=== PATIENT | female | born 1955 | race Caucasian/White ===

== ENCOUNTER 2016-11-19 08:00 | Inpatient (IN) | payer MEDICARE, MEDICAID ==
[~2016-11-19] VITALS: Ht 170.2 cm; Wt 99.9 kg
[~2016-11-19 08:00] MED LIST: BENZ2TAB10 PO; CLOZ100 PO; LACT1TAB20 PO; LEVO50 PO; PANT40TA25 PO; PREM625 PO; QUET200T PO
[2016-11-19] MEDS ORDERED: DOCU250C91 PO (08:19)
[2016-11-19 08:54] LABS: BASOPHILS # (AUTO) 0.05 K/uL (0.00-0.20); BASOPHILS % (AUTO) 0.6 % (0.0-2.0); EOSINOPHILS # (AUTO) 0.19 K/uL (0.00-0.70); HEMATOCRIT 40.1 % (36-46); HEMOGLOBIN 13.5 g/dL (12.0-16.0); LYMPHOCYTES # (AUTO) 2.8 K/uL (1.0-4.8); LYMPHOCYTES % (AUTO) 34.1 % (22.0-44.0); MEAN CORPUSCULAR HEMOGLOBIN 29.3 pg (26.0-34.0); MEAN CORPUSCULAR HGB CONC 33.7 G/dL (31.0-37.0); MEAN CORPUSCULAR VOLUME 87 fL (80-100); MONOCYTES # (AUTO) 0.7 K/uL (0.1-1.0); MONOCYTES % (AUTO) 8.2 % (2.0-9.0); NEUTROPHILS # (AUTO) 4.6 K/uL (1.8-7.7); NEUTROPHILS % (AUTO) 54.9 % (40.0-70.0); PLATELET COUNT (AUTO) 323 K/uL (150-450); RED BLOOD CELL COUNT(AUTO) 4.62 MIL/uL (4.00-5.20); RED CELL DISTRIBUTION WIDTH 14.8 % (11.5-14.5); WHITE BLOOD COUNT (AUTO) 8.3 K/uL (4.5-11.0)
[2016-11-19 09:02] LABS: ANION GAP 9 mmol/L (8-16); CALCIUM, TOTAL 9.3 mg/dL (8.8-10.5); CARBON DIOXIDE 25 mmol/L (22-29); CHLORIDE 104 mmol/L (98-107); GLOMERULAR FILTR. RATE CALC > 60 mL/min (>60); POTASSIUM 3.7 mmol/L (3.5-5.1); SODIUM SERUM 138 mmol/L (136-145); UREA NITROGEN, BLOOD 18 mg/dL (7-18)
[2016-11-19 09:08] LABS: ALANINE AMINOTRANSFERASE 28 U/L (12-78); ALBUMIN 3.7 g/dL (3.4-5.0); ASPARTATE AMINOTRANSFERASE 18 U/L (15-37); BILIRUBIN,TOTAL 0.4 mg/dL (0.1-1.0); TOTAL PROTEIN, SERUM 7.2 g/dL (6.4-8.2)
[2016-11-19] MEDS ORDERED: LORazepam 2 MG/ML VIAL IM ONE (13:00)
[2016-11-19] MEDS ORDERED: HALOPERIDOL LACTATE 5 MG/ML VIAL IM ONE (13:00)
[2016-11-19 17:31] VITALS: BP 154/82
[2016-11-19 20:56] LABS: GLUCOSE,POINT OF CARE 126 MG/DL (70-110)
[2016-11-19] MEDS: BENZTROPINE MESYLATE 2 MG TABLET PO SCH (21:00)
[2016-11-19] MEDS: QUEtiapine FUMARATE 200 MG TABLET PO SCH (21:00)
[2016-11-19 22:31] LABS: GLUCOSE COMMENT 1 Doctor Notified; GLUCOSE,POINT OF CARE 102 MG/DL (70-110)
[2016-11-19 22:50] VITALS: BP 140/73
[2016-11-19] MEDS: LORazepam 2 MG TABLET PO PRN (23:02)
[2016-11-20 00:25] VITALS: BP 110/66
[2016-11-20] MEDS: HALOPERIDOL 5 MG TABLET PO PRN ×2 (00:30→12:42)
[2016-11-20] MEDS: ZOLPIDEM TARTRATE 10 MG TABLET PO PRN (00:30)
[2016-11-20] MEDS ORDERED: PNEUMOCOCCAL VACCINE POLYVALENT 0.5 ML VIAL [PPSV23] IM ONE (03:15)
[2016-11-20] MEDS ORDERED: -PHARMACY VACCINE NOTE- MISC ONE ×2 (03:15)
[2016-11-20] MEDS: LEVOTHYROXINE SODIUM 50 MCG TABLET PO SCH (06:06)
[2016-11-20 09:13] VITALS: BP 126/72
[2016-11-20] MEDS: ESTROGENS,CONJUGATED 0.625 MG TABLET PO SCH (09:13)
[2016-11-20] MEDS: PANTOPRAZOLE SODIUM 40 MG DR TABLET PO SCH (09:13)
[2016-11-20] MEDS: NICOTINE 21 MG/24 HOUR PATCH TD SCH (09:13)
[2016-11-20] MEDS ORDERED: ACETAMINOPHEN 325 MG TABLET PO PRN (10:00)
[2016-11-20] MEDS ORDERED: IBUPROFEN 600 MG TABLET PO PRN (10:00)
[2016-11-20] MEDS ORDERED: ONDANSETRON HCL 4 MG TABLET PO PRN (10:00)
[2016-11-20] MEDS ORDERED: MAGNESIUM HYDROXIDE SUSPENSION 30 ML UDCUP PO PRN (10:00)
[2016-11-20] MEDS ORDERED: MAG HYDROX/AL HYDROX/SIMETH ES 30 ML SUSPENSION UDCUP PO PRN (10:00)
[2016-11-20] MEDS ORDERED: ALBUTEROL SULFATE HFA 90 MCG/PUFF 8 GM INHALER IH PRN (10:00)
[2016-11-20] MEDS ORDERED: BACITRACIN 28.4 GM OINTMENT TP PRN (10:00)
[2016-11-20] MEDS ORDERED: PETROLATUM,WHITE 71 GM JELLY TP PRN (10:00)
[2016-11-20] MEDS ORDERED: CloNIDine HCL 0.1 MG TABLET PO PRN (10:00)
[2016-11-20] MEDS ORDERED: LOPERAMIDE HCL 2 MG CAPSULE PO PRN (10:00)
[2016-11-20] MEDS ORDERED: BENZOCAINE/MENTHOL LOZENGE MM PRN (10:00)
[2016-11-20] MEDS: LORazepam 2 MG TABLET PO PRN (12:42)
[2016-11-20 16:17] VITALS: BP 115/64
[2016-11-20] MEDS: NYSTATIN 30 GM CREAM TP SCH (16:25)
[2016-11-20] MEDS: BENZTROPINE MESYLATE 2 MG TABLET PO SCH (20:23)
[2016-11-20] MEDS: QUEtiapine FUMARATE 200 MG TABLET PO SCH (20:23)
[2016-11-21 00:17] VITALS: BP 107/67
[2016-11-21] MEDS: LORazepam 2 MG TABLET PO PRN (01:02)
[2016-11-21] MEDS: HALOPERIDOL 5 MG TABLET PO PRN (01:02)
[2016-11-21] MEDS: LEVOTHYROXINE SODIUM 50 MCG TABLET PO SCH (05:51)
[2016-11-21] MEDS: NICOTINE 21 MG/24 HOUR PATCH TD SCH (09:00)
[2016-11-21] MEDS: ESTROGENS,CONJUGATED 0.625 MG TABLET PO SCH (09:09)
[2016-11-21] MEDS: PANTOPRAZOLE SODIUM 40 MG DR TABLET PO SCH (09:09)
[2016-11-21] MEDS: NYSTATIN 30 GM CREAM TP SCH ×2 (09:09→17:51)
[2016-11-21 09:14] VITALS: BP 109/60
[2016-11-21 16:02] VITALS: BP 132/72
[2016-11-21] MEDS: QUEtiapine FUMARATE 200 MG TABLET PO SCH (21:22)
[2016-11-21] MEDS: BENZTROPINE MESYLATE 2 MG TABLET PO SCH (21:22)
[2016-11-22 01:55] VITALS: BP 122/70
[2016-11-22] MEDS: LEVOTHYROXINE SODIUM 50 MCG TABLET PO SCH (06:30)
[2016-11-22 08:15] VITALS: BP 101/76
[2016-11-22] MEDS: PANTOPRAZOLE SODIUM 40 MG DR TABLET PO SCH (08:25)
[2016-11-22] MEDS: ESTROGENS,CONJUGATED 0.625 MG TABLET PO SCH (08:25)
[2016-11-22] MEDS: NYSTATIN 30 GM CREAM TP SCH ×2 (08:25→16:40)
[2016-11-22] MEDS: NICOTINE 21 MG/24 HOUR PATCH TD SCH (08:25)
[2016-11-22 16:11] VITALS: BP 116/71
[2016-11-22] MEDS: QUEtiapine FUMARATE 200 MG TABLET PO SCH (20:31)
[2016-11-22] MEDS: BENZTROPINE MESYLATE 2 MG TABLET PO SCH (20:31)
[2016-11-23 00:46] VITALS: BP 102/72
[2016-11-23] MEDS: LEVOTHYROXINE SODIUM 50 MCG TABLET PO SCH (06:15)
[2016-11-23] MEDS: ESTROGENS,CONJUGATED 0.625 MG TABLET PO SCH (08:50)
[2016-11-23] MEDS: PANTOPRAZOLE SODIUM 40 MG DR TABLET PO SCH (08:50)
[2016-11-23 08:51] VITALS: BP 147/89
[2016-11-23] MEDS: NYSTATIN 30 GM CREAM TP SCH ×2 (09:44→16:32)
[2016-11-23 16:09] VITALS: BP 125/79
[2016-11-23] MEDS: QUEtiapine FUMARATE 200 MG TABLET PO SCH (20:36)
[2016-11-23] MEDS: BENZTROPINE MESYLATE 2 MG TABLET PO SCH (20:36)
[2016-11-24 05:11] VITALS: BP 130/82
[2016-11-24] MEDS: LEVOTHYROXINE SODIUM 50 MCG TABLET PO SCH (06:14)
[2016-11-24 08:42] VITALS: BP 126/72
[2016-11-24] MEDS: ESTROGENS,CONJUGATED 0.625 MG TABLET PO SCH (09:14)
[2016-11-24] MEDS: NYSTATIN 30 GM CREAM TP SCH ×2 (09:14→16:46)
[2016-11-24] MEDS: PANTOPRAZOLE SODIUM 40 MG DR TABLET PO SCH (09:14)
[2016-11-24] MEDS: LORazepam 2 MG TABLET PO PRN (14:28)
[2016-11-24] MEDS: HALOPERIDOL 5 MG TABLET PO PRN (14:28)
[2016-11-24 16:03] VITALS: BP 119/61
[2016-11-24] MEDS: CloZAPine 100 MG TABLET PO SCH (20:34)
[2016-11-24] MEDS: BENZTROPINE MESYLATE 2 MG TABLET PO SCH (20:34)
[2016-11-24] MEDS: QUEtiapine FUMARATE 200 MG TABLET PO SCH (20:34)
[2016-11-25 04:15] VITALS: BP_SYST 122; BP_SYST 131; BP_DIAS 71; BP_DIAS 87
[2016-11-25] MEDS: LEVOTHYROXINE SODIUM 50 MCG TABLET PO SCH (06:50)
[2016-11-25 07:59] LABS: BASOPHILS % (AUTO) 0.6 % (0.0-2.0); EOSINOPHILS % (AUTO) 3.2 % (1.0-6.0); HEMATOCRIT 38.8 % (36-46); HEMOGLOBIN 12.7 g/dL (12.0-16.0); LYMPHOCYTES # (AUTO) 2.7 K/uL (1.0-4.8); MEAN CORPUSCULAR HEMOGLOBIN 29.1 pg (26.0-34.0); MEAN CORPUSCULAR HGB CONC 32.6 G/dL (31.0-37.0); MEAN CORPUSCULAR VOLUME 89 fL (80-100); MONOCYTES # (AUTO) 0.9 K/uL (0.1-1.0); MONOCYTES % (AUTO) 9.8 % (2.0-9.0); NEUTROPHILS % (AUTO) 56.4 % (40.0-70.0); PLATELET COUNT (AUTO) 309 K/uL (150-450); RED BLOOD CELL COUNT(AUTO) 4.34 MIL/uL (4.00-5.20); RED CELL DISTRIBUTION WIDTH 14.4 % (11.5-14.5); WHITE BLOOD COUNT (AUTO) 8.9 K/uL (4.5-11.0)
[2016-11-25] MEDS: ESTROGENS,CONJUGATED 0.625 MG TABLET PO SCH (08:30)
[2016-11-25] MEDS: PANTOPRAZOLE SODIUM 40 MG DR TABLET PO SCH (08:30)
[2016-11-25] MEDS: NYSTATIN 30 GM CREAM TP SCH ×2 (08:31→16:27)
[2016-11-25] MEDS: CloZAPine 100 MG TABLET PO SCH ×2 (08:31→20:08)
[2016-11-25] MEDS: LORazepam 2 MG TABLET PO PRN (08:47)
[2016-11-25 09:14] VITALS: BP 112/60
[2016-11-25] MEDS ORDERED: LORazepam 2 MG/ML VIAL ONE (09:57)
[2016-11-25] MEDS ORDERED: DiphenhydrAMINE HCL 50 MG/ML VIAL ONE (09:58)
[2016-11-25] MEDS ORDERED: HALOPERIDOL LACTATE 5 MG/ML VIAL ONE (09:58)
[2016-11-25] MEDS ORDERED: LORazepam 2 MG/ML VIAL IM ONE (10:15)
[2016-11-25] MEDS ORDERED: DiphenhydrAMINE HCL 50 MG/ML VIAL IM ONE (10:15)
[2016-11-25] MEDS ORDERED: HALOPERIDOL LACTATE 5 MG/ML VIAL IM ONE (10:15)
[2016-11-25 10:43] VITALS: BP 119/72
[2016-11-25 16:04] VITALS: BP 109/66
[2016-11-25] MEDS: QUEtiapine FUMARATE 200 MG TABLET PO SCH (20:08)
[2016-11-25] MEDS: BENZTROPINE MESYLATE 2 MG TABLET PO SCH (20:08)
[2016-11-25] MEDS: ZOLPIDEM TARTRATE 10 MG TABLET PO PRN (21:01)
[2016-11-25] MEDS: HALOPERIDOL 5 MG TABLET PO PRN (21:01)
[2016-11-26] MEDS: LEVOTHYROXINE SODIUM 50 MCG TABLET PO SCH (06:52)
[2016-11-26 07:27] VITALS: BP 108/66
[2016-11-26] MEDS: CloZAPine 100 MG TABLET PO SCH ×2 (08:54→20:41)
[2016-11-26] MEDS: ESTROGENS,CONJUGATED 0.625 MG TABLET PO SCH (08:54)
[2016-11-26] MEDS: PANTOPRAZOLE SODIUM 40 MG DR TABLET PO SCH (08:54)
[2016-11-26] MEDS: NYSTATIN 30 GM CREAM TP SCH ×2 (08:55→16:10)
[2016-11-26] MEDS: LORazepam 2 MG TABLET PO PRN ×2 (09:02→16:11)
[2016-11-26 09:25] VITALS: BP 119/74
[2016-11-26] MEDS: HALOPERIDOL 5 MG TABLET PO PRN (12:19)
[2016-11-26 16:11] VITALS: BP 117/84
[2016-11-26] MEDS: QUEtiapine FUMARATE 200 MG TABLET PO SCH (20:41)
[2016-11-26] MEDS: BENZTROPINE MESYLATE 2 MG TABLET PO SCH (20:41)
[2016-11-27 05:21] VITALS: BP 100/60
[2016-11-27] MEDS: LORazepam 2 MG TABLET PO PRN ×3 (05:28→17:05)
[2016-11-27] MEDS: LEVOTHYROXINE SODIUM 50 MCG TABLET PO SCH (06:24)
[2016-11-27] MEDS: ESTROGENS,CONJUGATED 0.625 MG TABLET PO SCH (08:29)
[2016-11-27] MEDS: CloZAPine 100 MG TABLET PO SCH ×2 (08:29→20:29)
[2016-11-27] MEDS: PANTOPRAZOLE SODIUM 40 MG DR TABLET PO SCH (08:29)
[2016-11-27] MEDS: HALOPERIDOL 5 MG TABLET PO PRN (08:29)
[2016-11-27] MEDS: NYSTATIN 30 GM CREAM TP SCH ×2 (08:30→16:31)
[2016-11-27 08:49] VITALS: BP 118/75
[2016-11-27 16:00] VITALS: BP 125/72
[2016-11-27] MEDS: BENZTROPINE MESYLATE 2 MG TABLET PO SCH (20:29)
[2016-11-27] MEDS: QUEtiapine FUMARATE 200 MG TABLET PO SCH (20:30)
[2016-11-28 00:17] VITALS: BP 110/65
[2016-11-28] MEDS: LEVOTHYROXINE SODIUM 50 MCG TABLET PO SCH (06:44)
[2016-11-28] MEDS: ESTROGENS,CONJUGATED 0.625 MG TABLET PO SCH (08:34)
[2016-11-28] MEDS: CloZAPine 100 MG TABLET PO SCH ×2 (08:34→20:43)
[2016-11-28] MEDS: PANTOPRAZOLE SODIUM 40 MG DR TABLET PO SCH (08:34)
[2016-11-28 09:03] VITALS: BP 134/81
[2016-11-28] MEDS: NYSTATIN 30 GM CREAM TP SCH ×2 (09:36→16:33)
[2016-11-28 16:00] VITALS: BP 112/60
[2016-11-28] MEDS: HALOPERIDOL 5 MG TABLET PO PRN (18:28)
[2016-11-28] MEDS: QUEtiapine FUMARATE 200 MG TABLET PO SCH (20:43)
[2016-11-28] MEDS: BENZTROPINE MESYLATE 2 MG TABLET PO SCH (20:43)
[2016-11-29 01:29] VITALS: BP 111/95
[2016-11-29] MEDS: LEVOTHYROXINE SODIUM 50 MCG TABLET PO SCH (06:39)
[2016-11-29 08:11] VITALS: BP 120/68
[2016-11-29] MEDS: CloZAPine 100 MG TABLET PO SCH ×2 (10:03→20:35)
[2016-11-29] MEDS: ESTROGENS,CONJUGATED 0.625 MG TABLET PO SCH (10:03)
[2016-11-29] MEDS: PANTOPRAZOLE SODIUM 40 MG DR TABLET PO SCH (10:03)
[2016-11-29] MEDS: NYSTATIN 30 GM CREAM TP SCH ×2 (10:03→16:49)
[2016-11-29 16:02] VITALS: BP 123/70
[2016-11-29] MEDS: BENZTROPINE MESYLATE 2 MG TABLET PO SCH (20:35)
[2016-11-29] MEDS: QUEtiapine FUMARATE 200 MG TABLET PO SCH (20:35)
[2016-11-30 01:52] VITALS: BP 116/67
[2016-11-30] MEDS: LEVOTHYROXINE SODIUM 50 MCG TABLET PO SCH (06:36)
[2016-11-30] MEDS: CloZAPine 100 MG TABLET PO SCH ×2 (08:14→20:47)
[2016-11-30] MEDS: PANTOPRAZOLE SODIUM 40 MG DR TABLET PO SCH (08:14)
[2016-11-30] MEDS: NYSTATIN 30 GM CREAM TP SCH ×2 (08:15→16:07)
[2016-11-30] MEDS: ESTROGENS,CONJUGATED 0.625 MG TABLET PO SCH (08:15)
[2016-11-30 08:44] VITALS: BP 118/68
[2016-11-30 16:01] VITALS: BP 122/82
[2016-11-30] MEDS: HALOPERIDOL 5 MG TABLET PO PRN (17:51)
[2016-11-30] MEDS: QUEtiapine FUMARATE 200 MG TABLET PO SCH (20:47)
[2016-11-30] MEDS: LORazepam 2 MG TABLET PO PRN (20:47)
[2016-11-30] MEDS: BENZTROPINE MESYLATE 2 MG TABLET PO SCH (20:47)
[2016-12-01 01:21] VITALS: BP 115/69
[2016-12-01] MEDS: LEVOTHYROXINE SODIUM 50 MCG TABLET PO SCH (05:51)
[2016-12-01 08:04] VITALS: BP 127/68
[2016-12-01] MEDS: NYSTATIN 30 GM CREAM TP SCH ×2 (09:36→16:32)
[2016-12-01] MEDS: CloZAPine 100 MG TABLET PO SCH ×2 (09:36→20:32)
[2016-12-01] MEDS: ESTROGENS,CONJUGATED 0.625 MG TABLET PO SCH (09:36)
[2016-12-01] MEDS: PANTOPRAZOLE SODIUM 40 MG DR TABLET PO SCH (09:36)
[2016-12-01 16:31] VITALS: BP 124/76
[2016-12-01] MEDS: BENZTROPINE MESYLATE 2 MG TABLET PO SCH (20:32)
[2016-12-01] MEDS: QUEtiapine FUMARATE 200 MG TABLET PO SCH (20:32)
[2016-12-02 00:03] VITALS: BP 120/60
[2016-12-02] MEDS: LEVOTHYROXINE SODIUM 50 MCG TABLET PO SCH (06:13)
[2016-12-02 08:24] LABS: BASOPHILS % (AUTO) 0.5 % (0.0-2.0); HEMATOCRIT 38.2 % (36-46); HEMOGLOBIN 12.3 g/dL (12.0-16.0); LYMPHOCYTES # (AUTO) 3.6 K/uL (1.0-4.8); LYMPHOCYTES % (AUTO) 37.7 % (22.0-44.0); MEAN CORPUSCULAR HEMOGLOBIN 28.9 pg (26.0-34.0); MEAN CORPUSCULAR HGB CONC 32.1 G/dL (31.0-37.0); MEAN CORPUSCULAR VOLUME 90 fL (80-100); MONOCYTES % (AUTO) 10.1 % (2.0-9.0); NEUTROPHILS # (AUTO) 4.4 K/uL (1.8-7.7); NEUTROPHILS % (AUTO) 46.7 % (40.0-70.0); PLATELET COUNT (AUTO) 317 K/uL (150-450); RED BLOOD CELL COUNT(AUTO) 4.25 MIL/uL (4.00-5.20); WHITE BLOOD COUNT (AUTO) 9.5 K/uL (4.5-11.0)
[2016-12-02] MEDS: ESTROGENS,CONJUGATED 0.625 MG TABLET PO SCH (09:09)
[2016-12-02] MEDS: CloZAPine 100 MG TABLET PO SCH ×2 (09:09→20:13)
[2016-12-02] MEDS: PANTOPRAZOLE SODIUM 40 MG DR TABLET PO SCH (09:10)
[2016-12-02] MEDS: NYSTATIN 30 GM CREAM TP SCH ×2 (09:10→16:30)
[2016-12-02 09:20] VITALS: BP 145/83
[2016-12-02] MEDS: LORazepam 2 MG TABLET PO PRN (09:43)
[2016-12-02 16:09] VITALS: BP 119/63
[2016-12-02] MEDS: BENZTROPINE MESYLATE 2 MG TABLET PO SCH (20:13)
[2016-12-02] MEDS: QUEtiapine FUMARATE 200 MG TABLET PO SCH (20:13)
[2016-12-03 01:23] VITALS: BP 122/68
[2016-12-03] MEDS: LEVOTHYROXINE SODIUM 50 MCG TABLET PO SCH (06:00)
[2016-12-03] MEDS: CloZAPine 100 MG TABLET PO SCH ×2 (08:31→20:10)
[2016-12-03] MEDS: ESTROGENS,CONJUGATED 0.625 MG TABLET PO SCH (08:31)
[2016-12-03] MEDS: HALOPERIDOL 5 MG TABLET PO PRN ×2 (08:31→16:06)
[2016-12-03] MEDS: PANTOPRAZOLE SODIUM 40 MG DR TABLET PO SCH (08:31)
[2016-12-03] MEDS: NYSTATIN 30 GM CREAM TP SCH ×2 (08:32→16:06)
[2016-12-03 09:07] VITALS: BP 111/73
[2016-12-03 16:06] VITALS: BP 138/80
[2016-12-03] MEDS: BENZTROPINE MESYLATE 2 MG TABLET PO SCH (20:10)
[2016-12-03] MEDS: QUEtiapine FUMARATE 200 MG TABLET PO SCH (20:10)
[2016-12-04 03:22] VITALS: BP 118/81
[2016-12-04] MEDS: LEVOTHYROXINE SODIUM 50 MCG TABLET PO SCH (06:20)
[2016-12-04] MEDS: ESTROGENS,CONJUGATED 0.625 MG TABLET PO SCH (08:48)
[2016-12-04] MEDS: PANTOPRAZOLE SODIUM 40 MG DR TABLET PO SCH (08:48)
[2016-12-04] MEDS: CloZAPine 100 MG TABLET PO SCH ×2 (08:48→20:38)
[2016-12-04] MEDS: NYSTATIN 30 GM CREAM TP SCH ×2 (08:49→16:32)
[2016-12-04] MEDS: LORazepam 2 MG TABLET PO PRN ×2 (08:49→20:09)
[2016-12-04 08:53] VITALS: BP 124/80
[2016-12-04 16:36] VITALS: BP 125/68
[2016-12-04] MEDS: BENZTROPINE MESYLATE 2 MG TABLET PO SCH (20:38)
[2016-12-04] MEDS: QUEtiapine FUMARATE 200 MG TABLET PO SCH (20:38)
[2016-12-05 05:21] VITALS: BP 125/83
[2016-12-05] MEDS: LEVOTHYROXINE SODIUM 50 MCG TABLET PO SCH (06:38)
[2016-12-05] MEDS: CloZAPine 100 MG TABLET PO SCH ×2 (08:32→20:31)
[2016-12-05] MEDS: NYSTATIN 30 GM CREAM TP SCH ×2 (08:32→16:35)
[2016-12-05] MEDS: PANTOPRAZOLE SODIUM 40 MG DR TABLET PO SCH (08:32)
[2016-12-05] MEDS: ESTROGENS,CONJUGATED 0.625 MG TABLET PO SCH (08:32)
[2016-12-05 08:37] VITALS: BP 109/63
[2016-12-05] MEDS: LORazepam 2 MG TABLET PO PRN ×2 (09:03→13:15)
[2016-12-05 16:34] VITALS: BP 120/68
[2016-12-05] MEDS: BENZTROPINE MESYLATE 2 MG TABLET PO SCH (20:31)
[2016-12-05] MEDS: QUEtiapine FUMARATE 200 MG TABLET PO SCH (20:31)
[2016-12-06 00:48] VITALS: BP 119/64
[2016-12-06] MEDS: ZOLPIDEM TARTRATE 10 MG TABLET PO PRN (01:00)
[2016-12-06] MEDS: LEVOTHYROXINE SODIUM 50 MCG TABLET PO SCH (06:20)
[2016-12-06 08:07] VITALS: BP 100/61
[2016-12-06] MEDS: NYSTATIN 30 GM CREAM TP SCH ×2 (08:46→16:25)
[2016-12-06] MEDS: ESTROGENS,CONJUGATED 0.625 MG TABLET PO SCH (08:46)
[2016-12-06] MEDS: CloZAPine 100 MG TABLET PO SCH ×2 (08:46→20:53)
[2016-12-06] MEDS: PANTOPRAZOLE SODIUM 40 MG DR TABLET PO SCH (08:46)
[2016-12-06 16:05] VITALS: BP 125/79
[2016-12-06] MEDS: BENZTROPINE MESYLATE 2 MG TABLET PO SCH (20:53)
[2016-12-06] MEDS: QUEtiapine FUMARATE 200 MG TABLET PO SCH (20:53)
[2016-12-07 00:03] VITALS: BP 108/61
[2016-12-07] MEDS: LEVOTHYROXINE SODIUM 50 MCG TABLET PO SCH (06:24)
[2016-12-07 08:12] VITALS: BP 110/67
[2016-12-07] MEDS: NYSTATIN 30 GM CREAM TP SCH ×2 (08:42→16:31)
[2016-12-07] MEDS: PANTOPRAZOLE SODIUM 40 MG DR TABLET PO SCH (08:42)
[2016-12-07] MEDS: CloZAPine 100 MG TABLET PO SCH ×2 (08:42→20:32)
[2016-12-07] MEDS: ESTROGENS,CONJUGATED 0.625 MG TABLET PO SCH (08:42)
[2016-12-07 16:06] VITALS: BP 133/75
[2016-12-07] MEDS: BENZTROPINE MESYLATE 2 MG TABLET PO SCH (20:32)
[2016-12-07] MEDS: QUEtiapine FUMARATE 200 MG TABLET PO SCH (20:32)
[2016-12-08 06:20] VITALS: BP 100/60
[2016-12-08] MEDS: LEVOTHYROXINE SODIUM 50 MCG TABLET PO SCH (06:35)
[2016-12-08 08:03] VITALS: BP 120/68
[2016-12-08] MEDS: ESTROGENS,CONJUGATED 0.625 MG TABLET PO SCH (08:43)
[2016-12-08] MEDS: CloZAPine 100 MG TABLET PO SCH (08:43)
[2016-12-08] MEDS: NYSTATIN 30 GM CREAM TP SCH (08:43)
[2016-12-08] MEDS: PANTOPRAZOLE SODIUM 40 MG DR TABLET PO SCH (08:43)
== END 2016-12-08 10:50 | disposition home or self-care (01) | DRG 885 ==
LOC: EMS 08:03 → AHU 13:30 → B2S 21:50 → B2X 22:21
PROVIDERS: ADMIT Psychiatry & Neurology Psychiatry; ATTEND Psychiatry & Neurology Psychiatry
DX: F20.0 Paranoid schizophrenia (principal); B35.6 Tinea cruris; E03.9 Hypothyroidism, unspecified; E11.9 Type 2 diabetes mellitus without complications; E66.9 Obesity, unspecified; E78.00 Pure hypercholesterolemia, unspecified; I10 Essential (primary) hypertension; J44.9 Chronic obstructive pulmonary disease, unspecified; G47.00 Insomnia, unspecified; K21.9 Gastro-esophageal reflux disease without esophagitis; K59.00 Constipation, unspecified; D64.9 Anemia, unspecified; M25.561 Pain in right knee; M25.562 Pain in left knee; M54.9 Dorsalgia, unspecified; M19.90 Unspecified osteoarthritis, unspecified site; F41.9 Anxiety disorder, unspecified; N95.1 Menopausal and female climacteric states; Z90.49 Acquired absence of other specified parts of digestive tract; Z98.890 Other specified postprocedural states; Z79.899 Other long term (current) drug therapy; Z68.33 Body mass index [BMI] 33.0-33.9, adult; Z28.89 Immunization not carried out for other reason
CPT/HCPCS: 82962; 87081; 96372; 99285; A0429; G0480; J1200; J1630; J2060

== ENCOUNTER 2017-02-06 15:59 | Inpatient (IN) | payer MEDICARE, SELFPAY ==
[~2017-02-06] VITALS: Ht 167.6 cm; Wt 98.0 kg
[~2017-02-06 15:59] MED LIST changes: -LACT1TAB20 PO
[2017-02-06] MEDS ORDERED: PREM625 PO (17:38)
[2017-02-06] MEDS ORDERED: RISP4 PO (17:38)
[2017-02-06] MEDS ORDERED: BUPR450T PO (17:38)
[2017-02-06] MEDS ORDERED: TRAZ-147 PO (17:38)
[2017-02-06 20:11] LABS: BASOPHILS % (AUTO) 0.4 % (0.0-2.0); EOSINOPHILS % (AUTO) 2.9 % (1.0-6.0); HEMATOCRIT 41.1 % (36-46); HEMOGLOBIN 13.3 g/dL (12.0-16.0); LYMPHOCYTES # (AUTO) 4.5 K/uL (1.0-4.8); LYMPHOCYTES % (AUTO) 41.2 % (22.0-44.0); MEAN CORPUSCULAR HEMOGLOBIN 28.5 pg (26.0-34.0); MEAN CORPUSCULAR HGB CONC 32.4 G/dL (31.0-37.0); MEAN CORPUSCULAR VOLUME 88 fL (80-100); MONOCYTES # (AUTO) 0.8 K/uL (0.1-1.0); MONOCYTES % (AUTO) 7.2 % (2.0-9.0); NEUTROPHILS # (AUTO) 5.3 K/uL (1.8-7.7); NEUTROPHILS % (AUTO) 48.3 % (40.0-70.0); PLATELET COUNT (AUTO) 345 K/uL (150-450); RED BLOOD CELL COUNT(AUTO) 4.67 MIL/uL (4.00-5.20); RED CELL DISTRIBUTION WIDTH 15.2 % (11.5-14.5); WHITE BLOOD COUNT (AUTO) 10.9 K/uL (4.5-11.0)
[2017-02-06] MEDS ORDERED: QUEtiapine FUMARATE 100 MG TABLET PO ONE (20:15)
[2017-02-06] MEDS ORDERED: BUPR-93 PO (20:24)
[2017-02-06] MEDS ORDERED: RISP2 PO (20:25)
[2017-02-06 20:27] LABS: ANION GAP 8 mmol/L (8-16); CALCIUM, TOTAL 9.3 mg/dL (8.8-10.5); CARBON DIOXIDE 28 mmol/L (22-29); CHLORIDE 105 mmol/L (98-107); CREATININE 0.84 mg/dL (0.60-1.30); GLOMERULAR FILTR. RATE CALC > 60 mL/min (>60); POTASSIUM 3.6 mmol/L (3.5-5.1); SODIUM SERUM 141 mmol/L (136-145); UREA NITROGEN, BLOOD 18 mg/dL (7-18)
[2017-02-06 20:32] LABS: ALANINE AMINOTRANSFERASE 26 U/L (12-78); ALBUMIN 3.7 g/dL (3.4-5.0); ASPARTATE AMINOTRANSFERASE 15 U/L (15-37); BILIRUBIN,TOTAL 0.3 mg/dL (0.1-1.0); TOTAL PROTEIN, SERUM 7.2 g/dL (6.4-8.2)
[2017-02-06 22:15] VITALS: BP 119/68
[2017-02-07] MEDS: ZOLPIDEM TARTRATE 10 MG TABLET PO PRN (00:44)
[2017-02-07 00:48] VITALS: BP 140/85
[2017-02-07 08:05] VITALS: BP 158/98
[2017-02-07 10:26] LABS: GLUCOSE, URINE (UA) NEGATIVE (NEGATIVE); KETONES,URINE 15 mg/dL (NEGATIVE); LEUKOCYTE ESTERASE ,URINE NEGATIVE (NEGATIVE); OCCULT BLOOD,URINE NEGATIVE (NEGATIVE); PROTEIN,URINE NEGATIVE (NEGATIVE)
[2017-02-07 10:29] LABS: ADD UA MICROSCOPIC YES; APPEARANCE,URINE HAZY (CLEAR)
[2017-02-07 10:35] LABS: CALCIUM OXALATE CRYSTALS,UR Moderate /LPF (None Seen); RBC,URINE 0-2 /HPF (0-2); SQUAMOUS EPITHELIAL CELL,UR Few /LPF (None Seen)
[2017-02-07 16:35] VITALS: BP 140/82
[2017-02-08 04:30] VITALS: BP 107/70
[2017-02-08 08:01] VITALS: BP 135/75
[2017-02-08] MEDS: LORazepam 2 MG TABLET PO PRN (09:28)
[2017-02-08] MEDS: NITROFURANTOIN/NITROFURAN MAC 100 MG CAPSULE [MACROBID] PO SCH (16:56)
[2017-02-08 18:00] VITALS: BP 102/63
[2017-02-09] MEDS: QUEtiapine FUMARATE 100 MG TABLET PO PRN (04:57)
[2017-02-09 05:07] VITALS: BP 127/79
[2017-02-09 08:05] VITALS: BP 149/83
[2017-02-09] MEDS: NITROFURANTOIN/NITROFURAN MAC 100 MG CAPSULE [MACROBID] PO SCH ×2 (08:10→17:23)
[2017-02-09] MEDS: LEVOTHYROXINE SODIUM 50 MCG TABLET PO SCH (08:10)
[2017-02-09] MEDS: PANTOPRAZOLE SODIUM 40 MG DR TABLET PO SCH (08:10)
[2017-02-09] MEDS: LORazepam 2 MG TABLET PO PRN (08:11)
[2017-02-09 17:30] VITALS: BP 126/62
[2017-02-09] MEDS: BENZTROPINE MESYLATE 2 MG TABLET PO SCH (20:15)
[2017-02-09] MEDS: QUEtiapine FUMARATE 200 MG TABLET PO SCH (20:22)
[2017-02-10] MEDS: QUEtiapine FUMARATE 100 MG TABLET PO PRN (02:40)
[2017-02-10 06:45] LABS: BASOPHILS % (AUTO) 0.8 % (0.0-2.0); EOSINOPHILS % (AUTO) 3.3 % (1.0-6.0); HEMATOCRIT 38.8 % (36-46); HEMOGLOBIN 12.5 g/dL (12.0-16.0); LYMPHOCYTES # (AUTO) 3.7 K/uL (1.0-4.8); LYMPHOCYTES % (AUTO) 40.5 % (22.0-44.0); MEAN CORPUSCULAR HEMOGLOBIN 28.4 pg (26.0-34.0); MEAN CORPUSCULAR HGB CONC 32.1 G/dL (31.0-37.0); MEAN CORPUSCULAR VOLUME 88 fL (80-100); MONOCYTES # (AUTO) 0.9 K/uL (0.1-1.0); MONOCYTES % (AUTO) 9.5 % (2.0-9.0); NEUTROPHILS # (AUTO) 4.2 K/uL (1.8-7.7); NEUTROPHILS % (AUTO) 45.9 % (40.0-70.0); PLATELET COUNT (AUTO) 294 K/uL (150-450); WHITE BLOOD COUNT (AUTO) 9.2 K/uL (4.5-11.0)
[2017-02-10 08:00] VITALS: BP 121/92
[2017-02-10] MEDS: LEVOTHYROXINE SODIUM 50 MCG TABLET PO SCH (08:22)
[2017-02-10] MEDS: PANTOPRAZOLE SODIUM 40 MG DR TABLET PO SCH (08:22)
[2017-02-10] MEDS: NITROFURANTOIN/NITROFURAN MAC 100 MG CAPSULE [MACROBID] PO SCH ×2 (08:23→16:34)
[2017-02-10] MEDS ORDERED: CloZAPine 25 MG TABLET PO SCH (09:00)
[2017-02-10 20:20] VITALS: BP 138/66
[2017-02-10] MEDS: BENZTROPINE MESYLATE 2 MG TABLET PO SCH (21:15)
[2017-02-10] MEDS: QUEtiapine FUMARATE 200 MG TABLET PO SCH (21:16)
[2017-02-11] MEDS: QUEtiapine FUMARATE 100 MG TABLET PO PRN ×3 (01:58→17:09)
[2017-02-11] MEDS: ZOLPIDEM TARTRATE 10 MG TABLET PO PRN (02:19)
[2017-02-11] MEDS: LORazepam 2 MG TABLET PO PRN (07:47)
[2017-02-11 08:31] VITALS: BP 136/65
[2017-02-11] MEDS: NITROFURANTOIN/NITROFURAN MAC 100 MG CAPSULE [MACROBID] PO SCH ×2 (08:31→17:09)
[2017-02-11] MEDS: PANTOPRAZOLE SODIUM 40 MG DR TABLET PO SCH (08:31)
[2017-02-11] MEDS: LEVOTHYROXINE SODIUM 50 MCG TABLET PO SCH (08:32)
[2017-02-11] MEDS ORDERED: CloZAPine 25 MG TABLET PO SCH ×2 (09:00→21:00)
[2017-02-11 19:20] VITALS: BP 114/75
[2017-02-11] MEDS: BENZTROPINE MESYLATE 2 MG TABLET PO SCH (20:18)
[2017-02-11] MEDS: QUEtiapine FUMARATE 200 MG TABLET PO SCH (20:18)
[2017-02-12] MEDS: QUEtiapine FUMARATE 100 MG TABLET PO PRN (08:10)
[2017-02-12] MEDS: LORazepam 2 MG TABLET PO PRN (08:10)
[2017-02-12] MEDS: LEVOTHYROXINE SODIUM 50 MCG TABLET PO SCH (08:12)
[2017-02-12] MEDS: PANTOPRAZOLE SODIUM 40 MG DR TABLET PO SCH (08:12)
[2017-02-12] MEDS: NITROFURANTOIN/NITROFURAN MAC 100 MG CAPSULE [MACROBID] PO SCH ×2 (08:12→17:13)
[2017-02-12 08:51] VITALS: BP 136/89
[2017-02-12] MEDS ORDERED: CloZAPine 25 MG TABLET PO SCH ×2 (09:00→21:00)
[2017-02-12 19:55] VITALS: BP 110/61
[2017-02-12] MEDS: BENZTROPINE MESYLATE 2 MG TABLET PO SCH (20:05)
[2017-02-12] MEDS: QUEtiapine FUMARATE 200 MG TABLET PO SCH (20:06)
[2017-02-13] MEDS: LEVOTHYROXINE SODIUM 50 MCG TABLET PO SCH (09:41)
[2017-02-13] MEDS: PANTOPRAZOLE SODIUM 40 MG DR TABLET PO SCH (09:41)
[2017-02-13] MEDS: NITROFURANTOIN/NITROFURAN MAC 100 MG CAPSULE [MACROBID] PO SCH ×2 (09:41→17:07)
[2017-02-13] MEDS: CloZAPine 25 MG TABLET PO SCH ×2 (09:42→20:32)
[2017-02-13 09:54] VITALS: BP 127/86
[2017-02-13 17:08] VITALS: BP 156/71
[2017-02-13] MEDS: QUEtiapine FUMARATE 100 MG TABLET PO PRN (19:32)
[2017-02-13] MEDS: QUEtiapine FUMARATE 200 MG TABLET PO SCH (20:33)
[2017-02-13] MEDS: BENZTROPINE MESYLATE 2 MG TABLET PO SCH (20:33)
[2017-02-14 02:00] VITALS: BP 125/83
[2017-02-14] MEDS: LEVOTHYROXINE SODIUM 50 MCG TABLET PO SCH (07:58)
[2017-02-14] MEDS: CloZAPine 25 MG TABLET PO SCH ×2 (07:58→21:13)
[2017-02-14] MEDS: NITROFURANTOIN/NITROFURAN MAC 100 MG CAPSULE [MACROBID] PO SCH ×2 (07:58→16:20)
[2017-02-14] MEDS: PANTOPRAZOLE SODIUM 40 MG DR TABLET PO SCH (07:58)
[2017-02-14 08:05] VITALS: BP 137/84
[2017-02-14] MEDS: LORazepam 2 MG TABLET PO PRN ×2 (11:07→22:04)
[2017-02-14 16:29] VITALS: BP 117/76
[2017-02-14] MEDS: QUEtiapine FUMARATE 200 MG TABLET PO SCH (21:13)
[2017-02-14] MEDS: BENZTROPINE MESYLATE 2 MG TABLET PO SCH (21:13)
[2017-02-15 05:05] VITALS: BP 100/69
[2017-02-15 08:05] VITALS: BP 121/70
[2017-02-15] MEDS: PANTOPRAZOLE SODIUM 40 MG DR TABLET PO SCH (08:53)
[2017-02-15] MEDS: LEVOTHYROXINE SODIUM 50 MCG TABLET PO SCH (08:53)
[2017-02-15] MEDS: NITROFURANTOIN/NITROFURAN MAC 100 MG CAPSULE [MACROBID] PO SCH (08:53)
[2017-02-15] MEDS ORDERED: CloZAPine 25 MG TABLET PO SCH (09:00)
[2017-02-15 16:59] VITALS: BP 128/68
[2017-02-15] MEDS: BENZTROPINE MESYLATE 2 MG TABLET PO SCH (20:34)
[2017-02-15] MEDS: QUEtiapine FUMARATE 200 MG TABLET PO SCH (20:34)
[2017-02-15] MEDS ORDERED: CloZAPine 100 MG TABLET PO SCH (21:00)
[2017-02-16 07:06] VITALS: BP 120/78
[2017-02-16 08:01] VITALS: BP 151/85
[2017-02-16] MEDS: PANTOPRAZOLE SODIUM 40 MG DR TABLET PO SCH (08:14)
[2017-02-16] MEDS: LEVOTHYROXINE SODIUM 50 MCG TABLET PO SCH (08:14)
[2017-02-16] MEDS: LORazepam 2 MG TABLET PO PRN (08:54)
[2017-02-16] MEDS ORDERED: CloZAPine 25 MG TABLET PO SCH (09:00)
[2017-02-16 16:33] VITALS: BP 124/66
[2017-02-16] MEDS: QUEtiapine FUMARATE 200 MG TABLET PO SCH (20:14)
[2017-02-16] MEDS: BENZTROPINE MESYLATE 2 MG TABLET PO SCH (20:14)
[2017-02-16] MEDS ORDERED: CloZAPine 100 MG TABLET PO SCH (21:00)
[2017-02-17 06:38] VITALS: BP 126/75
[2017-02-17 06:44] LABS: BASOPHILS # (AUTO) 0.07 K/uL (0.00-0.20); BASOPHILS % (AUTO) 0.7 % (0.0-2.0); EOSINOPHILS # (AUTO) 0.42 K/uL (0.00-0.70); EOSINOPHILS % (AUTO) 4.02 % (1.0-6.0); HEMATOCRIT 38.5 % (36-46); HEMOGLOBIN 12.7 g/dL (12.0-16.0); LYMPHOCYTES # (AUTO) 4.2 K/uL (1.0-4.8); LYMPHOCYTES % (AUTO) 40.3 % (22.0-44.0); MEAN CORPUSCULAR HEMOGLOBIN 29.3 pg (26.0-34.0); MEAN CORPUSCULAR HGB CONC 32.9 G/dL (31.0-37.0); MEAN CORPUSCULAR VOLUME 89 fL (80-100); MONOCYTES # (AUTO) 0.8 K/uL (0.1-1.0); MONOCYTES % (AUTO) 7.8 % (2.0-9.0); NEUTROPHILS % (AUTO) 47.3 % (40.0-70.0); PLATELET COUNT (AUTO) 320 K/uL (150-450); RED BLOOD CELL COUNT(AUTO) 4.33 MIL/uL (4.00-5.20); RED CELL DISTRIBUTION WIDTH 15.1 % (11.5-14.5); WHITE BLOOD COUNT (AUTO) 10.5 K/uL (4.5-11.0)
[2017-02-17 08:01] VITALS: BP 117/70
[2017-02-17] MEDS: PANTOPRAZOLE SODIUM 40 MG DR TABLET PO SCH (08:16)
[2017-02-17] MEDS: LEVOTHYROXINE SODIUM 50 MCG TABLET PO SCH (08:16)
[2017-02-17] MEDS ORDERED: CloZAPine 25 MG TABLET PO SCH (09:00)
[2017-02-17 16:36] VITALS: BP 135/79
[2017-02-17] MEDS: QUEtiapine FUMARATE 200 MG TABLET PO SCH (20:36)
[2017-02-17] MEDS: BENZTROPINE MESYLATE 2 MG TABLET PO SCH (20:36)
[2017-02-17] MEDS ORDERED: CloZAPine 100 MG TABLET PO SCH (21:00)
[2017-02-18] MEDS: LEVOTHYROXINE SODIUM 50 MCG TABLET PO SCH (08:19)
[2017-02-18] MEDS: PANTOPRAZOLE SODIUM 40 MG DR TABLET PO SCH (08:19)
[2017-02-18] MEDS: CloZAPine 100 MG TABLET PO SCH ×2 (08:19→20:04)
[2017-02-18] MEDS: QUEtiapine FUMARATE 100 MG TABLET PO PRN (08:20)
[2017-02-18 08:42] VITALS: BP 131/77
[2017-02-18 16:11] VITALS: BP 142/74
[2017-02-18] MEDS: QUEtiapine FUMARATE 200 MG TABLET PO SCH (20:04)
[2017-02-18] MEDS: BENZTROPINE MESYLATE 2 MG TABLET PO SCH (20:04)
[2017-02-19 03:05] VITALS: BP 135/68
[2017-02-19 08:01] VITALS: BP 139/89
[2017-02-19] MEDS: PANTOPRAZOLE SODIUM 40 MG DR TABLET PO SCH (08:22)
[2017-02-19] MEDS: CloZAPine 100 MG TABLET PO SCH ×2 (08:22→20:29)
[2017-02-19] MEDS: LEVOTHYROXINE SODIUM 50 MCG TABLET PO SCH (08:22)
[2017-02-19 16:56] VITALS: BP 131/84
[2017-02-19] MEDS: BENZTROPINE MESYLATE 2 MG TABLET PO SCH (20:29)
[2017-02-19] MEDS: QUEtiapine FUMARATE 200 MG TABLET PO SCH (20:30)
[2017-02-20] MEDS: LORazepam 2 MG TABLET PO PRN ×2 (02:05→14:04)
[2017-02-20 02:08] VITALS: BP 118/71
[2017-02-20 08:30] VITALS: BP 112/72
[2017-02-20] MEDS: PANTOPRAZOLE SODIUM 40 MG DR TABLET PO SCH (08:46)
[2017-02-20] MEDS: LEVOTHYROXINE SODIUM 50 MCG TABLET PO SCH (08:46)
[2017-02-20] MEDS ORDERED: CloZAPine 25 MG TABLET PO SCH (09:00)
[2017-02-20] MEDS: QUEtiapine FUMARATE 100 MG TABLET PO PRN (16:40)
[2017-02-20 16:46] VITALS: BP 118/73
[2017-02-20] MEDS: QUEtiapine FUMARATE 200 MG TABLET PO SCH (20:20)
[2017-02-20] MEDS: BENZTROPINE MESYLATE 2 MG TABLET PO SCH (20:20)
[2017-02-20] MEDS ORDERED: CloZAPine 100 MG TABLET PO SCH (21:00)
[2017-02-21 07:54] LABS: CHOL/HDL RATIO 4.9 (3.9-5.7)
[2017-02-21 08:16] VITALS: BP 131/78
[2017-02-21] MEDS: PANTOPRAZOLE SODIUM 40 MG DR TABLET PO SCH (08:33)
[2017-02-21] MEDS: QUEtiapine FUMARATE 100 MG TABLET PO PRN (08:33)
[2017-02-21] MEDS: LEVOTHYROXINE SODIUM 50 MCG TABLET PO SCH (08:33)
[2017-02-21] MEDS ORDERED: CloZAPine 25 MG TABLET PO SCH (09:00)
[2017-02-21 16:20] VITALS: BP 116/68
[2017-02-21] MEDS: QUEtiapine FUMARATE 200 MG TABLET PO SCH (20:18)
[2017-02-21] MEDS: BENZTROPINE MESYLATE 2 MG TABLET PO SCH (20:18)
[2017-02-21] MEDS ORDERED: CloZAPine 100 MG TABLET PO SCH (21:00)
[2017-02-22 00:34] VITALS: BP 121/73
[2017-02-22] MEDS: PANTOPRAZOLE SODIUM 40 MG DR TABLET PO SCH (07:54)
[2017-02-22] MEDS: CloZAPine 100 MG TABLET PO SCH ×2 (07:54→20:33)
[2017-02-22] MEDS: LEVOTHYROXINE SODIUM 50 MCG TABLET PO SCH (07:54)
[2017-02-22 08:16] VITALS: BP 102/67
[2017-02-22 18:39] VITALS: BP 126/71
[2017-02-22] MEDS: QUEtiapine FUMARATE 200 MG TABLET PO SCH (20:33)
[2017-02-22] MEDS: BENZTROPINE MESYLATE 2 MG TABLET PO SCH (20:34)
[2017-02-23 02:23] VITALS: BP 100/71
[2017-02-23 08:16] VITALS: BP 134/83
[2017-02-23] MEDS: CloZAPine 100 MG TABLET PO SCH ×2 (08:27→21:04)
[2017-02-23] MEDS: LEVOTHYROXINE SODIUM 50 MCG TABLET PO SCH (08:27)
[2017-02-23] MEDS: PANTOPRAZOLE SODIUM 40 MG DR TABLET PO SCH (08:27)
[2017-02-23] MEDS: LORazepam 2 MG TABLET PO PRN (09:34)
[2017-02-23] MEDS: QUEtiapine FUMARATE 100 MG TABLET PO PRN (09:34)
[2017-02-23 16:50] VITALS: BP 136/90
[2017-02-23] MEDS: BENZTROPINE MESYLATE 2 MG TABLET PO SCH (21:04)
[2017-02-23] MEDS: QUEtiapine FUMARATE 200 MG TABLET PO SCH (21:05)
[2017-02-24 06:35] LABS: BASOPHILS # (AUTO) 0.05 K/uL (0.00-0.20); BASOPHILS % (AUTO) 0.5 % (0.0-2.0); EOSINOPHILS # (AUTO) 0.47 K/uL (0.00-0.70); EOSINOPHILS % (AUTO) 4.39 % (1.0-6.0); HEMATOCRIT 40.5 % (36-46); HEMOGLOBIN 13.3 g/dL (12.0-16.0); LYMPHOCYTES # (AUTO) 4.2 K/uL (1.0-4.8); LYMPHOCYTES % (AUTO) 39.3 % (22.0-44.0); MEAN CORPUSCULAR HEMOGLOBIN 28.9 pg (26.0-34.0); MEAN CORPUSCULAR HGB CONC 32.7 G/dL (31.0-37.0); MEAN CORPUSCULAR VOLUME 89 fL (80-100); MONOCYTES # (AUTO) 0.8 K/uL (0.1-1.0); MONOCYTES % (AUTO) 7.9 % (2.0-9.0); NEUTROPHILS # (AUTO) 5.1 K/uL (1.8-7.7); PLATELET COUNT (AUTO) 337 K/uL (150-450); RED BLOOD CELL COUNT(AUTO) 4.58 MIL/uL (4.00-5.20); RED CELL DISTRIBUTION WIDTH 14.9 % (11.5-14.5); WHITE BLOOD COUNT (AUTO) 10.7 K/uL (4.5-11.0)
[2017-02-24 08:30] VITALS: BP 133/78
[2017-02-24] MEDS: CloZAPine 100 MG TABLET PO SCH ×2 (09:04→21:04)
[2017-02-24] MEDS: LEVOTHYROXINE SODIUM 50 MCG TABLET PO SCH (09:04)
[2017-02-24] MEDS: PANTOPRAZOLE SODIUM 40 MG DR TABLET PO SCH (09:05)
[2017-02-24 16:33] VITALS: BP 115/63
[2017-02-24] MEDS: BENZTROPINE MESYLATE 2 MG TABLET PO SCH (21:04)
[2017-02-24] MEDS: QUEtiapine FUMARATE 200 MG TABLET PO SCH (21:04)
[2017-02-25 03:44] VITALS: BP 114/70
[2017-02-25] MEDS: LEVOTHYROXINE SODIUM 50 MCG TABLET PO SCH (08:27)
[2017-02-25] MEDS: CloZAPine 100 MG TABLET PO SCH ×2 (08:28→20:42)
[2017-02-25] MEDS: PANTOPRAZOLE SODIUM 40 MG DR TABLET PO SCH (08:28)
[2017-02-25 08:30] VITALS: BP 138/73
[2017-02-25] MEDS: LORazepam 2 MG TABLET PO PRN (16:09)
[2017-02-25] MEDS: QUEtiapine FUMARATE 100 MG TABLET PO PRN (16:09)
[2017-02-25 16:18] VITALS: BP 113/79
[2017-02-25] MEDS: BENZTROPINE MESYLATE 2 MG TABLET PO SCH (20:42)
[2017-02-25] MEDS: QUEtiapine FUMARATE 200 MG TABLET PO SCH (20:42)
[2017-02-26] MEDS: CloZAPine 100 MG TABLET PO SCH ×2 (08:16→20:29)
[2017-02-26] MEDS: PANTOPRAZOLE SODIUM 40 MG DR TABLET PO SCH (08:16)
[2017-02-26] MEDS: LEVOTHYROXINE SODIUM 50 MCG TABLET PO SCH (08:16)
[2017-02-26 08:30] VITALS: BP 108/66
[2017-02-26 16:44] VITALS: BP 108/79
[2017-02-26] MEDS: QUEtiapine FUMARATE 200 MG TABLET PO SCH (20:29)
[2017-02-26] MEDS: BENZTROPINE MESYLATE 2 MG TABLET PO SCH (20:30)
[2017-02-27 08:45] VITALS: BP 132/83
[2017-02-27] MEDS: PANTOPRAZOLE SODIUM 40 MG DR TABLET PO SCH (09:02)
[2017-02-27] MEDS: LEVOTHYROXINE SODIUM 50 MCG TABLET PO SCH (09:02)
[2017-02-27] MEDS: CloZAPine 100 MG TABLET PO SCH (09:02)
[2017-02-27] MEDS ORDERED: CLOZ100 PO (11:53)
[2017-02-27] MEDS ORDERED: QUET200T PO (11:54)
== END 2017-02-27 14:15 | disposition home or self-care (01) | DRG 885 ==
LOC: EMS 16:09 → 3EX 21:14
PROVIDERS: ADMIT Psychiatry & Neurology Psychiatry; ATTEND Psychiatry & Neurology Psychiatry
DX: F20.9 Schizophrenia, unspecified (principal); R45.851 Suicidal ideations; N39.0 Urinary tract infection, site not specified; F25.9 Schizoaffective disorder, unspecified; K21.9 Gastro-esophageal reflux disease without esophagitis; J44.9 Chronic obstructive pulmonary disease, unspecified; I10 Essential (primary) hypertension; E78.00 Pure hypercholesterolemia, unspecified; F32.9 Major depressive disorder, single episode, unspecified; E11.9 Type 2 diabetes mellitus without complications; E03.9 Hypothyroidism, unspecified; F41.9 Anxiety disorder, unspecified; G47.00 Insomnia, unspecified; F60.9 Personality disorder, unspecified; Z87.81 Personal history of (healed) traumatic fracture; Z90.49 Acquired absence of other specified parts of digestive tract; Z79.899 Other long term (current) drug therapy; Z63.5 Disruption of family by separation and divorce
CPT/HCPCS: 87081; 87086; 99285; G0480

== ENCOUNTER 2017-04-04 11:29 | Inpatient (IN) | payer MEDICARE ==
[~2017-04-04] VITALS: Ht 167.6 cm; Wt 98.4 kg
[~2017-04-04 11:29] MED LIST changes: -PREM625 PO
[2017-04-04] MEDS ORDERED: PNEUMOCOCCAL VACCINE POLYVALENT 0.5 ML VIAL [PPSV23] IM ONE (13:15)
[2017-04-04 13:20] VITALS: BP 120/60
[2017-04-04 16:12] VITALS: BP 125/61
[2017-04-04] MEDS: QUEtiapine FUMARATE 200 MG TABLET PO SCH (20:35)
[2017-04-04] MEDS: BENZTROPINE MESYLATE 2 MG TABLET PO SCH (20:36)
[2017-04-04] MEDS ORDERED: CloZAPine 100 MG TABLET PO ONE (21:00)
[2017-04-05 04:43] VITALS: BP 100/60
[2017-04-05] MEDS: LEVOTHYROXINE SODIUM 50 MCG TABLET PO SCH (05:40)
[2017-04-05 08:31] VITALS: BP 106/58
[2017-04-05 08:45] LABS: ALBUMIN 3.3 g/dL (3.4-5.0); BILIRUBIN,TOTAL 0.3 mg/dL (0.1-1.0); CALCIUM, TOTAL 9.3 mg/dL (8.8-10.5); CREATININE 0.95 mg/dL (0.60-1.30); POTASSIUM 3.8 mmol/L (3.5-5.1); TOTAL PROTEIN, SERUM 6.9 g/dL (6.4-8.2)
[2017-04-05 08:47] LABS: BASOPHILS % (AUTO) 0.6 % (0.0-2.0); EOSINOPHILS % (AUTO) 3.7 % (1.0-6.0); HEMATOCRIT 40.5 % (36-46); HEMOGLOBIN 13.5 g/dL (12.0-16.0); LYMPHOCYTES # (AUTO) 3.9 K/uL (1.0-4.8); LYMPHOCYTES % (AUTO) 39.9 % (22.0-44.0); MEAN CORPUSCULAR HEMOGLOBIN 29.3 pg (26.0-34.0); MEAN CORPUSCULAR HGB CONC 33.4 G/dL (31.0-37.0); MEAN CORPUSCULAR VOLUME 88 fL (80-100); MONOCYTES # (AUTO) 0.7 K/uL (0.1-1.0); MONOCYTES % (AUTO) 7.6 % (2.0-9.0); NEUTROPHILS # (AUTO) 4.7 K/uL (1.8-7.7); NEUTROPHILS % (AUTO) 48.2 % (40.0-70.0); PLATELET COUNT (AUTO) 328 K/uL (150-450); RED BLOOD CELL COUNT(AUTO) 4.61 MIL/uL (4.00-5.20); RED CELL DISTRIBUTION WIDTH 14.5 % (11.5-14.5); WHITE BLOOD COUNT (AUTO) 9.9 K/uL (4.5-11.0)
[2017-04-05] MEDS: PANTOPRAZOLE SODIUM 40 MG DR TABLET PO SCH (09:10)
[2017-04-05] MEDS: MOMETASONE FUROATE 50 MCG/SPRAY 17 GM NASAL SPRAY NASAL SCH (09:10)
[2017-04-05] MEDS: CloZAPine 100 MG TABLET PO SCH ×2 (12:09→20:42)
[2017-04-05 16:18] VITALS: BP 113/83
[2017-04-05] MEDS: BENZTROPINE MESYLATE 2 MG TABLET PO SCH (20:42)
[2017-04-05] MEDS: QUEtiapine FUMARATE 200 MG TABLET PO SCH (20:42)
[2017-04-06 06:45] VITALS: BP 102/58
[2017-04-06] MEDS: LEVOTHYROXINE SODIUM 50 MCG TABLET PO SCH (07:30)
[2017-04-06] MEDS: PANTOPRAZOLE SODIUM 40 MG DR TABLET PO SCH (08:44)
[2017-04-06] MEDS: MOMETASONE FUROATE 50 MCG/SPRAY 17 GM NASAL SPRAY NASAL SCH (08:44)
[2017-04-06] MEDS: CloZAPine 100 MG TABLET PO SCH ×2 (08:44→20:50)
[2017-04-06 08:53] VITALS: BP 121/83
[2017-04-06 16:11] VITALS: BP 124/84
[2017-04-06] MEDS: QUEtiapine FUMARATE 200 MG TABLET PO SCH (20:50)
[2017-04-06] MEDS: BENZTROPINE MESYLATE 2 MG TABLET PO SCH (20:50)
[2017-04-07 00:09] VITALS: BP 113/73
[2017-04-07] MEDS: LEVOTHYROXINE SODIUM 50 MCG TABLET PO SCH (06:53)
[2017-04-07] MEDS: MOMETASONE FUROATE 50 MCG/SPRAY 17 GM NASAL SPRAY NASAL SCH (08:17)
[2017-04-07] MEDS: PANTOPRAZOLE SODIUM 40 MG DR TABLET PO SCH (08:17)
[2017-04-07] MEDS: CloZAPine 100 MG TABLET PO SCH ×2 (08:17→20:02)
[2017-04-07 08:22] VITALS: BP 119/70
[2017-04-07 16:35] VITALS: BP 110/64
[2017-04-07] MEDS: BENZTROPINE MESYLATE 2 MG TABLET PO SCH (20:02)
[2017-04-07] MEDS: QUEtiapine FUMARATE 200 MG TABLET PO SCH (20:02)
[2017-04-08 00:09] VITALS: BP 110/68
[2017-04-08] MEDS: LEVOTHYROXINE SODIUM 50 MCG TABLET PO SCH (06:30)
[2017-04-08] MEDS: PANTOPRAZOLE SODIUM 40 MG DR TABLET PO SCH (08:20)
[2017-04-08] MEDS: CloZAPine 100 MG TABLET PO SCH ×2 (08:20→20:34)
[2017-04-08] MEDS: MOMETASONE FUROATE 50 MCG/SPRAY 17 GM NASAL SPRAY NASAL SCH (08:21)
[2017-04-08 08:39] VITALS: BP 120/71
[2017-04-08 16:11] VITALS: BP 106/74
[2017-04-08] MEDS: BENZTROPINE MESYLATE 2 MG TABLET PO SCH (20:33)
[2017-04-08] MEDS: QUEtiapine FUMARATE 200 MG TABLET PO SCH (20:34)
[2017-04-09 00:56] VITALS: BP 123/60
[2017-04-09] MEDS: LEVOTHYROXINE SODIUM 50 MCG TABLET PO SCH (06:44)
[2017-04-09 08:16] VITALS: BP 104/69
[2017-04-09] MEDS: MOMETASONE FUROATE 50 MCG/SPRAY 17 GM NASAL SPRAY NASAL SCH (08:49)
[2017-04-09] MEDS: PANTOPRAZOLE SODIUM 40 MG DR TABLET PO SCH (08:49)
[2017-04-09] MEDS: CloZAPine 100 MG TABLET PO SCH ×2 (08:49→20:08)
[2017-04-09 16:00] VITALS: BP 106/63
[2017-04-09] MEDS: QUEtiapine FUMARATE 200 MG TABLET PO SCH (20:07)
[2017-04-09] MEDS: BENZTROPINE MESYLATE 2 MG TABLET PO SCH (20:08)
[2017-04-10 00:10] VITALS: BP 118/66
[2017-04-10] MEDS: LEVOTHYROXINE SODIUM 50 MCG TABLET PO SCH (05:33)
[2017-04-10] MEDS: MOMETASONE FUROATE 50 MCG/SPRAY 17 GM NASAL SPRAY NASAL SCH (08:13)
[2017-04-10] MEDS: PANTOPRAZOLE SODIUM 40 MG DR TABLET PO SCH (08:14)
[2017-04-10] MEDS: CloZAPine 100 MG TABLET PO SCH ×2 (08:14→20:07)
[2017-04-10 08:48] VITALS: BP 114/47
[2017-04-10 16:08] VITALS: BP 115/69
[2017-04-10] MEDS: QUEtiapine FUMARATE 200 MG TABLET PO SCH (20:07)
[2017-04-10] MEDS: BENZTROPINE MESYLATE 2 MG TABLET PO SCH (20:07)
[2017-04-11 02:10] VITALS: BP 114/64
[2017-04-11] MEDS: LEVOTHYROXINE SODIUM 50 MCG TABLET PO SCH (06:47)
[2017-04-11] MEDS: PANTOPRAZOLE SODIUM 40 MG DR TABLET PO SCH (08:11)
[2017-04-11] MEDS: CloZAPine 100 MG TABLET PO SCH ×2 (08:11→20:16)
[2017-04-11] MEDS: MOMETASONE FUROATE 50 MCG/SPRAY 17 GM NASAL SPRAY NASAL SCH (08:11)
[2017-04-11 08:46] VITALS: BP 109/63
[2017-04-11 16:08] VITALS: BP 107/66
[2017-04-11] MEDS: BENZTROPINE MESYLATE 2 MG TABLET PO SCH (20:16)
[2017-04-11] MEDS: QUEtiapine FUMARATE 200 MG TABLET PO SCH (20:17)
[2017-04-12 06:14] VITALS: BP 105/64
[2017-04-12] MEDS: LEVOTHYROXINE SODIUM 50 MCG TABLET PO SCH (06:51)
[2017-04-12 08:37] LABS: BASOPHILS # (AUTO) 0.06 K/uL (0.00-0.20); BASOPHILS % (AUTO) 0.7 % (0.0-2.0); EOSINOPHILS # (AUTO) 0.39 K/uL (0.00-0.70); EOSINOPHILS % (AUTO) 4.31 % (1.0-6.0); HEMATOCRIT 38.3 % (36-46); HEMOGLOBIN 12.5 g/dL (12.0-16.0); LYMPHOCYTES # (AUTO) 3.4 K/uL (1.0-4.8); LYMPHOCYTES % (AUTO) 36.9 % (22.0-44.0); MEAN CORPUSCULAR HEMOGLOBIN 28.8 pg (26.0-34.0); MEAN CORPUSCULAR HGB CONC 32.6 G/dL (31.0-37.0); MEAN CORPUSCULAR VOLUME 88 fL (80-100); MONOCYTES # (AUTO) 0.8 K/uL (0.1-1.0); MONOCYTES % (AUTO) 8.4 % (2.0-9.0); NEUTROPHILS # (AUTO) 4.5 K/uL (1.8-7.7); NEUTROPHILS % (AUTO) 49.7 % (40.0-70.0); PLATELET COUNT (AUTO) 324 K/uL (150-450); RED BLOOD CELL COUNT(AUTO) 4.33 MIL/uL (4.00-5.20); RED CELL DISTRIBUTION WIDTH 14.6 % (11.5-14.5); WHITE BLOOD COUNT (AUTO) 9.1 K/uL (4.5-11.0)
[2017-04-12] MEDS: PANTOPRAZOLE SODIUM 40 MG DR TABLET PO SCH (08:59)
[2017-04-12] MEDS: CloZAPine 100 MG TABLET PO SCH ×2 (08:59→20:08)
[2017-04-12] MEDS: MOMETASONE FUROATE 50 MCG/SPRAY 17 GM NASAL SPRAY NASAL SCH (08:59)
[2017-04-12 09:16] VITALS: BP_SYST 112; BP_SYST 122; BP_DIAS 82; BP_DIAS 86
[2017-04-12 16:10] VITALS: BP 133/83
[2017-04-12] MEDS: QUEtiapine FUMARATE 200 MG TABLET PO SCH (20:07)
[2017-04-12] MEDS: BENZTROPINE MESYLATE 2 MG TABLET PO SCH (20:07)
[2017-04-13] MEDS: LEVOTHYROXINE SODIUM 50 MCG TABLET PO SCH (05:52)
[2017-04-13 06:21] VITALS: BP 124/65
[2017-04-13 08:37] VITALS: BP 110/67
[2017-04-13] MEDS: MOMETASONE FUROATE 50 MCG/SPRAY 17 GM NASAL SPRAY NASAL SCH (08:47)
[2017-04-13] MEDS: CloZAPine 100 MG TABLET PO SCH (08:47)
[2017-04-13] MEDS: PANTOPRAZOLE SODIUM 40 MG DR TABLET PO SCH (08:47)
== END 2017-04-13 10:00 | disposition home or self-care (01) | DRG 885 ==
LOC: B2X 11:48
PROVIDERS: ADMIT Psychiatry & Neurology Psychiatry; ATTEND Psychiatry & Neurology Psychiatry
DX: F20.0 Paranoid schizophrenia (principal); J44.9 Chronic obstructive pulmonary disease, unspecified; K21.9 Gastro-esophageal reflux disease without esophagitis; N95.1 Menopausal and female climacteric states; J32.9 Chronic sinusitis, unspecified; E03.9 Hypothyroidism, unspecified; Z79.899 Other long term (current) drug therapy; Z28.21 Immunization not carried out because of patient refusal
CPT/HCPCS: 84436; 84439; 90471

== ENCOUNTER 2017-08-08 11:01 | Inpatient (IN) | payer MEDICARE ==
[~2017-08-08] VITALS: Ht 167.6 cm; Wt 93.2 kg
[~2017-08-08 11:01] MED LIST changes: -LEVO50 PO; -PANT40TA25 PO; -QUET200T PO
[2017-08-08] MEDS ORDERED: ZOLPIDEM TARTRATE 10 MG TABLET PO PRN (11:30)
[2017-08-08] MEDS ORDERED: LORazepam 2 MG TABLET PO PRN (11:30)
[2017-08-08] MEDS ORDERED: INFLUENZA VIRUS VACCINE QVS 2017-18 (3YR+)/PF 60 MCG/0.5 ML SYRINGE IM ONE (14:45)
[2017-08-08 15:04] VITALS: BP 115/68
[2017-08-08 15:38] LABS: BASOPHILS % (AUTO) 0.5 % (0.0-2.0); EOSINOPHILS % (AUTO) 2.6 % (1.0-6.0); HEMATOCRIT 38.2 % (36-46); HEMOGLOBIN 12.8 g/dL (12.0-16.0); LYMPHOCYTES # (AUTO) 3.2 K/uL (1.0-4.8); LYMPHOCYTES % (AUTO) 33.4 % (22.0-44.0); MEAN CORPUSCULAR HEMOGLOBIN 29.3 pg (26.0-34.0); MEAN CORPUSCULAR HGB CONC 33.6 G/dL (31.0-37.0); MEAN CORPUSCULAR VOLUME 87 fL (80-100); MONOCYTES # (AUTO) 0.8 K/uL (0.1-1.0); MONOCYTES % (AUTO) 7.9 % (2.0-9.0); NEUTROPHILS # (AUTO) 5.3 K/uL (1.8-7.7); NEUTROPHILS % (AUTO) 55.6 % (40.0-70.0); PLATELET COUNT (AUTO) 308 K/uL (150-450); RED BLOOD CELL COUNT(AUTO) 4.38 MIL/uL (4.00-5.20); RED CELL DISTRIBUTION WIDTH 14.8 % (11.5-14.5); WHITE BLOOD COUNT (AUTO) 9.6 K/uL (4.5-11.0)
[2017-08-08 16:06] VITALS: BP 105/62
[2017-08-08] MEDS: BENZTROPINE MESYLATE 2 MG TABLET PO SCH (20:54)
[2017-08-08] MEDS ORDERED: CloZAPine 100 MG TABLET PO ONE (21:00)
[2017-08-09] MEDS ORDERED: PNEUMOCOCCAL VACCINE POLYVALENT 0.5 ML VIAL [PPSV23] IM ONE (04:30)
[2017-08-09 06:11] VITALS: BP 108/61
[2017-08-09] MEDS: LEVOTHYROXINE SODIUM 50 MCG TABLET PO SCH (06:44)
[2017-08-09 07:58] LABS: BASOPHILS % (AUTO) 0.5 % (0.0-2.0); EOSINOPHILS % (AUTO) 4.6 % (1.0-6.0); HEMATOCRIT 36.4 % (36-46); HEMOGLOBIN 12.1 g/dL (12.0-16.0); LYMPHOCYTES # (AUTO) 3.2 K/uL (1.0-4.8); LYMPHOCYTES % (AUTO) 38.3 % (22.0-44.0); MEAN CORPUSCULAR HEMOGLOBIN 29.1 pg (26.0-34.0); MEAN CORPUSCULAR HGB CONC 33.2 G/dL (31.0-37.0); MEAN CORPUSCULAR VOLUME 88 fL (80-100); MONOCYTES # (AUTO) 0.6 K/uL (0.1-1.0); MONOCYTES % (AUTO) 7.6 % (2.0-9.0); PLATELET COUNT (AUTO) 281 K/uL (150-450); RED BLOOD CELL COUNT(AUTO) 4.16 MIL/uL (4.00-5.20); RED CELL DISTRIBUTION WIDTH 15.1 % (11.5-14.5); WHITE BLOOD COUNT (AUTO) 8.3 K/uL (4.5-11.0)
[2017-08-09 08:25] VITALS: BP 103/62
[2017-08-09] MEDS: PANTOPRAZOLE SODIUM 40 MG DR TABLET PO SCH (08:51)
[2017-08-09] MEDS: ESTROGENS,CONJUGATED 0.625 MG TABLET PO SCH (08:51)
[2017-08-09] MEDS: CloZAPine 100 MG TABLET PO SCH ×2 (12:13→20:52)
[2017-08-09] MEDS: HALOPERIDOL 5 MG TABLET PO PRN (16:10)
[2017-08-09 16:12] VITALS: BP 120/74
[2017-08-09] MEDS: BENZTROPINE MESYLATE 2 MG TABLET PO SCH (20:51)
[2017-08-10 00:17] VITALS: BP 106/63
[2017-08-10] MEDS: LEVOTHYROXINE SODIUM 50 MCG TABLET PO SCH (06:37)
[2017-08-10] MEDS: PANTOPRAZOLE SODIUM 40 MG DR TABLET PO SCH (08:13)
[2017-08-10] MEDS: CloZAPine 100 MG TABLET PO SCH ×2 (08:13→20:33)
[2017-08-10] MEDS: ESTROGENS,CONJUGATED 0.625 MG TABLET PO SCH (08:13)
[2017-08-10 08:19] VITALS: BP 102/72
[2017-08-10 16:07] VITALS: BP 110/63
[2017-08-10] MEDS: BENZTROPINE MESYLATE 2 MG TABLET PO SCH (20:32)
[2017-08-11 01:01] VITALS: BP 119/60
[2017-08-11] MEDS: HALOPERIDOL 5 MG TABLET PO PRN (03:15)
[2017-08-11] MEDS: LEVOTHYROXINE SODIUM 50 MCG TABLET PO SCH (06:11)
[2017-08-11] MEDS: CloZAPine 100 MG TABLET PO SCH ×2 (08:25→20:07)
[2017-08-11] MEDS: ESTROGENS,CONJUGATED 0.625 MG TABLET PO SCH (08:25)
[2017-08-11] MEDS: PANTOPRAZOLE SODIUM 40 MG DR TABLET PO SCH (08:25)
[2017-08-11 08:41] VITALS: BP 101/73
[2017-08-11 16:12] VITALS: BP 124/66
[2017-08-11] MEDS: BENZTROPINE MESYLATE 2 MG TABLET PO SCH (20:07)
[2017-08-12 01:50] VITALS: BP 107/61
[2017-08-12] MEDS: LEVOTHYROXINE SODIUM 50 MCG TABLET PO SCH (06:32)
[2017-08-12 08:00] VITALS: BP 119/74
[2017-08-12] MEDS: CloZAPine 100 MG TABLET PO SCH ×2 (08:40→20:20)
[2017-08-12] MEDS: ESTROGENS,CONJUGATED 0.625 MG TABLET PO SCH (08:40)
[2017-08-12] MEDS: PANTOPRAZOLE SODIUM 40 MG DR TABLET PO SCH (08:40)
[2017-08-12 16:21] VITALS: BP 119/67
[2017-08-12] MEDS: BENZTROPINE MESYLATE 2 MG TABLET PO SCH (20:20)
[2017-08-13 02:11] VITALS: BP 114/64
[2017-08-13] MEDS: LEVOTHYROXINE SODIUM 50 MCG TABLET PO SCH (06:08)
[2017-08-13 08:30] VITALS: BP 123/74
[2017-08-13] MEDS: ESTROGENS,CONJUGATED 0.625 MG TABLET PO SCH (08:32)
[2017-08-13] MEDS: PANTOPRAZOLE SODIUM 40 MG DR TABLET PO SCH (08:32)
[2017-08-13] MEDS: CloZAPine 100 MG TABLET PO SCH ×2 (08:32→20:21)
[2017-08-13 16:24] VITALS: BP 124/70
[2017-08-13] MEDS: BENZTROPINE MESYLATE 2 MG TABLET PO SCH (20:21)
[2017-08-14 00:30] VITALS: BP 116/60
[2017-08-14] MEDS: LEVOTHYROXINE SODIUM 50 MCG TABLET PO SCH (06:27)
[2017-08-14] MEDS: PANTOPRAZOLE SODIUM 40 MG DR TABLET PO SCH (08:44)
[2017-08-14] MEDS: ESTROGENS,CONJUGATED 0.625 MG TABLET PO SCH (08:44)
[2017-08-14] MEDS: CloZAPine 100 MG TABLET PO SCH ×2 (08:44→20:22)
[2017-08-14 09:13] VITALS: BP 105/71
[2017-08-14 16:26] VITALS: BP 123/69
[2017-08-14] MEDS: BENZTROPINE MESYLATE 2 MG TABLET PO SCH (20:22)
[2017-08-15 01:22] VITALS: BP 118/58
[2017-08-15] MEDS: LEVOTHYROXINE SODIUM 50 MCG TABLET PO SCH (06:32)
[2017-08-15 08:21] VITALS: BP 118/68
[2017-08-15] MEDS: PANTOPRAZOLE SODIUM 40 MG DR TABLET PO SCH (08:23)
[2017-08-15] MEDS: ESTROGENS,CONJUGATED 0.625 MG TABLET PO SCH (08:23)
[2017-08-15] MEDS: CloZAPine 100 MG TABLET PO SCH ×2 (08:23→20:11)
[2017-08-15 16:05] VITALS: BP 125/76
[2017-08-15] MEDS: BENZTROPINE MESYLATE 2 MG TABLET PO SCH (20:11)
[2017-08-16 00:50] VITALS: BP 122/60
[2017-08-16] MEDS: LEVOTHYROXINE SODIUM 50 MCG TABLET PO SCH (05:57)
[2017-08-16 08:11] VITALS: BP 91/53
[2017-08-16 08:18] LABS: BASOPHILS # (AUTO) 0.07 K/uL (0.00-0.20); BASOPHILS % (AUTO) 0.7 % (0.0-2.0); EOSINOPHILS # (AUTO) 0.57 K/uL (0.00-0.70); HEMATOCRIT 41.6 % (36-46); HEMOGLOBIN 13.5 g/dL (12.0-16.0); LYMPHOCYTES # (AUTO) 4.4 K/uL (1.0-4.8); LYMPHOCYTES % (AUTO) 42.4 % (22.0-44.0); MEAN CORPUSCULAR HEMOGLOBIN 29.1 pg (26.0-34.0); MEAN CORPUSCULAR HGB CONC 32.4 G/dL (31.0-37.0); MEAN CORPUSCULAR VOLUME 90 fL (80-100); MONOCYTES # (AUTO) 0.8 K/uL (0.1-1.0); MONOCYTES % (AUTO) 7.1 % (2.0-9.0); NEUTROPHILS # (AUTO) 4.7 K/uL (1.8-7.7); NEUTROPHILS % (AUTO) 44.4 % (40.0-70.0); PLATELET COUNT (AUTO) 316 K/uL (150-450); RED BLOOD CELL COUNT(AUTO) 4.63 MIL/uL (4.00-5.20); WHITE BLOOD COUNT (AUTO) 10.5 K/uL (4.5-11.0)
[2017-08-16] MEDS: ESTROGENS,CONJUGATED 0.625 MG TABLET PO SCH (08:19)
[2017-08-16] MEDS: CloZAPine 100 MG TABLET PO SCH ×2 (08:19→20:35)
[2017-08-16] MEDS: PANTOPRAZOLE SODIUM 40 MG DR TABLET PO SCH (08:19)
[2017-08-16 09:30] VITALS: BP 117/72
[2017-08-16 16:04] VITALS: BP 115/64
[2017-08-16] MEDS: BENZTROPINE MESYLATE 2 MG TABLET PO SCH (20:35)
[2017-08-17 00:58] VITALS: BP 108/56
[2017-08-17] MEDS: LEVOTHYROXINE SODIUM 50 MCG TABLET PO SCH (06:14)
[2017-08-17 08:04] VITALS: BP 107/60
[2017-08-17] MEDS: ESTROGENS,CONJUGATED 0.625 MG TABLET PO SCH (08:26)
[2017-08-17] MEDS: CloZAPine 100 MG TABLET PO SCH ×2 (08:26→20:36)
[2017-08-17] MEDS: PANTOPRAZOLE SODIUM 40 MG DR TABLET PO SCH (08:26)
[2017-08-17 16:13] VITALS: BP 119/61
[2017-08-17] MEDS: BENZTROPINE MESYLATE 2 MG TABLET PO SCH (20:35)
[2017-08-18 00:03] VITALS: BP 113/71
[2017-08-18] MEDS: LEVOTHYROXINE SODIUM 50 MCG TABLET PO SCH (06:56)
[2017-08-18] MEDS: ESTROGENS,CONJUGATED 0.625 MG TABLET PO SCH (08:44)
[2017-08-18] MEDS: PANTOPRAZOLE SODIUM 40 MG DR TABLET PO SCH (08:44)
[2017-08-18] MEDS: CloZAPine 100 MG TABLET PO SCH ×2 (08:44→20:18)
[2017-08-18 08:56] VITALS: BP 105/71
[2017-08-18 16:15] VITALS: BP 123/67
[2017-08-18] MEDS: BENZTROPINE MESYLATE 2 MG TABLET PO SCH (20:18)
[2017-08-19 01:33] VITALS: BP 113/72
[2017-08-19] MEDS: LEVOTHYROXINE SODIUM 50 MCG TABLET PO SCH (07:29)
[2017-08-19] MEDS: CloZAPine 100 MG TABLET PO SCH ×2 (08:25→20:23)
[2017-08-19] MEDS: ESTROGENS,CONJUGATED 0.625 MG TABLET PO SCH (08:25)
[2017-08-19] MEDS: PANTOPRAZOLE SODIUM 40 MG DR TABLET PO SCH (08:25)
[2017-08-19 08:43] VITALS: BP 108/60
[2017-08-19 16:03] VITALS: BP 120/65
[2017-08-19] MEDS: BENZTROPINE MESYLATE 2 MG TABLET PO SCH (20:23)
[2017-08-20 00:22] VITALS: BP 101/65
[2017-08-20] MEDS: LEVOTHYROXINE SODIUM 50 MCG TABLET PO SCH (06:33)
[2017-08-20] MEDS: ESTROGENS,CONJUGATED 0.625 MG TABLET PO SCH (08:33)
[2017-08-20] MEDS: CloZAPine 100 MG TABLET PO SCH ×2 (08:33→20:27)
[2017-08-20] MEDS: PANTOPRAZOLE SODIUM 40 MG DR TABLET PO SCH (08:37)
[2017-08-20 08:49] VITALS: BP 99/60
[2017-08-20 16:20] VITALS: BP 109/72
[2017-08-20] MEDS: BENZTROPINE MESYLATE 2 MG TABLET PO SCH (20:27)
[2017-08-21 02:25] VITALS: BP 109/68
[2017-08-21] MEDS: LEVOTHYROXINE SODIUM 50 MCG TABLET PO SCH (06:26)
[2017-08-21] MEDS: PANTOPRAZOLE SODIUM 40 MG DR TABLET PO SCH (09:00)
[2017-08-21] MEDS: CloZAPine 100 MG TABLET PO SCH ×2 (09:09→20:53)
[2017-08-21] MEDS: ESTROGENS,CONJUGATED 0.625 MG TABLET PO SCH (09:09)
[2017-08-21 09:34] VITALS: BP 98/60
[2017-08-21 16:09] VITALS: BP 113/60
[2017-08-21] MEDS: BENZTROPINE MESYLATE 2 MG TABLET PO SCH (20:53)
[2017-08-22 01:26] VITALS: BP 100/60
[2017-08-22] MEDS: LEVOTHYROXINE SODIUM 50 MCG TABLET PO SCH (06:57)
[2017-08-22 08:04] VITALS: BP 118/62
[2017-08-22] MEDS: ESTROGENS,CONJUGATED 0.625 MG TABLET PO SCH (08:23)
[2017-08-22] MEDS: CloZAPine 100 MG TABLET PO SCH ×2 (08:23→20:11)
[2017-08-22] MEDS: PANTOPRAZOLE SODIUM 40 MG DR TABLET PO SCH (08:46)
[2017-08-22 16:42] VITALS: BP 116/62
[2017-08-22] MEDS: BENZTROPINE MESYLATE 2 MG TABLET PO SCH (20:11)
[2017-08-23 00:07] VITALS: BP 114/64
[2017-08-23] MEDS: LEVOTHYROXINE SODIUM 50 MCG TABLET PO SCH (06:46)
[2017-08-23] MEDS ORDERED: LEVO50TA4 PO (08:04)
[2017-08-23] MEDS ORDERED: PREMC PO (08:04)
[2017-08-23] MEDS ORDERED: PANT20TA PO (08:04)
[2017-08-23] MEDS: CloZAPine 100 MG TABLET PO SCH (08:08)
[2017-08-23] MEDS: ESTROGENS,CONJUGATED 0.625 MG TABLET PO SCH (08:08)
[2017-08-23 08:30] VITALS: BP 114/68
[2017-08-23] MEDS: PANTOPRAZOLE SODIUM 40 MG DR TABLET PO SCH (08:40)
[2017-08-23 08:42] LABS: BASOPHILS % (AUTO) 0.6 % (0.0-2.0); EOSINOPHILS % (AUTO) 3.2 % (1.0-6.0); HEMATOCRIT 41.5 % (36-46); HEMOGLOBIN 13.7 g/dL (12.0-16.0); LYMPHOCYTES # (AUTO) 4.6 K/uL (1.0-4.8); LYMPHOCYTES % (AUTO) 43.3 % (22.0-44.0); MEAN CORPUSCULAR HEMOGLOBIN 29.4 pg (26.0-34.0); MEAN CORPUSCULAR VOLUME 89 fL (80-100); MONOCYTES # (AUTO) 0.7 K/uL (0.1-1.0); MONOCYTES % (AUTO) 6.8 % (2.0-9.0); NEUTROPHILS # (AUTO) 4.9 K/uL (1.8-7.7); NEUTROPHILS % (AUTO) 46.1 % (40.0-70.0); PLATELET COUNT (AUTO) 335 K/uL (150-450); RED BLOOD CELL COUNT(AUTO) 4.66 MIL/uL (4.00-5.20); RED CELL DISTRIBUTION WIDTH 14.8 % (11.5-14.5); WHITE BLOOD COUNT (AUTO) 10.6 K/uL (4.5-11.0)
== END 2017-08-23 09:15 | disposition home or self-care (01) | DRG 885 ==
LOC: B2X 11:43
PROVIDERS: ADMIT Psychiatry & Neurology Psychiatry; ATTEND Psychiatry & Neurology Psychiatry
DX: F20.0 Paranoid schizophrenia (principal); E03.9 Hypothyroidism, unspecified; K21.9 Gastro-esophageal reflux disease without esophagitis
CPT/HCPCS: 90471

== ENCOUNTER 2017-09-15 07:14 | Inpatient (IN) | payer MEDICARE, MEDICAID ==
[~2017-09-15] VITALS: Ht 167.6 cm; Wt 88.9 kg
[~2017-09-15 07:14] MED LIST changes: +LEVO50TA4 PO; +PANT20TA PO; +PREMC PO
[2017-09-15 07:57] LABS: BASOPHILS # (AUTO) 0.07 K/uL (0.00-0.20); BASOPHILS % (AUTO) 0.7 % (0.0-2.0); EOSINOPHILS # (AUTO) 0.16 K/uL (0.00-0.70); EOSINOPHILS % (AUTO) 1.63 % (1.0-6.0); HEMATOCRIT 37.2 % (36-46); HEMOGLOBIN 12.5 g/dL (12.0-16.0); LYMPHOCYTES # (AUTO) 3.3 K/uL (1.0-4.8); LYMPHOCYTES % (AUTO) 34.1 % (22.0-44.0); MEAN CORPUSCULAR HEMOGLOBIN 29.4 pg (26.0-34.0); MEAN CORPUSCULAR HGB CONC 33.6 G/dL (31.0-37.0); MEAN CORPUSCULAR VOLUME 87 fL (80-100); MONOCYTES # (AUTO) 0.8 K/uL (0.1-1.0); MONOCYTES % (AUTO) 8.3 % (2.0-9.0); NEUTROPHILS # (AUTO) 5.3 K/uL (1.8-7.7); NEUTROPHILS % (AUTO) 55.3 % (40.0-70.0); PLATELET COUNT (AUTO) 318 K/uL (150-450); RED BLOOD CELL COUNT(AUTO) 4.26 MIL/uL (4.00-5.20); RED CELL DISTRIBUTION WIDTH 14.2 % (11.5-14.5)
[2017-09-15 08:07] LABS: ANION GAP 7 mmol/L (8-16); CARBON DIOXIDE 25 mmol/L (22-29); CHLORIDE 106 mmol/L (98-107); CREATININE 0.95 mg/dL (0.60-1.30); GLOMERULAR FILTR. RATE CALC 60 mL/min (>60); GLUCOSE,RANDOM 146 mg/dL (70-110); POTASSIUM 3.2 mmol/L (3.5-5.1); SODIUM SERUM 138 mmol/L (136-145); UREA NITROGEN, BLOOD 18 mg/dL (7-18)
[2017-09-15 08:21] LABS: ALANINE AMINOTRANSFERASE 23 U/L (12-78); ALBUMIN 3.5 g/dL (3.4-5.0); ALKALINE PHOSPHATASE 59 U/L (46-116); ASPARTATE AMINOTRANSFERASE 18 U/L (15-37); BILIRUBIN,TOTAL 0.6 mg/dL (0.1-1.0); TOTAL PROTEIN, SERUM 6.4 g/dL (6.4-8.2)
[2017-09-15] MEDS ORDERED: HALOPERIDOL 5 MG TABLET PO ONE (08:45)
[2017-09-15] MEDS ORDERED: LORazepam 2 MG TABLET PO ONE (08:45)
[2017-09-15] MEDS ORDERED: POTASSIUM CHLORIDE 20 MEQ ER TABLET PO ONE (09:15)
[2017-09-15 10:18] LABS: AMPHET/METH SCREEN,URINE NEGATIVE (NEGATIVE); BARBITURATE SCREEN, URINE NEGATIVE (NEGATIVE); BENZODIAZEPINES SCREEN,URINE NEGATIVE (NEGATIVE); CANNABINOID SCREEN,URINE NEGATIVE (NEGATIVE); COCAINE SCREEN,URINE NEGATIVE (NEGATIVE); METHADONE SCREEN, URINE NEGATIVE (NEGATIVE); OPIATE SCREEN,URINE NEGATIVE (NEGATIVE); PHENCYCLIDINE SCREEN,URINE NEGATIVE (NEGATIVE)
[2017-09-15 11:08] VITALS: BP 111/74
[2017-09-15 11:38] LABS: GLUCOMETER DEV NAME(LOC) BV2S; GLUCOSE,POINT OF CARE 91 MG/DL (70-110)
[2017-09-15] MEDS ORDERED: PANT40TA25 PO (13:29)
[2017-09-15] MEDS ORDERED: -PHARMACY VACCINE NOTE- MISC ONE (13:45)
[2017-09-15 16:07] VITALS: BP 107/60
[2017-09-15] MEDS: HALOPERIDOL 5 MG TABLET PO PRN (18:00)
[2017-09-15] MEDS: LORazepam 2 MG TABLET PO PRN (18:26)
[2017-09-15] MEDS: BENZTROPINE MESYLATE 2 MG TABLET PO SCH (20:42)
[2017-09-15] MEDS: CloZAPine 100 MG TABLET PO SCH (20:42)
[2017-09-16 05:24] VITALS: BP 117/64
[2017-09-16 08:42] VITALS: BP 127/87
[2017-09-16] MEDS: CloZAPine 100 MG TABLET PO SCH ×2 (08:45→21:17)
[2017-09-16 16:41] VITALS: BP_SYST 116; BP_SYST 125; BP_DIAS 82; BP_DIAS 90
[2017-09-16] MEDS: BENZTROPINE MESYLATE 2 MG TABLET PO SCH (21:17)
[2017-09-17 06:37] VITALS: BP 120/70
[2017-09-17] MEDS: CloZAPine 100 MG TABLET PO SCH ×2 (08:17→20:13)
[2017-09-17 08:37] VITALS: BP 121/60
[2017-09-17] MEDS: BACITRACIN 28.4 GM OINTMENT TP SCH (12:58)
[2017-09-17 16:09] VITALS: BP 125/76
[2017-09-17] MEDS: BENZTROPINE MESYLATE 2 MG TABLET PO SCH (20:13)
[2017-09-17] MEDS ORDERED: IBUPROFEN 600 MG TABLET PO PRN (20:15)
[2017-09-17] MEDS ORDERED: ACETAMINOPHEN 325 MG TABLET PO PRN (20:15)
[2017-09-18 03:58] VITALS: BP 129/75
[2017-09-18] MEDS: BACITRACIN 28.4 GM OINTMENT TP SCH (08:37)
[2017-09-18] MEDS: CloZAPine 100 MG TABLET PO SCH ×2 (08:37→20:32)
[2017-09-18 09:01] VITALS: BP 117/73
[2017-09-18 16:08] VITALS: BP 125/85
[2017-09-18] MEDS: BENZTROPINE MESYLATE 2 MG TABLET PO SCH (20:32)
[2017-09-19 06:03] VITALS: BP 119/79
[2017-09-19] MEDS: CloZAPine 100 MG TABLET PO SCH ×2 (08:07→20:48)
[2017-09-19] MEDS: BACITRACIN 28.4 GM OINTMENT TP SCH (08:10)
[2017-09-19 08:28] VITALS: BP 110/60
[2017-09-19 16:09] VITALS: BP 120/83
[2017-09-19] MEDS: BENZTROPINE MESYLATE 2 MG TABLET PO SCH (20:48)
[2017-09-20 01:30] VITALS: BP 109/72
[2017-09-20] MEDS: CloZAPine 100 MG TABLET PO SCH ×2 (08:11→20:19)
[2017-09-20] MEDS: BACITRACIN 28.4 GM OINTMENT TP SCH (08:11)
[2017-09-20 08:37] VITALS: BP 115/74
[2017-09-20 16:06] VITALS: BP 119/69
[2017-09-20] MEDS: BENZTROPINE MESYLATE 2 MG TABLET PO SCH (20:18)
[2017-09-21 06:47] VITALS: BP 121/79
[2017-09-21] MEDS: CloZAPine 100 MG TABLET PO SCH ×2 (08:39→20:35)
[2017-09-21] MEDS: BACITRACIN 28.4 GM OINTMENT TP SCH (08:40)
[2017-09-21 08:51] VITALS: BP 104/77
[2017-09-21 16:04] VITALS: BP 133/77
[2017-09-21] MEDS: BENZTROPINE MESYLATE 2 MG TABLET PO SCH (20:34)
[2017-09-22 06:39] VITALS: BP 138/76
[2017-09-22] MEDS: BACITRACIN 28.4 GM OINTMENT TP SCH (08:04)
[2017-09-22] MEDS: CloZAPine 100 MG TABLET PO SCH ×2 (08:04→20:31)
[2017-09-22 08:22] VITALS: BP 113/71
[2017-09-22 16:11] VITALS: BP 119/90
[2017-09-22] MEDS: BENZTROPINE MESYLATE 2 MG TABLET PO SCH (20:31)
[2017-09-23 00:03] VITALS: BP 121/63
[2017-09-23] MEDS: ZOLPIDEM TARTRATE 10 MG TABLET PO PRN (00:08)
[2017-09-23 08:15] VITALS: BP 124/73
[2017-09-23] MEDS: BACITRACIN 28.4 GM OINTMENT TP SCH (08:19)
[2017-09-23] MEDS: CloZAPine 100 MG TABLET PO SCH ×2 (08:19→20:34)
[2017-09-23] MEDS: LORazepam 2 MG TABLET PO PRN (10:15)
[2017-09-23 16:01] VITALS: BP 127/76
[2017-09-23] MEDS: BENZTROPINE MESYLATE 2 MG TABLET PO SCH (20:34)
[2017-09-24] MEDS: ZOLPIDEM TARTRATE 10 MG TABLET PO PRN (00:04)
[2017-09-24 00:45] VITALS: BP 114/70
[2017-09-24 08:25] VITALS: BP 114/65
[2017-09-24] MEDS: CloZAPine 100 MG TABLET PO SCH ×2 (08:49→20:15)
[2017-09-24] MEDS: BACITRACIN 28.4 GM OINTMENT TP SCH (09:03)
[2017-09-24 16:09] VITALS: BP 129/70
[2017-09-24] MEDS: BENZTROPINE MESYLATE 2 MG TABLET PO SCH (20:15)
[2017-09-25 02:06] VITALS: BP 128/72
[2017-09-25] MEDS: CloZAPine 100 MG TABLET PO SCH ×2 (08:21→20:33)
[2017-09-25] MEDS: BACITRACIN 28.4 GM OINTMENT TP SCH (08:21)
[2017-09-25 08:35] VITALS: BP 138/72
[2017-09-25 16:04] VITALS: BP 120/76
[2017-09-25] MEDS: BENZTROPINE MESYLATE 2 MG TABLET PO SCH (20:33)
[2017-09-26 00:06] VITALS: BP 121/61
[2017-09-26 08:07] VITALS: BP 137/76
[2017-09-26] MEDS: BACITRACIN 28.4 GM OINTMENT TP SCH (08:11)
[2017-09-26] MEDS: CloZAPine 100 MG TABLET PO SCH ×2 (08:11→20:32)
[2017-09-26 16:38] VITALS: BP 125/78
[2017-09-26] MEDS: BENZTROPINE MESYLATE 2 MG TABLET PO SCH (20:31)
[2017-09-26] MEDS ORDERED: MAG HYDROX/AL HYDROX/SIMETH ES 30 ML SUSPENSION UDCUP PO PRN (20:45)
[2017-09-27 00:01] VITALS: BP 127/72
[2017-09-27 08:10] VITALS: BP 128/66
[2017-09-27] MEDS: PANTOPRAZOLE SODIUM 40 MG DR TABLET PO SCH (08:35)
[2017-09-27] MEDS: BACITRACIN 28.4 GM OINTMENT TP SCH (08:35)
[2017-09-27] MEDS: CloZAPine 100 MG TABLET PO SCH ×2 (08:35→20:33)
[2017-09-27 16:05] VITALS: BP 120/78
[2017-09-27] MEDS: BENZTROPINE MESYLATE 2 MG TABLET PO SCH (20:33)
[2017-09-27] MEDS ORDERED: CloZAPine 100 MG TABLET PO SCH (21:00)
[2017-09-28 01:30] VITALS: BP 114/65
[2017-09-28] MEDS: PANTOPRAZOLE SODIUM 40 MG DR TABLET PO SCH (08:11)
[2017-09-28 08:42] VITALS: BP 118/64
[2017-09-28] MEDS ORDERED: CloZAPine 100 MG TABLET PO SCH (09:00)
[2017-09-28 16:02] VITALS: BP 138/84
[2017-09-28] MEDS: DOCUSATE SODIUM 250 MG CAPSULE PO SCH (20:32)
[2017-09-28] MEDS: BENZTROPINE MESYLATE 2 MG TABLET PO SCH (20:32)
[2017-09-28] MEDS: CloZAPine 100 MG TABLET PO SCH (20:33)
[2017-09-29 06:58] VITALS: BP 133/60
[2017-09-29 07:58] LABS: BASOPHILS # (AUTO) 0.09 K/uL (0.00-0.20); BASOPHILS % (AUTO) 0.9 % (0.0-2.0); EOSINOPHILS # (AUTO) 0.41 K/uL (0.00-0.70); EOSINOPHILS % (AUTO) 4.26 % (1.0-6.0); HEMATOCRIT 39.4 % (36-46); LYMPHOCYTES # (AUTO) 3.8 K/uL (1.0-4.8); LYMPHOCYTES % (AUTO) 39.9 % (22.0-44.0); MEAN CORPUSCULAR HEMOGLOBIN 29.3 pg (26.0-34.0); MEAN CORPUSCULAR VOLUME 89 fL (80-100); MONOCYTES # (AUTO) 0.7 K/uL (0.1-1.0); MONOCYTES % (AUTO) 7.4 % (2.0-9.0); NEUTROPHILS # (AUTO) 4.6 K/uL (1.8-7.7); NEUTROPHILS % (AUTO) 47.5 % (40.0-70.0); PLATELET COUNT (AUTO) 314 K/uL (150-450); RED BLOOD CELL COUNT(AUTO) 4.44 MIL/uL (4.00-5.20); RED CELL DISTRIBUTION WIDTH 14.5 % (11.5-14.5)
[2017-09-29] MEDS: CloZAPine 100 MG TABLET PO SCH ×2 (08:22→20:23)
[2017-09-29] MEDS: DOCUSATE SODIUM 250 MG CAPSULE PO SCH ×2 (08:24→17:11)
[2017-09-29] MEDS: PANTOPRAZOLE SODIUM 40 MG DR TABLET PO SCH (08:24)
[2017-09-29 08:47] VITALS: BP 119/69
[2017-09-29 16:03] VITALS: BP 134/78
[2017-09-29] MEDS: BENZTROPINE MESYLATE 2 MG TABLET PO SCH (20:23)
[2017-09-30 02:36] VITALS: BP 131/73
[2017-09-30] MEDS: CloZAPine 100 MG TABLET PO SCH ×2 (08:25→20:34)
[2017-09-30] MEDS: PANTOPRAZOLE SODIUM 40 MG DR TABLET PO SCH (08:25)
[2017-09-30] MEDS: DOCUSATE SODIUM 250 MG CAPSULE PO SCH ×2 (08:25→16:36)
[2017-09-30 08:28] VITALS: BP 135/78
[2017-09-30 16:01] VITALS: BP 133/77
[2017-09-30] MEDS: BENZTROPINE MESYLATE 2 MG TABLET PO SCH (20:34)
[2017-10-01 03:30] VITALS: BP 122/60
[2017-10-01] MEDS: PANTOPRAZOLE SODIUM 40 MG DR TABLET PO SCH (08:36)
[2017-10-01] MEDS: CloZAPine 100 MG TABLET PO SCH ×2 (08:36→20:32)
[2017-10-01] MEDS: DOCUSATE SODIUM 250 MG CAPSULE PO SCH ×2 (08:36→16:28)
[2017-10-01 08:57] VITALS: BP 109/70
[2017-10-01 16:04] VITALS: BP 113/65
[2017-10-01] MEDS: BENZTROPINE MESYLATE 2 MG TABLET PO SCH (20:32)
[2017-10-02 03:32] VITALS: BP 113/79
[2017-10-02 08:19] VITALS: BP 115/68
[2017-10-02] MEDS: PANTOPRAZOLE SODIUM 40 MG DR TABLET PO SCH (08:23)
[2017-10-02] MEDS: DOCUSATE SODIUM 250 MG CAPSULE PO SCH ×2 (08:23→16:04)
[2017-10-02] MEDS: CloZAPine 100 MG TABLET PO SCH ×2 (08:24→20:07)
[2017-10-02] MEDS ORDERED: TUBERCULIN, PURIFIED PROTEIN DERIVATIVE 5 TU/0.1 ML SYG ID ONE (11:30)
[2017-10-02 16:04] VITALS: BP 121/74
[2017-10-02] MEDS: BENZTROPINE MESYLATE 2 MG TABLET PO SCH (20:07)
[2017-10-02] MEDS: ZOLPIDEM TARTRATE 10 MG TABLET PO PRN (23:09)
[2017-10-03 03:03] VITALS: BP 124/73
[2017-10-03 09:23] VITALS: BP 124/68
[2017-10-03] MEDS: CloZAPine 100 MG TABLET PO SCH ×2 (09:36→20:42)
[2017-10-03] MEDS: DOCUSATE SODIUM 250 MG CAPSULE PO SCH ×2 (09:37→16:36)
[2017-10-03] MEDS: PANTOPRAZOLE SODIUM 40 MG DR TABLET PO SCH (09:37)
[2017-10-03 16:03] VITALS: BP 131/67
[2017-10-03] MEDS: BENZTROPINE MESYLATE 2 MG TABLET PO SCH (20:41)
[2017-10-04 05:00] VITALS: BP 123/63
[2017-10-04 08:05] VITALS: BP 111/65
[2017-10-04] MEDS: CloZAPine 100 MG TABLET PO SCH ×2 (08:12→20:49)
[2017-10-04] MEDS: PANTOPRAZOLE SODIUM 40 MG DR TABLET PO SCH (08:13)
[2017-10-04] MEDS: DOCUSATE SODIUM 250 MG CAPSULE PO SCH ×2 (08:13→16:58)
[2017-10-04 16:01] VITALS: BP 126/79
[2017-10-04] MEDS: BENZTROPINE MESYLATE 2 MG TABLET PO SCH (20:49)
[2017-10-05 07:15] VITALS: BP 135/96
[2017-10-05 08:09] VITALS: BP 143/83
[2017-10-05] MEDS: PANTOPRAZOLE SODIUM 40 MG DR TABLET PO SCH (08:20)
[2017-10-05] MEDS: CloZAPine 100 MG TABLET PO SCH ×2 (08:20→20:39)
[2017-10-05] MEDS: DOCUSATE SODIUM 250 MG CAPSULE PO SCH ×2 (08:20→16:36)
[2017-10-05 16:39] VITALS: BP 128/74
[2017-10-05] MEDS: BENZTROPINE MESYLATE 2 MG TABLET PO SCH (20:39)
[2017-10-06 07:01] VITALS: BP 124/71
[2017-10-06 08:11] VITALS: BP 135/58
[2017-10-06] MEDS: PANTOPRAZOLE SODIUM 40 MG DR TABLET PO SCH (08:31)
[2017-10-06] MEDS: DOCUSATE SODIUM 250 MG CAPSULE PO SCH ×2 (08:31→16:35)
[2017-10-06] MEDS: CloZAPine 100 MG TABLET PO SCH ×2 (08:31→20:40)
[2017-10-06 16:09] VITALS: BP 130/78
[2017-10-06] MEDS: BENZTROPINE MESYLATE 2 MG TABLET PO SCH (20:40)
[2017-10-07 06:30] VITALS: BP 112/69
[2017-10-07] MEDS: DOCUSATE SODIUM 250 MG CAPSULE PO SCH ×2 (08:20→16:05)
[2017-10-07] MEDS: PANTOPRAZOLE SODIUM 40 MG DR TABLET PO SCH (08:20)
[2017-10-07] MEDS: CloZAPine 100 MG TABLET PO SCH ×2 (08:21→20:17)
[2017-10-07 08:36] VITALS: BP 112/60
[2017-10-07 16:12] VITALS: BP 110/74
[2017-10-07] MEDS: BENZTROPINE MESYLATE 2 MG TABLET PO SCH (20:18)
[2017-10-08 00:06] VITALS: BP 91/62
[2017-10-08] MEDS: CloZAPine 100 MG TABLET PO SCH ×2 (08:42→20:15)
[2017-10-08] MEDS: PANTOPRAZOLE SODIUM 40 MG DR TABLET PO SCH (08:42)
[2017-10-08] MEDS: DOCUSATE SODIUM 250 MG CAPSULE PO SCH ×2 (08:42→16:11)
[2017-10-08 09:46] VITALS: BP 134/77
[2017-10-08] MEDS ORDERED: PHENYLEPHRINE/SHK LV/MIN OIL/PET 57 GM OINTMENT TP PRN (11:30)
[2017-10-08 16:04] VITALS: BP 138/85
[2017-10-08] MEDS: BENZTROPINE MESYLATE 2 MG TABLET PO SCH (20:15)
[2017-10-09 01:11] VITALS: BP 119/66
[2017-10-09 08:19] LABS: BASOPHILS % (AUTO) 0.6 % (0.0-2.0); HEMATOCRIT 37.4 % (36-46); HEMOGLOBIN 12.8 g/dL (12.0-16.0); LYMPHOCYTES % (AUTO) 36.3 % (22.0-44.0); MEAN CORPUSCULAR HEMOGLOBIN 29.6 pg (26.0-34.0); MEAN CORPUSCULAR HGB CONC 34.2 G/dL (31.0-37.0); MEAN CORPUSCULAR VOLUME 87 fL (80-100); MONOCYTES # (AUTO) 0.5 K/uL (0.1-1.0); MONOCYTES % (AUTO) 6.5 % (2.0-9.0); NEUTROPHILS # (AUTO) 4.3 K/uL (1.8-7.7); NEUTROPHILS % (AUTO) 52.6 % (40.0-70.0); PLATELET COUNT (AUTO) 334 K/uL (150-450); RED BLOOD CELL COUNT(AUTO) 4.32 MIL/uL (4.00-5.20); RED CELL DISTRIBUTION WIDTH 14.6 % (11.5-14.5)
[2017-10-09 08:41] VITALS: BP 105/62
[2017-10-09] MEDS: CloZAPine 100 MG TABLET PO SCH ×2 (08:47→20:33)
[2017-10-09] MEDS: DOCUSATE SODIUM 250 MG CAPSULE PO SCH ×2 (08:48→16:33)
[2017-10-09] MEDS: PANTOPRAZOLE SODIUM 40 MG DR TABLET PO SCH (08:48)
[2017-10-09 16:14] VITALS: BP 118/74
[2017-10-09] MEDS: BENZTROPINE MESYLATE 2 MG TABLET PO SCH (20:33)
[2017-10-10 00:51] VITALS: BP 113/64
[2017-10-10 08:00] VITALS: BP 117/65
[2017-10-10] MEDS: DOCUSATE SODIUM 250 MG CAPSULE PO SCH ×2 (08:26→16:33)
[2017-10-10] MEDS: PANTOPRAZOLE SODIUM 40 MG DR TABLET PO SCH (08:26)
[2017-10-10] MEDS: CloZAPine 100 MG TABLET PO SCH ×2 (08:27→20:31)
[2017-10-10 16:05] VITALS: BP 105/72
[2017-10-10] MEDS: BENZTROPINE MESYLATE 2 MG TABLET PO SCH (20:31)
[2017-10-11 00:30] VITALS: BP 112/62
[2017-10-11] MEDS: PANTOPRAZOLE SODIUM 40 MG DR TABLET PO SCH (08:07)
[2017-10-11] MEDS: CloZAPine 100 MG TABLET PO SCH ×2 (08:08→20:31)
[2017-10-11] MEDS: DOCUSATE SODIUM 250 MG CAPSULE PO SCH ×2 (08:08→16:38)
[2017-10-11 08:23] VITALS: BP 122/54
[2017-10-11 16:03] VITALS: BP 140/95
[2017-10-11] MEDS: BENZTROPINE MESYLATE 2 MG TABLET PO SCH (20:31)
[2017-10-12 00:20] VITALS: BP 126/67
[2017-10-12 08:09] VITALS: BP 126/72
[2017-10-12] MEDS: DOCUSATE SODIUM 250 MG CAPSULE PO SCH ×2 (08:22→16:16)
[2017-10-12] MEDS: PANTOPRAZOLE SODIUM 40 MG DR TABLET PO SCH (08:22)
[2017-10-12] MEDS: CloZAPine 100 MG TABLET PO SCH ×2 (08:22→20:28)
[2017-10-12 16:02] VITALS: BP 120/84
[2017-10-12] MEDS: BENZTROPINE MESYLATE 2 MG TABLET PO SCH (20:28)
[2017-10-13 00:56] VITALS: BP 118/60
[2017-10-13] MEDS: PANTOPRAZOLE SODIUM 40 MG DR TABLET PO SCH (08:14)
[2017-10-13] MEDS: DOCUSATE SODIUM 250 MG CAPSULE PO SCH ×2 (08:14→16:20)
[2017-10-13] MEDS: CloZAPine 100 MG TABLET PO SCH ×2 (08:14→20:19)
[2017-10-13 08:41] VITALS: BP 120/64
[2017-10-13 16:10] VITALS: BP 112/62
[2017-10-13] MEDS: BENZTROPINE MESYLATE 2 MG TABLET PO SCH (20:19)
[2017-10-14 03:53] VITALS: BP 115/65
[2017-10-14 08:15] VITALS: BP 123/74
[2017-10-14] MEDS: DOCUSATE SODIUM 250 MG CAPSULE PO SCH ×2 (08:17→16:00)
[2017-10-14] MEDS: CloZAPine 100 MG TABLET PO SCH ×2 (08:17→20:13)
[2017-10-14] MEDS: PANTOPRAZOLE SODIUM 40 MG DR TABLET PO SCH (08:17)
[2017-10-14 16:06] VITALS: BP 109/70
[2017-10-14] MEDS: BENZTROPINE MESYLATE 2 MG TABLET PO SCH (20:14)
[2017-10-15 05:54] VITALS: BP 112/78
[2017-10-15 08:23] VITALS: BP 131/75
[2017-10-15] MEDS: CloZAPine 100 MG TABLET PO SCH ×2 (08:59→20:21)
[2017-10-15] MEDS: PANTOPRAZOLE SODIUM 40 MG DR TABLET PO SCH (08:59)
[2017-10-15] MEDS: DOCUSATE SODIUM 250 MG CAPSULE PO SCH ×2 (08:59→16:13)
[2017-10-15 16:14] VITALS: BP 107/64
[2017-10-15] MEDS: BENZTROPINE MESYLATE 2 MG TABLET PO SCH (20:21)
[2017-10-16 00:47] VITALS: BP 130/72
[2017-10-16] MEDS: DOCUSATE SODIUM 250 MG CAPSULE PO SCH ×2 (08:26→16:40)
[2017-10-16] MEDS: CloZAPine 100 MG TABLET PO SCH ×2 (08:26→20:33)
[2017-10-16] MEDS: PANTOPRAZOLE SODIUM 40 MG DR TABLET PO SCH (08:26)
[2017-10-16 08:46] LABS: BASOPHILS # (AUTO) 0.05 K/uL (0.00-0.20); BASOPHILS % (AUTO) 0.6 % (0.0-2.0); EOSINOPHILS # (AUTO) 0.31 K/uL (0.00-0.70); HEMATOCRIT 39.5 % (36-46); HEMOGLOBIN 12.9 g/dL (12.0-16.0); LYMPHOCYTES # (AUTO) 3.5 K/uL (1.0-4.8); LYMPHOCYTES % (AUTO) 39.9 % (22.0-44.0); MEAN CORPUSCULAR HEMOGLOBIN 28.8 pg (26.0-34.0); MEAN CORPUSCULAR HGB CONC 32.6 G/dL (31.0-37.0); MEAN CORPUSCULAR VOLUME 88 fL (80-100); MONOCYTES # (AUTO) 0.6 K/uL (0.1-1.0); MONOCYTES % (AUTO) 6.4 % (2.0-9.0); NEUTROPHILS # (AUTO) 4.3 K/uL (1.8-7.7); NEUTROPHILS % (AUTO) 49.6 % (40.0-70.0); PLATELET COUNT (AUTO) 309 K/uL (150-450); RED BLOOD CELL COUNT(AUTO) 4.46 MIL/uL (4.00-5.20); RED CELL DISTRIBUTION WIDTH 15.1 % (11.5-14.5)
[2017-10-16 09:05] VITALS: BP 121/75
[2017-10-16 16:22] VITALS: BP 130/83
[2017-10-16] MEDS: BENZTROPINE MESYLATE 2 MG TABLET PO SCH (20:33)
[2017-10-17 01:33] VITALS: BP 121/65
[2017-10-17] MEDS: DOCUSATE SODIUM 250 MG CAPSULE PO SCH ×2 (08:14→16:42)
[2017-10-17] MEDS: PANTOPRAZOLE SODIUM 40 MG DR TABLET PO SCH (08:15)
[2017-10-17] MEDS: CloZAPine 100 MG TABLET PO SCH ×2 (08:15→20:44)
[2017-10-17 08:32] VITALS: BP 133/71
[2017-10-17 16:25] VITALS: BP 132/64
[2017-10-17] MEDS: BENZTROPINE MESYLATE 2 MG TABLET PO SCH (20:44)
[2017-10-18 04:42] VITALS: BP 132/72
[2017-10-18 08:38] VITALS: BP 127/58
[2017-10-18] MEDS: CloZAPine 100 MG TABLET PO SCH ×2 (08:50→20:17)
[2017-10-18] MEDS: PANTOPRAZOLE SODIUM 40 MG DR TABLET PO SCH (08:50)
[2017-10-18] MEDS: DOCUSATE SODIUM 250 MG CAPSULE PO SCH ×2 (08:50→16:09)
[2017-10-18 16:54] VITALS: BP 143/78
[2017-10-18] MEDS: BENZTROPINE MESYLATE 2 MG TABLET PO SCH (20:16)
[2017-10-19 04:25] VITALS: BP 100/64
[2017-10-19] MEDS: DOCUSATE SODIUM 250 MG CAPSULE PO SCH ×2 (08:06→16:40)
[2017-10-19] MEDS: PANTOPRAZOLE SODIUM 40 MG DR TABLET PO SCH (08:06)
[2017-10-19] MEDS: CloZAPine 100 MG TABLET PO SCH ×2 (08:07→20:30)
[2017-10-19 08:39] VITALS: BP 96/59
[2017-10-19 13:46] VITALS: BP 127/73
[2017-10-19 16:13] VITALS: BP 127/66
[2017-10-19] MEDS: BENZTROPINE MESYLATE 2 MG TABLET PO SCH (20:30)
[2017-10-20 05:41] VITALS: BP 133/76
[2017-10-20 08:01] VITALS: BP 130/79
[2017-10-20] MEDS: DOCUSATE SODIUM 250 MG CAPSULE PO SCH ×2 (08:09→16:14)
[2017-10-20] MEDS: CloZAPine 100 MG TABLET PO SCH ×2 (08:09→20:07)
[2017-10-20] MEDS: PANTOPRAZOLE SODIUM 40 MG DR TABLET PO SCH (08:09)
[2017-10-20 09:34] VITALS: BP 136/79
[2017-10-20 16:14] VITALS: BP 139/72
[2017-10-20] MEDS: BENZTROPINE MESYLATE 2 MG TABLET PO SCH (20:07)
[2017-10-21 01:09] VITALS: BP 126/62
[2017-10-21] MEDS: DOCUSATE SODIUM 250 MG CAPSULE PO SCH ×2 (08:01→16:08)
[2017-10-21] MEDS: CloZAPine 100 MG TABLET PO SCH ×2 (08:01→20:19)
[2017-10-21] MEDS: PANTOPRAZOLE SODIUM 40 MG DR TABLET PO SCH (08:01)
[2017-10-21 08:18] VITALS: BP 125/71
[2017-10-21 16:00] VITALS: BP 110/75
[2017-10-21] MEDS: BENZTROPINE MESYLATE 2 MG TABLET PO SCH (20:19)
[2017-10-22 06:22] VITALS: BP 111/71
[2017-10-22] MEDS: PANTOPRAZOLE SODIUM 40 MG DR TABLET PO SCH (08:17)
[2017-10-22] MEDS: CloZAPine 100 MG TABLET PO SCH ×2 (08:17→20:28)
[2017-10-22] MEDS: DOCUSATE SODIUM 250 MG CAPSULE PO SCH ×2 (08:17→16:16)
[2017-10-22 08:42] VITALS: BP 116/71
[2017-10-22 16:23] VITALS: BP 137/83
[2017-10-22] MEDS: BENZTROPINE MESYLATE 2 MG TABLET PO SCH (20:28)
[2017-10-23 06:44] VITALS: BP 131/91
[2017-10-23 08:06] LABS: BASOPHILS # (AUTO) 0.04 K/uL (0.00-0.20); BASOPHILS % (AUTO) 0.4 % (0.0-2.0); EOSINOPHILS # (AUTO) 0.37 K/uL (0.00-0.70); EOSINOPHILS % (AUTO) 3.84 % (1.0-6.0); HEMATOCRIT 41.2 % (36-46); HEMOGLOBIN 13.5 g/dL (12.0-16.0); LYMPHOCYTES % (AUTO) 41.6 % (22.0-44.0); MEAN CORPUSCULAR HEMOGLOBIN 28.9 pg (26.0-34.0); MEAN CORPUSCULAR HGB CONC 32.8 G/dL (31.0-37.0); MEAN CORPUSCULAR VOLUME 88 fL (80-100); MONOCYTES # (AUTO) 0.5 K/uL (0.1-1.0); MONOCYTES % (AUTO) 5.3 % (2.0-9.0); NEUTROPHILS # (AUTO) 4.8 K/uL (1.8-7.7); NEUTROPHILS % (AUTO) 48.9 % (40.0-70.0); PLATELET COUNT (AUTO) 308 K/uL (150-450); RED BLOOD CELL COUNT(AUTO) 4.68 MIL/uL (4.00-5.20); RED CELL DISTRIBUTION WIDTH 14.6 % (11.5-14.5)
[2017-10-23] MEDS: PANTOPRAZOLE SODIUM 40 MG DR TABLET PO SCH (08:09)
[2017-10-23] MEDS: CloZAPine 100 MG TABLET PO SCH ×2 (08:09→20:43)
[2017-10-23] MEDS: DOCUSATE SODIUM 250 MG CAPSULE PO SCH ×2 (08:10→16:36)
[2017-10-23 08:40] VITALS: BP 131/65
[2017-10-23 19:38] VITALS: BP 137/89
[2017-10-23] MEDS: BENZTROPINE MESYLATE 2 MG TABLET PO SCH (20:43)
[2017-10-24 06:33] VITALS: BP 118/73
[2017-10-24] MEDS: PANTOPRAZOLE SODIUM 40 MG DR TABLET PO SCH (08:10)
[2017-10-24] MEDS: CloZAPine 100 MG TABLET PO SCH ×2 (08:11→20:10)
[2017-10-24] MEDS: DOCUSATE SODIUM 250 MG CAPSULE PO SCH ×2 (08:11→16:40)
[2017-10-24 08:19] VITALS: BP 132/75
[2017-10-24 16:29] VITALS: BP 125/48
[2017-10-24] MEDS: BENZTROPINE MESYLATE 2 MG TABLET PO SCH (20:10)
[2017-10-25 00:46] VITALS: BP 115/68
[2017-10-25] MEDS: DOCUSATE SODIUM 250 MG CAPSULE PO SCH ×2 (08:17→16:09)
[2017-10-25] MEDS: PANTOPRAZOLE SODIUM 40 MG DR TABLET PO SCH (08:17)
[2017-10-25] MEDS: CloZAPine 100 MG TABLET PO SCH ×2 (08:17→20:16)
[2017-10-25 08:47] VITALS: BP 104/78
[2017-10-25 16:21] VITALS: BP 135/85
[2017-10-25] MEDS: BENZTROPINE MESYLATE 2 MG TABLET PO SCH (20:17)
[2017-10-26 06:46] VITALS: BP 115/89
[2017-10-26] MEDS: CloZAPine 100 MG TABLET PO SCH ×2 (08:15→20:47)
[2017-10-26] MEDS: DOCUSATE SODIUM 250 MG CAPSULE PO SCH ×2 (08:15→16:53)
[2017-10-26] MEDS: PANTOPRAZOLE SODIUM 40 MG DR TABLET PO SCH (08:15)
[2017-10-26 08:31] VITALS: BP 111/60
[2017-10-26 17:35] VITALS: BP 120/74
[2017-10-26] MEDS: BENZTROPINE MESYLATE 2 MG TABLET PO SCH (20:47)
[2017-10-27 01:23] VITALS: BP 119/65
[2017-10-27] MEDS: CloZAPine 100 MG TABLET PO SCH ×2 (08:25→20:19)
[2017-10-27] MEDS: DOCUSATE SODIUM 250 MG CAPSULE PO SCH ×2 (08:25→16:05)
[2017-10-27] MEDS: PANTOPRAZOLE SODIUM 40 MG DR TABLET PO SCH (08:25)
[2017-10-27 08:49] VITALS: BP 120/70
[2017-10-27 16:36] VITALS: BP 113/64
[2017-10-27] MEDS: BENZTROPINE MESYLATE 2 MG TABLET PO SCH (20:18)
[2017-10-28 06:48] VITALS: BP 121/68
[2017-10-28] MEDS: DOCUSATE SODIUM 250 MG CAPSULE PO SCH ×2 (08:05→16:18)
[2017-10-28] MEDS: PANTOPRAZOLE SODIUM 40 MG DR TABLET PO SCH (08:05)
[2017-10-28] MEDS: CloZAPine 100 MG TABLET PO SCH ×2 (08:05→20:29)
[2017-10-28 08:39] VITALS: BP 112/68
[2017-10-28 16:40] VITALS: BP 100/70
[2017-10-28] MEDS: BENZTROPINE MESYLATE 2 MG TABLET PO SCH (20:29)
[2017-10-29 06:08] VITALS: BP 117/73
[2017-10-29 08:30] VITALS: BP 120/78
[2017-10-29] MEDS: CloZAPine 100 MG TABLET PO SCH ×2 (08:43→20:29)
[2017-10-29] MEDS: DOCUSATE SODIUM 250 MG CAPSULE PO SCH ×2 (08:43→16:21)
[2017-10-29] MEDS: PANTOPRAZOLE SODIUM 40 MG DR TABLET PO SCH (08:43)
[2017-10-29 16:31] VITALS: BP 120/73
[2017-10-29] MEDS: BENZTROPINE MESYLATE 2 MG TABLET PO SCH (20:29)
[2017-10-30 05:45] VITALS: BP 137/63
[2017-10-30] MEDS: PANTOPRAZOLE SODIUM 40 MG DR TABLET PO SCH (08:18)
[2017-10-30] MEDS: DOCUSATE SODIUM 250 MG CAPSULE PO SCH ×2 (08:18→16:41)
[2017-10-30] MEDS: CloZAPine 100 MG TABLET PO SCH ×2 (08:18→20:36)
[2017-10-30 08:26] VITALS: BP 120/77
[2017-10-30 08:33] LABS: BASOPHILS # (AUTO) 0.05 K/uL (0.00-0.20); BASOPHILS % (AUTO) 0.6 % (0.0-2.0); EOSINOPHILS # (AUTO) 0.37 K/uL (0.00-0.70); EOSINOPHILS % (AUTO) 3.91 % (1.0-6.0); HEMATOCRIT 38.5 % (36-46); HEMOGLOBIN 12.7 g/dL (12.0-16.0); LYMPHOCYTES # (AUTO) 3.6 K/uL (1.0-4.8); LYMPHOCYTES % (AUTO) 38.7 % (22.0-44.0); MEAN CORPUSCULAR HEMOGLOBIN 28.9 pg (26.0-34.0); MEAN CORPUSCULAR VOLUME 88 fL (80-100); MONOCYTES # (AUTO) 0.7 K/uL (0.1-1.0); MONOCYTES % (AUTO) 6.9 % (2.0-9.0); NEUTROPHILS # (AUTO) 4.7 K/uL (1.8-7.7); NEUTROPHILS % (AUTO) 49.9 % (40.0-70.0); PLATELET COUNT (AUTO) 279 K/uL (150-450); RED CELL DISTRIBUTION WIDTH 14.5 % (11.5-14.5)
[2017-10-30 16:10] VITALS: BP 123/80
[2017-10-30] MEDS: BENZTROPINE MESYLATE 2 MG TABLET PO SCH (20:36)
[2017-10-31 01:51] VITALS: BP 127/68
[2017-10-31 08:22] VITALS: BP 120/78
[2017-10-31] MEDS: DOCUSATE SODIUM 250 MG CAPSULE PO SCH ×2 (09:18→16:42)
[2017-10-31] MEDS: CloZAPine 100 MG TABLET PO SCH ×2 (09:18→20:39)
[2017-10-31] MEDS: PANTOPRAZOLE SODIUM 40 MG DR TABLET PO SCH (09:18)
[2017-10-31 16:18] VITALS: BP 122/77
[2017-10-31] MEDS: BENZTROPINE MESYLATE 2 MG TABLET PO SCH (20:39)
[2017-11-01 02:16] VITALS: BP 120/65
[2017-11-01] MEDS: CloZAPine 100 MG TABLET PO SCH ×2 (08:40→20:34)
[2017-11-01] MEDS: DOCUSATE SODIUM 250 MG CAPSULE PO SCH ×2 (08:40→16:07)
[2017-11-01] MEDS: PANTOPRAZOLE SODIUM 40 MG DR TABLET PO SCH (08:40)
[2017-11-01 09:04] VITALS: BP 125/64
[2017-11-01 16:08] VITALS: BP 117/84
[2017-11-01] MEDS: BENZTROPINE MESYLATE 2 MG TABLET PO SCH (20:34)
[2017-11-02 06:39] VITALS: BP 122/74
[2017-11-02 08:00] VITALS: BP 120/71
[2017-11-02] MEDS: PANTOPRAZOLE SODIUM 40 MG DR TABLET PO SCH (08:02)
[2017-11-02] MEDS: CloZAPine 100 MG TABLET PO SCH ×2 (08:02→20:29)
[2017-11-02] MEDS: DOCUSATE SODIUM 250 MG CAPSULE PO SCH ×2 (08:02→16:36)
[2017-11-02 16:22] VITALS: BP 130/76
[2017-11-02] MEDS: BENZTROPINE MESYLATE 2 MG TABLET PO SCH (20:29)
[2017-11-03 06:57] VITALS: BP 120/73
[2017-11-03] MEDS: PANTOPRAZOLE SODIUM 40 MG DR TABLET PO SCH (08:27)
[2017-11-03] MEDS: CloZAPine 100 MG TABLET PO SCH ×2 (08:27→20:36)
[2017-11-03] MEDS: DOCUSATE SODIUM 250 MG CAPSULE PO SCH ×2 (08:28→16:33)
[2017-11-03 08:44] VITALS: BP 124/62
[2017-11-03 16:05] VITALS: BP 112/71
[2017-11-03] MEDS: BENZTROPINE MESYLATE 2 MG TABLET PO SCH (20:36)
[2017-11-04 06:47] VITALS: BP 121/73
[2017-11-04 08:20] VITALS: BP 123/73
[2017-11-04] MEDS: DOCUSATE SODIUM 250 MG CAPSULE PO SCH ×2 (08:20→16:13)
[2017-11-04] MEDS: PANTOPRAZOLE SODIUM 40 MG DR TABLET PO SCH (08:20)
[2017-11-04] MEDS: CloZAPine 100 MG TABLET PO SCH ×2 (08:20→20:02)
[2017-11-04 16:00] VITALS: BP 116/73
[2017-11-04] MEDS: BENZTROPINE MESYLATE 2 MG TABLET PO SCH (20:02)
[2017-11-05 01:48] VITALS: BP 112/87
[2017-11-05] MEDS: DOCUSATE SODIUM 250 MG CAPSULE PO SCH ×2 (08:23→16:11)
[2017-11-05] MEDS: CloZAPine 100 MG TABLET PO SCH ×2 (08:23→20:19)
[2017-11-05] MEDS: PANTOPRAZOLE SODIUM 40 MG DR TABLET PO SCH (08:23)
[2017-11-05 08:37] VITALS: BP 116/63
[2017-11-05 16:08] VITALS: BP 106/65
[2017-11-05] MEDS: BENZTROPINE MESYLATE 2 MG TABLET PO SCH (20:19)
[2017-11-06 00:57] VITALS: BP 121/69
[2017-11-06] MEDS: DOCUSATE SODIUM 250 MG CAPSULE PO SCH ×2 (08:05→16:40)
[2017-11-06] MEDS: CloZAPine 100 MG TABLET PO SCH ×2 (08:05→20:37)
[2017-11-06] MEDS: PANTOPRAZOLE SODIUM 40 MG DR TABLET PO SCH (08:05)
[2017-11-06 08:41] VITALS: BP 118/62
[2017-11-06 16:25] VITALS: BP 125/72
[2017-11-06] MEDS: BENZTROPINE MESYLATE 2 MG TABLET PO SCH (20:37)
[2017-11-07 06:34] VITALS: BP 120/68
[2017-11-07] MEDS: CloZAPine 100 MG TABLET PO SCH ×2 (08:13→20:34)
[2017-11-07] MEDS: DOCUSATE SODIUM 250 MG CAPSULE PO SCH ×2 (08:13→16:34)
[2017-11-07] MEDS: PANTOPRAZOLE SODIUM 40 MG DR TABLET PO SCH (08:13)
[2017-11-07 08:27] VITALS: BP 120/67
[2017-11-07 11:11] LABS: BASOPHILS # (AUTO) 0.04 K/uL (0.00-0.20); BASOPHILS % (AUTO) 0.4 % (0.0-2.0); EOSINOPHILS # (AUTO) 0.28 K/uL (0.00-0.70); HEMATOCRIT 40.4 % (36-46); HEMOGLOBIN 13.3 g/dL (12.0-16.0); LYMPHOCYTES % (AUTO) 41.1 % (22.0-44.0); MEAN CORPUSCULAR HEMOGLOBIN 29.3 pg (26.0-34.0); MEAN CORPUSCULAR HGB CONC 32.8 G/dL (31.0-37.0); MEAN CORPUSCULAR VOLUME 89 fL (80-100); MONOCYTES # (AUTO) 0.6 K/uL (0.1-1.0); MONOCYTES % (AUTO) 5.7 % (2.0-9.0); NEUTROPHILS # (AUTO) 4.8 K/uL (1.8-7.7); NEUTROPHILS % (AUTO) 49.9 % (40.0-70.0); PLATELET COUNT (AUTO) 290 K/uL (150-450); RED BLOOD CELL COUNT(AUTO) 4.53 MIL/uL (4.00-5.20); RED CELL DISTRIBUTION WIDTH 14.8 % (11.5-14.5)
[2017-11-07 16:00] VITALS: BP 122/71
[2017-11-07] MEDS: BENZTROPINE MESYLATE 2 MG TABLET PO SCH (20:35)
[2017-11-08 06:37] VITALS: BP 138/85
[2017-11-08] MEDS: PANTOPRAZOLE SODIUM 40 MG DR TABLET PO SCH (08:18)
[2017-11-08] MEDS: DOCUSATE SODIUM 250 MG CAPSULE PO SCH ×2 (08:18→16:32)
[2017-11-08] MEDS: CloZAPine 100 MG TABLET PO SCH ×2 (08:18→20:35)
[2017-11-08 08:44] VITALS: BP 125/74
[2017-11-08 16:40] VITALS: BP 142/88
[2017-11-08] MEDS: BENZTROPINE MESYLATE 2 MG TABLET PO SCH (20:35)
[2017-11-09 04:24] VITALS: BP 121/68
[2017-11-09 08:08] VITALS: BP 126/83
[2017-11-09] MEDS: DOCUSATE SODIUM 250 MG CAPSULE PO SCH ×2 (08:19→16:37)
[2017-11-09] MEDS: CloZAPine 100 MG TABLET PO SCH ×2 (08:19→20:39)
[2017-11-09] MEDS: PANTOPRAZOLE SODIUM 40 MG DR TABLET PO SCH (08:19)
[2017-11-09 16:27] VITALS: BP 118/70
[2017-11-09] MEDS: BENZTROPINE MESYLATE 2 MG TABLET PO SCH (20:39)
[2017-11-10 05:39] VITALS: BP 120/81
[2017-11-10] MEDS: PANTOPRAZOLE SODIUM 40 MG DR TABLET PO SCH (08:24)
[2017-11-10] MEDS: DOCUSATE SODIUM 250 MG CAPSULE PO SCH ×2 (08:24→16:06)
[2017-11-10] MEDS: CloZAPine 100 MG TABLET PO SCH ×2 (08:25→20:22)
[2017-11-10 08:28] VITALS: BP 126/67
[2017-11-10 16:24] VITALS: BP 106/65
[2017-11-10] MEDS: BENZTROPINE MESYLATE 2 MG TABLET PO SCH (20:22)
[2017-11-11 00:30] VITALS: BP 110/60
[2017-11-11 08:28] VITALS: BP 123/61
[2017-11-11] MEDS: PANTOPRAZOLE SODIUM 40 MG DR TABLET PO SCH (08:35)
[2017-11-11] MEDS: DOCUSATE SODIUM 250 MG CAPSULE PO SCH ×2 (08:35→16:30)
[2017-11-11] MEDS: CloZAPine 100 MG TABLET PO SCH ×2 (08:36→20:36)
[2017-11-11 16:29] VITALS: BP 115/73
[2017-11-11] MEDS: BENZTROPINE MESYLATE 2 MG TABLET PO SCH (20:36)
[2017-11-12 00:10] VITALS: BP 103/64
[2017-11-12] MEDS: DOCUSATE SODIUM 250 MG CAPSULE PO SCH ×2 (08:03→16:30)
[2017-11-12] MEDS: PANTOPRAZOLE SODIUM 40 MG DR TABLET PO SCH (08:03)
[2017-11-12] MEDS: CloZAPine 100 MG TABLET PO SCH ×2 (08:04→20:32)
[2017-11-12 08:07] VITALS: BP 126/74
[2017-11-12 16:06] VITALS: BP 118/65
[2017-11-12] MEDS: BENZTROPINE MESYLATE 2 MG TABLET PO SCH (20:32)
[2017-11-13 06:52] VITALS: BP 131/81
[2017-11-13] MEDS: CloZAPine 100 MG TABLET PO SCH ×2 (08:08→20:42)
[2017-11-13] MEDS: DOCUSATE SODIUM 250 MG CAPSULE PO SCH ×2 (08:08→16:37)
[2017-11-13] MEDS: PANTOPRAZOLE SODIUM 40 MG DR TABLET PO SCH (08:08)
[2017-11-13 08:58] VITALS: BP 123/72
[2017-11-13 16:17] VITALS: BP 116/63
[2017-11-13] MEDS: BENZTROPINE MESYLATE 2 MG TABLET PO SCH (20:42)
[2017-11-14 06:36] VITALS: BP 123/90
[2017-11-14] MEDS: DOCUSATE SODIUM 250 MG CAPSULE PO SCH ×2 (08:08→16:37)
[2017-11-14] MEDS: CloZAPine 100 MG TABLET PO SCH ×2 (08:08→20:30)
[2017-11-14] MEDS: PANTOPRAZOLE SODIUM 40 MG DR TABLET PO SCH (08:09)
[2017-11-14 08:53] VITALS: BP 100/69
[2017-11-14 09:09] LABS: BASOPHILS # (AUTO) 0.06 K/uL (0.00-0.20); BASOPHILS % (AUTO) 0.6 % (0.0-2.0); EOSINOPHILS # (AUTO) 0.31 K/uL (0.00-0.70); HEMATOCRIT 39.7 % (36-46); HEMOGLOBIN 13.1 g/dL (12.0-16.0); LYMPHOCYTES # (AUTO) 3.9 K/uL (1.0-4.8); LYMPHOCYTES % (AUTO) 42.8 % (22.0-44.0); MEAN CORPUSCULAR HEMOGLOBIN 29.2 pg (26.0-34.0); MEAN CORPUSCULAR HGB CONC 32.9 G/dL (31.0-37.0); MEAN CORPUSCULAR VOLUME 89 fL (80-100); MONOCYTES # (AUTO) 0.7 K/uL (0.1-1.0); MONOCYTES % (AUTO) 7.5 % (2.0-9.0); NEUTROPHILS # (AUTO) 4.2 K/uL (1.8-7.7); NEUTROPHILS % (AUTO) 45.7 % (40.0-70.0); PLATELET COUNT (AUTO) 297 K/uL (150-450); RED BLOOD CELL COUNT(AUTO) 4.46 MIL/uL (4.00-5.20); RED CELL DISTRIBUTION WIDTH 14.7 % (11.5-14.5)
[2017-11-14 16:15] VITALS: BP 122/84
[2017-11-14] MEDS: BENZTROPINE MESYLATE 2 MG TABLET PO SCH (20:30)
[2017-11-15 06:24] VITALS: BP 122/64
[2017-11-15] MEDS: PANTOPRAZOLE SODIUM 40 MG DR TABLET PO SCH (08:20)
[2017-11-15] MEDS: DOCUSATE SODIUM 250 MG CAPSULE PO SCH ×2 (08:20→16:33)
[2017-11-15] MEDS: CloZAPine 100 MG TABLET PO SCH ×2 (08:20→20:34)
[2017-11-15 08:37] VITALS: BP 123/84
[2017-11-15 16:08] VITALS: BP 124/64
[2017-11-15] MEDS: BENZTROPINE MESYLATE 2 MG TABLET PO SCH (20:34)
[2017-11-16 06:42] VITALS: BP 121/63
[2017-11-16] MEDS: CloZAPine 100 MG TABLET PO SCH ×2 (08:18→20:40)
[2017-11-16] MEDS: DOCUSATE SODIUM 250 MG CAPSULE PO SCH ×2 (08:18→16:38)
[2017-11-16] MEDS: PANTOPRAZOLE SODIUM 40 MG DR TABLET PO SCH (08:18)
[2017-11-16 08:42] VITALS: BP 108/68
[2017-11-16] MEDS: MAGNESIUM CITRATE 300 ML ORAL SOLUTION PO PRN (11:07)
[2017-11-16 16:31] VITALS: BP 128/80
[2017-11-16] MEDS: BENZTROPINE MESYLATE 2 MG TABLET PO SCH (20:40)
[2017-11-17 07:14] VITALS: BP 105/69
[2017-11-17] MEDS: DOCUSATE SODIUM 250 MG CAPSULE PO SCH ×2 (08:09→16:42)
[2017-11-17] MEDS: CloZAPine 100 MG TABLET PO SCH ×2 (08:09→20:38)
[2017-11-17] MEDS: PANTOPRAZOLE SODIUM 40 MG DR TABLET PO SCH (08:09)
[2017-11-17 08:52] VITALS: BP 122/65
[2017-11-17 16:01] VITALS: BP 113/81
[2017-11-17] MEDS: BENZTROPINE MESYLATE 2 MG TABLET PO SCH (20:38)
[2017-11-18 06:44] VITALS: BP 112/68
[2017-11-18] MEDS: DOCUSATE SODIUM 250 MG CAPSULE PO SCH ×2 (08:36→16:09)
[2017-11-18] MEDS: PANTOPRAZOLE SODIUM 40 MG DR TABLET PO SCH (08:36)
[2017-11-18] MEDS: CloZAPine 100 MG TABLET PO SCH ×2 (08:36→20:24)
[2017-11-18 09:04] VITALS: BP 113/60
[2017-11-18 16:09] VITALS: BP 116/85
[2017-11-18] MEDS: BENZTROPINE MESYLATE 2 MG TABLET PO SCH (20:24)
[2017-11-19 00:15] VITALS: BP 126/67
[2017-11-19] MEDS: PANTOPRAZOLE SODIUM 40 MG DR TABLET PO SCH (08:08)
[2017-11-19] MEDS: CloZAPine 100 MG TABLET PO SCH ×2 (08:08→20:57)
[2017-11-19] MEDS: DOCUSATE SODIUM 250 MG CAPSULE PO SCH ×2 (08:08→17:10)
[2017-11-19 08:28] VITALS: BP 123/64
[2017-11-19 16:14] VITALS: BP 117/73
[2017-11-19] MEDS: BENZTROPINE MESYLATE 2 MG TABLET PO SCH (20:57)
[2017-11-20 01:15] VITALS: BP 98/62
[2017-11-20 07:57] VITALS: BP 100/63
[2017-11-20] MEDS: PANTOPRAZOLE SODIUM 40 MG DR TABLET PO SCH (08:08)
[2017-11-20] MEDS: DOCUSATE SODIUM 250 MG CAPSULE PO SCH ×2 (08:08→16:44)
[2017-11-20] MEDS: CloZAPine 100 MG TABLET PO SCH ×2 (08:08→20:34)
[2017-11-20 08:10] VITALS: BP 100/63
[2017-11-20 16:12] VITALS: BP 125/65
[2017-11-20] MEDS: BENZTROPINE MESYLATE 2 MG TABLET PO SCH (20:34)
[2017-11-21 00:58] VITALS: BP 117/72
[2017-11-21 07:48] LABS: BASOPHILS % (AUTO) 0.8 % (0.0-2.0); EOSINOPHILS % (AUTO) 3.3 % (1.0-6.0); HEMATOCRIT 40.8 % (36-46); HEMOGLOBIN 13.6 g/dL (12.0-16.0); LYMPHOCYTES # (AUTO) 4.5 K/uL (1.0-4.8); LYMPHOCYTES % (AUTO) 46.3 % (22.0-44.0); MEAN CORPUSCULAR HEMOGLOBIN 29.4 pg (26.0-34.0); MEAN CORPUSCULAR HGB CONC 33.4 G/dL (31.0-37.0); MEAN CORPUSCULAR VOLUME 88 fL (80-100); MONOCYTES # (AUTO) 0.6 K/uL (0.1-1.0); MONOCYTES % (AUTO) 6.6 % (2.0-9.0); NEUTROPHILS # (AUTO) 4.2 K/uL (1.8-7.7); PLATELET COUNT (AUTO) 316 K/uL (150-450); RED BLOOD CELL COUNT(AUTO) 4.65 MIL/uL (4.00-5.20); RED CELL DISTRIBUTION WIDTH 15.1 % (11.5-14.5)
[2017-11-21] MEDS: CloZAPine 100 MG TABLET PO SCH ×2 (08:46→20:39)
[2017-11-21] MEDS: DOCUSATE SODIUM 250 MG CAPSULE PO SCH ×2 (08:46→16:42)
[2017-11-21] MEDS: PANTOPRAZOLE SODIUM 40 MG DR TABLET PO SCH (08:46)
[2017-11-21 08:47] VITALS: BP 100/72
[2017-11-21 16:21] VITALS: BP 108/64
[2017-11-21] MEDS: BENZTROPINE MESYLATE 2 MG TABLET PO SCH (20:39)
[2017-11-22 00:39] VITALS: BP 134/62
[2017-11-22] MEDS: DOCUSATE SODIUM 250 MG CAPSULE PO SCH ×2 (08:01→16:33)
[2017-11-22] MEDS: PANTOPRAZOLE SODIUM 40 MG DR TABLET PO SCH (08:01)
[2017-11-22] MEDS: CloZAPine 100 MG TABLET PO SCH ×2 (08:02→20:37)
[2017-11-22 08:17] VITALS: BP 117/69
[2017-11-22 16:42] VITALS: BP 122/67
[2017-11-22] MEDS: BENZTROPINE MESYLATE 2 MG TABLET PO SCH (20:37)
[2017-11-23 02:50] VITALS: BP 130/84
[2017-11-23] MEDS: DOCUSATE SODIUM 250 MG CAPSULE PO SCH ×2 (08:09→17:16)
[2017-11-23] MEDS: CloZAPine 100 MG TABLET PO SCH ×2 (08:09→20:37)
[2017-11-23] MEDS: PANTOPRAZOLE SODIUM 40 MG DR TABLET PO SCH (08:09)
[2017-11-23 08:16] VITALS: BP 128/70
[2017-11-23 16:05] VITALS: BP 124/70
[2017-11-23] MEDS: BENZTROPINE MESYLATE 2 MG TABLET PO SCH (20:37)
[2017-11-24 00:29] VITALS: BP 122/61
[2017-11-24] MEDS: DOCUSATE SODIUM 250 MG CAPSULE PO SCH ×2 (08:18→16:18)
[2017-11-24] MEDS: HALOPERIDOL 5 MG TABLET PO PRN ×3 (08:18→20:19)
[2017-11-24] MEDS: CloZAPine 100 MG TABLET PO SCH ×2 (08:18→20:19)
[2017-11-24] MEDS: PANTOPRAZOLE SODIUM 40 MG DR TABLET PO SCH (08:18)
[2017-11-24 08:25] VITALS: BP 134/70
[2017-11-24 16:12] VITALS: BP 131/82
[2017-11-24] MEDS: BENZTROPINE MESYLATE 2 MG TABLET PO SCH (20:19)
[2017-11-25 01:02] VITALS: BP 128/78
[2017-11-25 08:22] VITALS: BP 130/62
[2017-11-25] MEDS: PANTOPRAZOLE SODIUM 40 MG DR TABLET PO SCH (08:23)
[2017-11-25] MEDS: DOCUSATE SODIUM 250 MG CAPSULE PO SCH ×2 (08:23→16:35)
[2017-11-25] MEDS: CloZAPine 100 MG TABLET PO SCH ×2 (08:24→20:37)
[2017-11-25] MEDS: HALOPERIDOL 5 MG TABLET PO PRN (08:57)
[2017-11-25 17:01] VITALS: BP 125/63
[2017-11-25] MEDS: BENZTROPINE MESYLATE 2 MG TABLET PO SCH (20:36)
[2017-11-26 06:53] VITALS: BP 131/78
[2017-11-26 08:00] VITALS: BP 137/68
[2017-11-26] MEDS: DOCUSATE SODIUM 250 MG CAPSULE PO SCH ×2 (08:34→16:31)
[2017-11-26] MEDS: CloZAPine 100 MG TABLET PO SCH ×2 (08:34→20:34)
[2017-11-26] MEDS: PANTOPRAZOLE SODIUM 40 MG DR TABLET PO SCH (08:34)
[2017-11-26 16:18] VITALS: BP 109/79
[2017-11-26] MEDS: BENZTROPINE MESYLATE 2 MG TABLET PO SCH (20:34)
[2017-11-27 04:52] VITALS: BP 107/78
[2017-11-27] MEDS: CloZAPine 100 MG TABLET PO SCH ×2 (08:27→20:21)
[2017-11-27] MEDS: PANTOPRAZOLE SODIUM 40 MG DR TABLET PO SCH (08:27)
[2017-11-27] MEDS: DOCUSATE SODIUM 250 MG CAPSULE PO SCH ×2 (08:27→16:14)
[2017-11-27 08:31] VITALS: BP 127/72
[2017-11-27 16:13] VITALS: BP 125/69
[2017-11-27] MEDS: BENZTROPINE MESYLATE 2 MG TABLET PO SCH (20:21)
[2017-11-28 00:32] VITALS: BP 129/79
[2017-11-28] MEDS: PANTOPRAZOLE SODIUM 40 MG DR TABLET PO SCH (08:07)
[2017-11-28] MEDS: DOCUSATE SODIUM 250 MG CAPSULE PO SCH ×2 (08:07→16:33)
[2017-11-28] MEDS: CloZAPine 100 MG TABLET PO SCH ×2 (08:07→20:36)
[2017-11-28 08:14] LABS: BASOPHILS % (AUTO) 0.9 % (0.0-2.0); EOSINOPHILS % (AUTO) 3.6 % (1.0-6.0); HEMATOCRIT 39.1 % (36-46); LYMPHOCYTES # (AUTO) 3.5 K/uL (1.0-4.8); MEAN CORPUSCULAR HEMOGLOBIN 28.6 pg (26.0-34.0); MEAN CORPUSCULAR HGB CONC 33.2 G/dL (31.0-37.0); MEAN CORPUSCULAR VOLUME 86 fL (80-100); MONOCYTES # (AUTO) 0.7 K/uL (0.1-1.0); MONOCYTES % (AUTO) 7.4 % (2.0-9.0); NEUTROPHILS # (AUTO) 4.2 K/uL (1.8-7.7); NEUTROPHILS % (AUTO) 48.1 % (40.0-70.0); PLATELET COUNT (AUTO) 282 K/uL (150-450); RED BLOOD CELL COUNT(AUTO) 4.53 MIL/uL (4.00-5.20); RED CELL DISTRIBUTION WIDTH 14.5 % (11.5-14.5)
[2017-11-28 08:15] VITALS: BP 122/60
[2017-11-28 16:02] VITALS: BP 134/77
[2017-11-28] MEDS: BENZTROPINE MESYLATE 2 MG TABLET PO SCH (20:36)
[2017-11-29 05:29] VITALS: BP 124/70
[2017-11-29 08:05] VITALS: BP 120/80
[2017-11-29] MEDS: DOCUSATE SODIUM 250 MG CAPSULE PO SCH ×2 (08:47→16:42)
[2017-11-29] MEDS: CloZAPine 100 MG TABLET PO SCH ×2 (08:47→20:37)
[2017-11-29] MEDS: PANTOPRAZOLE SODIUM 40 MG DR TABLET PO SCH (08:48)
[2017-11-29 16:08] VITALS: BP 126/62
[2017-11-29] MEDS: BENZTROPINE MESYLATE 2 MG TABLET PO SCH (20:37)
[2017-11-30 04:12] VITALS: BP 124/74
[2017-11-30] MEDS: DOCUSATE SODIUM 250 MG CAPSULE PO SCH ×2 (08:48→16:36)
[2017-11-30] MEDS: CloZAPine 100 MG TABLET PO SCH ×2 (08:48→20:35)
[2017-11-30] MEDS: PANTOPRAZOLE SODIUM 40 MG DR TABLET PO SCH (08:48)
[2017-11-30 08:54] VITALS: BP 129/76
[2017-11-30 16:22] VITALS: BP 137/76
[2017-11-30] MEDS: BENZTROPINE MESYLATE 2 MG TABLET PO SCH (20:35)
[2017-12-01] VITALS: BP 119/73
[2017-12-01 08:17] VITALS: BP 127/75
[2017-12-01] MEDS: DOCUSATE SODIUM 250 MG CAPSULE PO SCH ×2 (08:50→17:12)
[2017-12-01] MEDS: CloZAPine 100 MG TABLET PO SCH ×2 (08:50→20:40)
[2017-12-01] MEDS: PANTOPRAZOLE SODIUM 40 MG DR TABLET PO SCH (08:50)
[2017-12-01 19:27] VITALS: BP 128/76
[2017-12-01] MEDS: BENZTROPINE MESYLATE 2 MG TABLET PO SCH (20:40)
[2017-12-02 00:11] VITALS: BP 126/71
[2017-12-02] MEDS: DOCUSATE SODIUM 250 MG CAPSULE PO SCH ×2 (08:11→17:08)
[2017-12-02] MEDS: CloZAPine 100 MG TABLET PO SCH ×2 (08:11→20:33)
[2017-12-02] MEDS: PANTOPRAZOLE SODIUM 40 MG DR TABLET PO SCH (08:11)
[2017-12-02 08:35] VITALS: BP 104/64
[2017-12-02] MEDS: BENZTROPINE MESYLATE 2 MG TABLET PO SCH (20:33)
[2017-12-02 20:47] VITALS: BP 132/68
[2017-12-03 01:01] VITALS: BP 130/75
[2017-12-03 08:37] VITALS: BP 110/60
[2017-12-03] MEDS: CloZAPine 100 MG TABLET PO SCH ×2 (08:59→20:25)
[2017-12-03] MEDS: DOCUSATE SODIUM 250 MG CAPSULE PO SCH ×2 (08:59→16:16)
[2017-12-03] MEDS: PANTOPRAZOLE SODIUM 40 MG DR TABLET PO SCH (08:59)
[2017-12-03 16:20] VITALS: BP 134/81
[2017-12-03] MEDS: BENZTROPINE MESYLATE 2 MG TABLET PO SCH (20:25)
[2017-12-04 00:30] VITALS: BP 127/73
[2017-12-04 08:05] VITALS: BP 110/65
[2017-12-04] MEDS: PANTOPRAZOLE SODIUM 40 MG DR TABLET PO SCH (08:55)
[2017-12-04] MEDS: DOCUSATE SODIUM 250 MG CAPSULE PO SCH ×2 (08:55→16:37)
[2017-12-04] MEDS: CloZAPine 100 MG TABLET PO SCH ×2 (08:55→20:34)
[2017-12-04 16:07] VITALS: BP 121/80
[2017-12-04] MEDS: BENZTROPINE MESYLATE 2 MG TABLET PO SCH (20:34)
[2017-12-05 01:16] VITALS: BP 121/62
[2017-12-05 07:38] LABS: BASOPHILS % (AUTO) 0.8 % (0.0-2.0); HEMATOCRIT 41.7 % (36-46); HEMOGLOBIN 13.8 g/dL (12.0-16.0); LYMPHOCYTES % (AUTO) 48.3 % (22.0-44.0); MEAN CORPUSCULAR HEMOGLOBIN 28.8 pg (26.0-34.0); MEAN CORPUSCULAR HGB CONC 33.2 G/dL (31.0-37.0); MEAN CORPUSCULAR VOLUME 87 fL (80-100); MONOCYTES # (AUTO) 0.6 K/uL (0.1-1.0); MONOCYTES % (AUTO) 6.1 % (2.0-9.0); NEUTROPHILS # (AUTO) 4.3 K/uL (1.8-7.7); NEUTROPHILS % (AUTO) 41.8 % (40.0-70.0); PLATELET COUNT (AUTO) 324 K/uL (150-450); RED CELL DISTRIBUTION WIDTH 14.8 % (11.5-14.5)
[2017-12-05 08:20] VITALS: BP 105/71
[2017-12-05] MEDS: PANTOPRAZOLE SODIUM 40 MG DR TABLET PO SCH (08:56)
[2017-12-05] MEDS: CloZAPine 100 MG TABLET PO SCH ×2 (08:56→20:39)
[2017-12-05] MEDS: DOCUSATE SODIUM 250 MG CAPSULE PO SCH ×2 (08:56→16:39)
[2017-12-05 16:06] VITALS: BP 138/75
[2017-12-05] MEDS: BENZTROPINE MESYLATE 2 MG TABLET PO SCH (20:39)
[2017-12-06 06:35] VITALS: BP 139/82
[2017-12-06] MEDS: DOCUSATE SODIUM 250 MG CAPSULE PO SCH ×2 (08:11→16:52)
[2017-12-06] MEDS: PANTOPRAZOLE SODIUM 40 MG DR TABLET PO SCH (08:11)
[2017-12-06] MEDS: CloZAPine 100 MG TABLET PO SCH ×2 (08:11→20:54)
[2017-12-06 08:15] VITALS: BP 140/75
[2017-12-06 08:20] VITALS: BP 102/60
[2017-12-06 16:12] VITALS: BP 131/75
[2017-12-06] MEDS: BENZTROPINE MESYLATE 2 MG TABLET PO SCH (20:54)
[2017-12-07 01:31] VITALS: BP 125/74
[2017-12-07 08:19] VITALS: BP 120/80
[2017-12-07] MEDS: DOCUSATE SODIUM 250 MG CAPSULE PO SCH ×2 (08:33→16:39)
[2017-12-07] MEDS: PANTOPRAZOLE SODIUM 40 MG DR TABLET PO SCH (08:33)
[2017-12-07] MEDS: CloZAPine 100 MG TABLET PO SCH ×2 (08:35→20:31)
[2017-12-07 16:09] VITALS: BP 117/77
[2017-12-07] MEDS: BENZTROPINE MESYLATE 2 MG TABLET PO SCH (20:31)
[2017-12-08 06:49] VITALS: BP 126/66
[2017-12-08 06:50] VITALS: BP 115/76
[2017-12-08] MEDS: DOCUSATE SODIUM 250 MG CAPSULE PO SCH ×2 (08:27→16:14)
[2017-12-08] MEDS: PANTOPRAZOLE SODIUM 40 MG DR TABLET PO SCH (08:28)
[2017-12-08] MEDS: CloZAPine 100 MG TABLET PO SCH ×2 (08:28→20:43)
[2017-12-08 08:29] VITALS: BP 123/67
[2017-12-08 16:18] VITALS: BP 110/70
[2017-12-08] MEDS: BENZTROPINE MESYLATE 2 MG TABLET PO SCH (20:43)
[2017-12-09 06:38] VITALS: BP 118/73
[2017-12-09 08:26] VITALS: BP 114/60
[2017-12-09] MEDS: PANTOPRAZOLE SODIUM 40 MG DR TABLET PO SCH (08:32)
[2017-12-09] MEDS: DOCUSATE SODIUM 250 MG CAPSULE PO SCH ×2 (08:33→16:38)
[2017-12-09] MEDS: CloZAPine 100 MG TABLET PO SCH ×2 (08:33→20:34)
[2017-12-09 16:16] VITALS: BP 117/77
[2017-12-09] MEDS: BENZTROPINE MESYLATE 2 MG TABLET PO SCH (20:34)
[2017-12-10 00:28] VITALS: BP 133/70
[2017-12-10 08:24] VITALS: BP 116/76
[2017-12-10] MEDS: CloZAPine 100 MG TABLET PO SCH ×2 (08:27→20:23)
[2017-12-10] MEDS: DOCUSATE SODIUM 250 MG CAPSULE PO SCH ×2 (08:27→16:06)
[2017-12-10] MEDS: PANTOPRAZOLE SODIUM 40 MG DR TABLET PO SCH (08:28)
[2017-12-10 16:13] VITALS: BP 108/68
[2017-12-10] MEDS: BENZTROPINE MESYLATE 2 MG TABLET PO SCH (20:23)
[2017-12-11 01:09] VITALS: BP 131/88
[2017-12-11] MEDS: PANTOPRAZOLE SODIUM 40 MG DR TABLET PO SCH (08:23)
[2017-12-11] MEDS: DOCUSATE SODIUM 250 MG CAPSULE PO SCH ×2 (08:23→16:37)
[2017-12-11] MEDS: CloZAPine 100 MG TABLET PO SCH ×2 (08:23→20:41)
[2017-12-11 08:34] VITALS: BP 123/72
[2017-12-11 16:06] VITALS: BP 130/79
[2017-12-11] MEDS: BENZTROPINE MESYLATE 2 MG TABLET PO SCH (20:41)
[2017-12-12] VITALS: BP 119/60
[2017-12-12] MEDS: PANTOPRAZOLE SODIUM 40 MG DR TABLET PO SCH (08:03)
[2017-12-12] MEDS: DOCUSATE SODIUM 250 MG CAPSULE PO SCH ×2 (08:03→16:44)
[2017-12-12] MEDS: CloZAPine 100 MG TABLET PO SCH ×2 (08:04→20:35)
[2017-12-12 08:24] VITALS: BP 118/80
[2017-12-12 12:02] LABS: BASOPHILS % (AUTO) 0.7 % (0.0-2.0); EOSINOPHILS % (AUTO) 2.7 % (1.0-6.0); HEMATOCRIT 42.7 % (36-46); HEMOGLOBIN 14.1 g/dL (12.0-16.0); LYMPHOCYTES # (AUTO) 5.1 K/uL (1.0-4.8); LYMPHOCYTES % (AUTO) 47.6 % (22.0-44.0); MEAN CORPUSCULAR HEMOGLOBIN 28.9 pg (26.0-34.0); MEAN CORPUSCULAR HGB CONC 32.9 G/dL (31.0-37.0); MEAN CORPUSCULAR VOLUME 88 fL (80-100); MONOCYTES # (AUTO) 0.7 K/uL (0.1-1.0); NEUTROPHILS # (AUTO) 4.5 K/uL (1.8-7.7); PLATELET COUNT (AUTO) 317 K/uL (150-450); RED BLOOD CELL COUNT(AUTO) 4.86 MIL/uL (4.00-5.20); RED CELL DISTRIBUTION WIDTH 14.4 % (11.5-14.5)
[2017-12-12 16:13] VITALS: BP 109/74
[2017-12-12] MEDS: BENZTROPINE MESYLATE 2 MG TABLET PO SCH (20:35)
[2017-12-13 00:28] VITALS: BP 133/71
[2017-12-13] MEDS: CloZAPine 100 MG TABLET PO SCH ×2 (08:30→20:22)
[2017-12-13] MEDS: PANTOPRAZOLE SODIUM 40 MG DR TABLET PO SCH (08:30)
[2017-12-13] MEDS: DOCUSATE SODIUM 250 MG CAPSULE PO SCH ×2 (08:30→16:14)
[2017-12-13 09:13] VITALS: BP 142/88
[2017-12-13 12:00] VITALS: BP 118/62
[2017-12-13 16:15] VITALS: BP 137/67
[2017-12-13] MEDS: BENZTROPINE MESYLATE 2 MG TABLET PO SCH (20:22)
[2017-12-14 06:20] VITALS: BP 104/73
[2017-12-14 08:30] VITALS: BP 117/69
[2017-12-14] MEDS: CloZAPine 100 MG TABLET PO SCH ×2 (09:11→20:36)
[2017-12-14] MEDS: PANTOPRAZOLE SODIUM 40 MG DR TABLET PO SCH (09:11)
[2017-12-14] MEDS: DOCUSATE SODIUM 250 MG CAPSULE PO SCH ×2 (09:11→16:35)
[2017-12-14 16:09] VITALS: BP 135/75
[2017-12-14] MEDS: BENZTROPINE MESYLATE 2 MG TABLET PO SCH (20:36)
[2017-12-15 00:20] VITALS: BP 127/68
[2017-12-15 08:32] VITALS: BP 134/75
[2017-12-15] MEDS: PANTOPRAZOLE SODIUM 40 MG DR TABLET PO SCH (08:59)
[2017-12-15] MEDS: CloZAPine 100 MG TABLET PO SCH ×2 (09:00→20:27)
[2017-12-15] MEDS: DOCUSATE SODIUM 250 MG CAPSULE PO SCH ×2 (09:00→16:04)
[2017-12-15 17:26] VITALS: BP 119/77
[2017-12-15] MEDS: BENZTROPINE MESYLATE 2 MG TABLET PO SCH (20:27)
[2017-12-16 01:47] VITALS: BP 109/69
[2017-12-16 08:15] VITALS: BP 125/83
[2017-12-16] MEDS: DOCUSATE SODIUM 250 MG CAPSULE PO SCH ×2 (08:42→16:14)
[2017-12-16] MEDS: CloZAPine 100 MG TABLET PO SCH ×2 (08:43→20:04)
[2017-12-16] MEDS: PANTOPRAZOLE SODIUM 40 MG DR TABLET PO SCH (08:43)
[2017-12-16 16:17] VITALS: BP 120/66
[2017-12-16] MEDS: BENZTROPINE MESYLATE 2 MG TABLET PO SCH (20:03)
[2017-12-17 06:40] VITALS: BP 117/74
[2017-12-17 08:11] VITALS: BP 132/81
[2017-12-17] MEDS: DOCUSATE SODIUM 250 MG CAPSULE PO SCH ×2 (08:29→16:10)
[2017-12-17] MEDS: PANTOPRAZOLE SODIUM 40 MG DR TABLET PO SCH (08:29)
[2017-12-17] MEDS: CloZAPine 100 MG TABLET PO SCH ×2 (08:30→20:33)
[2017-12-17 16:18] VITALS: BP 139/83
[2017-12-17] MEDS: BENZTROPINE MESYLATE 2 MG TABLET PO SCH (20:33)
[2017-12-18 06:37] VITALS: BP 130/70
[2017-12-18 08:14] VITALS: BP 108/66
[2017-12-18] MEDS: PANTOPRAZOLE SODIUM 40 MG DR TABLET PO SCH (08:19)
[2017-12-18] MEDS: CloZAPine 100 MG TABLET PO SCH ×2 (08:19→20:29)
[2017-12-18] MEDS: DOCUSATE SODIUM 250 MG CAPSULE PO SCH ×2 (08:19→16:47)
[2017-12-18 16:07] VITALS: BP 103/68
[2017-12-18] MEDS: BENZTROPINE MESYLATE 2 MG TABLET PO SCH (20:29)
[2017-12-19 06:00] VITALS: BP 116/84
[2017-12-19 08:05] VITALS: BP 122/71
[2017-12-19] MEDS: DOCUSATE SODIUM 250 MG CAPSULE PO SCH ×2 (08:13→16:40)
[2017-12-19] MEDS: CloZAPine 100 MG TABLET PO SCH ×2 (08:13→20:29)
[2017-12-19] MEDS: PANTOPRAZOLE SODIUM 40 MG DR TABLET PO SCH (08:13)
[2017-12-19 16:09] VITALS: BP 105/65
[2017-12-19] MEDS: BENZTROPINE MESYLATE 2 MG TABLET PO SCH (20:29)
[2017-12-20 01:59] VITALS: BP 130/64
[2017-12-20 08:10] VITALS: BP 137/78
[2017-12-20] MEDS: CloZAPine 100 MG TABLET PO SCH ×2 (08:24→21:49)
[2017-12-20] MEDS: PANTOPRAZOLE SODIUM 40 MG DR TABLET PO SCH (08:24)
[2017-12-20] MEDS: DOCUSATE SODIUM 250 MG CAPSULE PO SCH ×2 (08:24→16:33)
[2017-12-20 08:32] LABS: BASOPHILS % (AUTO) 0.9 % (0.0-2.0); EOSINOPHILS % (AUTO) 3.9 % (1.0-6.0); HEMATOCRIT 38.2 % (36-46); HEMOGLOBIN 12.9 g/dL (12.0-16.0); LYMPHOCYTES # (AUTO) 4.2 K/uL (1.0-4.8); LYMPHOCYTES % (AUTO) 47.7 % (22.0-44.0); MEAN CORPUSCULAR HEMOGLOBIN 29.2 pg (26.0-34.0); MEAN CORPUSCULAR HGB CONC 33.7 G/dL (31.0-37.0); MEAN CORPUSCULAR VOLUME 87 fL (80-100); MONOCYTES # (AUTO) 0.6 K/uL (0.1-1.0); MONOCYTES % (AUTO) 7.1 % (2.0-9.0); NEUTROPHILS # (AUTO) 3.6 K/uL (1.8-7.7); NEUTROPHILS % (AUTO) 40.4 % (40.0-70.0); PLATELET COUNT (AUTO) 260 K/uL (150-450); RED BLOOD CELL COUNT(AUTO) 4.41 MIL/uL (4.00-5.20); RED CELL DISTRIBUTION WIDTH 14.6 % (11.5-14.5)
[2017-12-20 16:18] VITALS: BP 131/74
[2017-12-20] MEDS: BENZTROPINE MESYLATE 2 MG TABLET PO SCH (21:49)
[2017-12-21 00:10] VITALS: BP 120/78
[2017-12-21 08:00] VITALS: BP 104/82
[2017-12-21] MEDS: CloZAPine 100 MG TABLET PO SCH ×2 (08:04→20:32)
[2017-12-21] MEDS: PANTOPRAZOLE SODIUM 40 MG DR TABLET PO SCH (08:04)
[2017-12-21] MEDS: DOCUSATE SODIUM 250 MG CAPSULE PO SCH ×2 (08:04→16:33)
[2017-12-21 08:34] LABS: BASOPHILS % (AUTO) 0.5 % (0.0-2.0); EOSINOPHILS % (AUTO) 3.2 % (1.0-6.0); HEMATOCRIT 41.3 % (36-46); HEMOGLOBIN 13.7 g/dL (12.0-16.0); LYMPHOCYTES # (AUTO) 5.6 K/uL (1.0-4.8); LYMPHOCYTES % (AUTO) 51.6 % (22.0-44.0); MEAN CORPUSCULAR HEMOGLOBIN 28.9 pg (26.0-34.0); MEAN CORPUSCULAR HGB CONC 33.3 G/dL (31.0-37.0); MEAN CORPUSCULAR VOLUME 87 fL (80-100); MONOCYTES # (AUTO) 0.8 K/uL (0.1-1.0); MONOCYTES % (AUTO) 7.2 % (2.0-9.0); NEUTROPHILS # (AUTO) 4.1 K/uL (1.8-7.7); NEUTROPHILS % (AUTO) 37.5 % (40.0-70.0); PLATELET COUNT (AUTO) 300 K/uL (150-450); RED BLOOD CELL COUNT(AUTO) 4.75 MIL/uL (4.00-5.20); RED CELL DISTRIBUTION WIDTH 14.6 % (11.5-14.5)
[2017-12-21 08:52] LABS: ALANINE AMINOTRANSFERASE 37 U/L (12-78); ALBUMIN 3.4 g/dL (3.4-5.0); ALKALINE PHOSPHATASE 68 U/L (46-116); ANION GAP 8 mmol/L (8-16); ASPARTATE AMINOTRANSFERASE 18 U/L (15-37); BILIRUBIN,TOTAL 0.3 mg/dL (0.1-1.0); CALCIUM, TOTAL 9.5 mg/dL (8.8-10.5); CARBON DIOXIDE 29 mmol/L (22-29); CHLORIDE 105 mmol/L (98-107); CHOL/HDL RATIO 5.2 (3.9-5.7); CHOLESTEROL 243 mg/dL (131-200); CREATININE 0.76 mg/dL (0.60-1.30); GLOMERULAR FILTR. RATE CALC > 60 mL/min (>60); GLUCOSE,RANDOM 99 mg/dL (70-110); HDL CHOLESTEROL 47 mg/dL (40-60); LDL CHOL (CALC.) 149 mg/dL (0-130); POTASSIUM 3.7 mmol/L (3.5-5.1); SODIUM SERUM 142 mmol/L (136-145); TOTAL PROTEIN, SERUM 6.5 g/dL (6.4-8.2); TRIGLYCERIDES 236 mg/dL (15-150); UREA NITROGEN, BLOOD 21 mg/dL (7-18)
[2017-12-21 16:14] VITALS: BP 126/79
[2017-12-21] MEDS: ATORVASTATIN CALCIUM 40 MG TABLET PO SCH (20:32)
[2017-12-21] MEDS: BENZTROPINE MESYLATE 2 MG TABLET PO SCH (20:32)
[2017-12-22 06:28] VITALS: BP 133/78
[2017-12-22 08:13] VITALS: BP 131/69
[2017-12-22] MEDS: CloZAPine 100 MG TABLET PO SCH ×2 (09:02→20:10)
[2017-12-22] MEDS: OMEGA-3/DHA/EPA/FISH OIL 1,000 MG CAPSULE PO SCH (09:02)
[2017-12-22] MEDS: DOCUSATE SODIUM 250 MG CAPSULE PO SCH ×2 (09:02→16:18)
[2017-12-22] MEDS: PANTOPRAZOLE SODIUM 40 MG DR TABLET PO SCH (09:02)
[2017-12-22 16:01] VITALS: BP 134/64
[2017-12-22] MEDS: BENZTROPINE MESYLATE 2 MG TABLET PO SCH (20:10)
[2017-12-22] MEDS: ATORVASTATIN CALCIUM 40 MG TABLET PO SCH (20:10)
[2017-12-23 06:36] VITALS: BP 138/75
[2017-12-23] MEDS: OMEGA-3/DHA/EPA/FISH OIL 1,000 MG CAPSULE PO SCH (08:11)
[2017-12-23] MEDS: CloZAPine 100 MG TABLET PO SCH ×2 (08:11→20:36)
[2017-12-23] MEDS: PANTOPRAZOLE SODIUM 40 MG DR TABLET PO SCH (08:11)
[2017-12-23] MEDS: DOCUSATE SODIUM 250 MG CAPSULE PO SCH ×2 (08:11→16:32)
[2017-12-23 08:25] VITALS: BP 107/69
[2017-12-23 16:11] VITALS: BP 110/71
[2017-12-23] MEDS: BENZTROPINE MESYLATE 2 MG TABLET PO SCH (20:35)
[2017-12-23] MEDS: ATORVASTATIN CALCIUM 40 MG TABLET PO SCH (20:35)
[2017-12-24 01:11] VITALS: BP 120/61
[2017-12-24 08:14] VITALS: BP 125/72
[2017-12-24] MEDS: PANTOPRAZOLE SODIUM 40 MG DR TABLET PO SCH (08:17)
[2017-12-24] MEDS: DOCUSATE SODIUM 250 MG CAPSULE PO SCH ×2 (08:17→16:07)
[2017-12-24] MEDS: OMEGA-3/DHA/EPA/FISH OIL 1,000 MG CAPSULE PO SCH (08:17)
[2017-12-24] MEDS: CloZAPine 100 MG TABLET PO SCH ×2 (08:17→20:16)
[2017-12-24 16:00] VITALS: BP 127/76
[2017-12-24] MEDS: ATORVASTATIN CALCIUM 40 MG TABLET PO SCH (20:16)
[2017-12-24] MEDS: BENZTROPINE MESYLATE 2 MG TABLET PO SCH (20:16)
[2017-12-25 00:16] VITALS: BP 110/70
[2017-12-25] MEDS: PANTOPRAZOLE SODIUM 40 MG DR TABLET PO SCH (08:02)
[2017-12-25] MEDS: CloZAPine 100 MG TABLET PO SCH ×2 (08:02→20:34)
[2017-12-25] MEDS: DOCUSATE SODIUM 250 MG CAPSULE PO SCH ×2 (08:02→16:40)
[2017-12-25] MEDS: OMEGA-3/DHA/EPA/FISH OIL 1,000 MG CAPSULE PO SCH (08:20)
[2017-12-25 08:36] VITALS: BP 108/61
[2017-12-25 16:17] VITALS: BP 135/78
[2017-12-25] MEDS: ATORVASTATIN CALCIUM 40 MG TABLET PO SCH (20:34)
[2017-12-25] MEDS: BENZTROPINE MESYLATE 2 MG TABLET PO SCH (20:34)
[2017-12-26 06:36] VITALS: BP 101/66
[2017-12-26] MEDS: CloZAPine 100 MG TABLET PO SCH ×2 (08:23→20:39)
[2017-12-26 08:24] VITALS: BP 119/77
[2017-12-26] MEDS: OMEGA-3/DHA/EPA/FISH OIL 1,000 MG CAPSULE PO SCH (08:24)
[2017-12-26] MEDS: DOCUSATE SODIUM 250 MG CAPSULE PO SCH ×2 (08:24→16:40)
[2017-12-26] MEDS: PANTOPRAZOLE SODIUM 40 MG DR TABLET PO SCH (08:24)
[2017-12-26 16:07] VITALS: BP 122/64
[2017-12-26] MEDS: BENZTROPINE MESYLATE 2 MG TABLET PO SCH (20:39)
[2017-12-26] MEDS: ATORVASTATIN CALCIUM 40 MG TABLET PO SCH (20:39)
[2017-12-27 01:46] VITALS: BP 114/63
[2017-12-27 08:11] LABS: BASOPHILS % (AUTO) 0.8 % (0.0-2.0); EOSINOPHILS % (AUTO) 3.4 % (1.0-6.0); HEMATOCRIT 38.4 % (36-46); HEMOGLOBIN 12.7 g/dL (12.0-16.0); LYMPHOCYTES # (AUTO) 4.3 K/uL (1.0-4.8); LYMPHOCYTES % (AUTO) 44.3 % (22.0-44.0); MEAN CORPUSCULAR HEMOGLOBIN 28.7 pg (26.0-34.0); MEAN CORPUSCULAR VOLUME 87 fL (80-100); MONOCYTES # (AUTO) 0.7 K/uL (0.1-1.0); MONOCYTES % (AUTO) 7.5 % (2.0-9.0); NEUTROPHILS # (AUTO) 4.3 K/uL (1.8-7.7); PLATELET COUNT (AUTO) 272 K/uL (150-450); RED BLOOD CELL COUNT(AUTO) 4.43 MIL/uL (4.00-5.20); RED CELL DISTRIBUTION WIDTH 14.6 % (11.5-14.5)
[2017-12-27] MEDS: CloZAPine 100 MG TABLET PO SCH ×2 (08:37→20:42)
[2017-12-27] MEDS: OMEGA-3/DHA/EPA/FISH OIL 1,000 MG CAPSULE PO SCH (08:37)
[2017-12-27] MEDS: PANTOPRAZOLE SODIUM 40 MG DR TABLET PO SCH (08:37)
[2017-12-27] MEDS: DOCUSATE SODIUM 250 MG CAPSULE PO SCH ×2 (08:38→16:36)
[2017-12-27 09:05] VITALS: BP 109/63
[2017-12-27 16:09] VITALS: BP 138/86
[2017-12-27] MEDS: BENZTROPINE MESYLATE 2 MG TABLET PO SCH (20:41)
[2017-12-27] MEDS: ATORVASTATIN CALCIUM 40 MG TABLET PO SCH (20:42)
[2017-12-28 06:37] VITALS: BP 119/82
[2017-12-28 08:15] VITALS: BP 108/70
[2017-12-28] MEDS: CloZAPine 100 MG TABLET PO SCH ×2 (08:23→20:33)
[2017-12-28] MEDS: DOCUSATE SODIUM 250 MG CAPSULE PO SCH ×2 (08:23→16:35)
[2017-12-28] MEDS: PANTOPRAZOLE SODIUM 40 MG DR TABLET PO SCH (08:23)
[2017-12-28] MEDS: OMEGA-3/DHA/EPA/FISH OIL 1,000 MG CAPSULE PO SCH (08:23)
[2017-12-28 16:10] VITALS: BP 108/63
[2017-12-28] MEDS: BENZTROPINE MESYLATE 2 MG TABLET PO SCH (20:32)
[2017-12-28] MEDS: ATORVASTATIN CALCIUM 40 MG TABLET PO SCH (20:32)
[2017-12-29 00:25] VITALS: BP 120/62
[2017-12-29 08:04] VITALS: BP 118/60
[2017-12-29] MEDS: CloZAPine 100 MG TABLET PO SCH ×2 (08:29→20:48)
[2017-12-29] MEDS: DOCUSATE SODIUM 250 MG CAPSULE PO SCH ×2 (08:29→16:44)
[2017-12-29] MEDS: PANTOPRAZOLE SODIUM 40 MG DR TABLET PO SCH (08:29)
[2017-12-29] MEDS: OMEGA-3/DHA/EPA/FISH OIL 1,000 MG CAPSULE PO SCH (08:29)
[2017-12-29 16:31] VITALS: BP 110/75
[2017-12-29] MEDS: BENZTROPINE MESYLATE 2 MG TABLET PO SCH (20:48)
[2017-12-29] MEDS: ATORVASTATIN CALCIUM 40 MG TABLET PO SCH (20:48)
[2017-12-30 03:00] VITALS: BP 130/86
[2017-12-30 08:00] VITALS: BP 123/57
[2017-12-30] MEDS: PANTOPRAZOLE SODIUM 40 MG DR TABLET PO SCH (08:11)
[2017-12-30] MEDS: CloZAPine 100 MG TABLET PO SCH ×2 (08:11→20:56)
[2017-12-30] MEDS: OMEGA-3/DHA/EPA/FISH OIL 1,000 MG CAPSULE PO SCH (08:11)
[2017-12-30] MEDS: DOCUSATE SODIUM 250 MG CAPSULE PO SCH ×2 (08:11→17:07)
[2017-12-30 16:15] VITALS: BP 127/77
[2017-12-30] MEDS: BENZTROPINE MESYLATE 2 MG TABLET PO SCH (20:56)
[2017-12-30] MEDS: ATORVASTATIN CALCIUM 40 MG TABLET PO SCH (20:56)
[2017-12-30] MEDS: ZOLPIDEM TARTRATE 10 MG TABLET PO PRN (22:01)
[2017-12-31] VITALS: BP 131/63
[2017-12-31] MEDS: CloZAPine 100 MG TABLET PO SCH ×2 (08:08→20:10)
[2017-12-31] MEDS: PANTOPRAZOLE SODIUM 40 MG DR TABLET PO SCH (08:08)
[2017-12-31] MEDS: DOCUSATE SODIUM 250 MG CAPSULE PO SCH ×2 (08:08→16:28)
[2017-12-31] MEDS: OMEGA-3/DHA/EPA/FISH OIL 1,000 MG CAPSULE PO SCH (08:08)
[2017-12-31] MEDS: MAGNESIUM CITRATE 300 ML ORAL SOLUTION PO PRN (08:12)
[2017-12-31 08:20] VITALS: BP 102/60
[2017-12-31 16:19] VITALS: BP 126/68
[2017-12-31] MEDS: BENZTROPINE MESYLATE 2 MG TABLET PO SCH (20:10)
[2017-12-31] MEDS: ATORVASTATIN CALCIUM 40 MG TABLET PO SCH (20:10)
[2017-12-31] MEDS: ZOLPIDEM TARTRATE 10 MG TABLET PO PRN (22:27)
[2018-01-01 01:16] VITALS: BP 123/85
[2018-01-01] MEDS: LORazepam 2 MG TABLET PO PRN ×2 (01:52→16:36)
[2018-01-01] MEDS: DOCUSATE SODIUM 250 MG CAPSULE PO SCH ×2 (08:10→16:35)
[2018-01-01] MEDS: OMEGA-3/DHA/EPA/FISH OIL 1,000 MG CAPSULE PO SCH (08:10)
[2018-01-01] MEDS: PANTOPRAZOLE SODIUM 40 MG DR TABLET PO SCH (08:10)
[2018-01-01] MEDS: CloZAPine 100 MG TABLET PO SCH ×2 (08:10→20:33)
[2018-01-01 09:15] VITALS: BP 126/70
[2018-01-01 16:07] VITALS: BP 130/67
[2018-01-01] MEDS: QUEtiapine FUMARATE 100 MG TABLET PO PRN ×2 (16:07→23:56)
[2018-01-01] MEDS: ATORVASTATIN CALCIUM 40 MG TABLET PO SCH (20:32)
[2018-01-01] MEDS: BENZTROPINE MESYLATE 2 MG TABLET PO SCH (20:32)
[2018-01-02 00:30] VITALS: BP 131/62
[2018-01-02] MEDS: CloZAPine 100 MG TABLET PO SCH ×2 (08:27→20:33)
[2018-01-02] MEDS: OMEGA-3/DHA/EPA/FISH OIL 1,000 MG CAPSULE PO SCH (08:28)
[2018-01-02] MEDS: PANTOPRAZOLE SODIUM 40 MG DR TABLET PO SCH (08:28)
[2018-01-02] MEDS: DOCUSATE SODIUM 250 MG CAPSULE PO SCH ×2 (08:28→16:34)
[2018-01-02 08:40] VITALS: BP 130/70
[2018-01-02 16:19] VITALS: BP 134/86
[2018-01-02] MEDS: ATORVASTATIN CALCIUM 40 MG TABLET PO SCH (20:33)
[2018-01-02] MEDS: BENZTROPINE MESYLATE 2 MG TABLET PO SCH (20:33)
[2018-01-03 02:39] VITALS: BP 114/61
[2018-01-03 08:26] VITALS: BP 118/68
[2018-01-03 08:31] LABS: BASOPHILS % (AUTO) 1.1 % (0.0-2.0); EOSINOPHILS % (AUTO) 3.8 % (1.0-6.0); HEMATOCRIT 39.2 % (36-46); LYMPHOCYTES % (AUTO) 43.3 % (22.0-44.0); MEAN CORPUSCULAR HEMOGLOBIN 28.8 pg (26.0-34.0); MEAN CORPUSCULAR HGB CONC 33.2 G/dL (31.0-37.0); MEAN CORPUSCULAR VOLUME 87 fL (80-100); MONOCYTES # (AUTO) 0.7 K/uL (0.1-1.0); MONOCYTES % (AUTO) 7.6 % (2.0-9.0); NEUTROPHILS # (AUTO) 4.1 K/uL (1.8-7.7); NEUTROPHILS % (AUTO) 44.2 % (40.0-70.0); PLATELET COUNT (AUTO) 278 K/uL (150-450); RED BLOOD CELL COUNT(AUTO) 4.52 MIL/uL (4.00-5.20); RED CELL DISTRIBUTION WIDTH 14.2 % (11.5-14.5)
[2018-01-03] MEDS: DOCUSATE SODIUM 250 MG CAPSULE PO SCH ×2 (08:33→16:35)
[2018-01-03] MEDS: CloZAPine 100 MG TABLET PO SCH ×2 (08:33→20:34)
[2018-01-03] MEDS: OMEGA-3/DHA/EPA/FISH OIL 1,000 MG CAPSULE PO SCH (08:33)
[2018-01-03] MEDS: PANTOPRAZOLE SODIUM 40 MG DR TABLET PO SCH (08:33)
[2018-01-03 16:05] VITALS: BP 123/76
[2018-01-03] MEDS: BENZTROPINE MESYLATE 2 MG TABLET PO SCH (20:33)
[2018-01-03] MEDS: ATORVASTATIN CALCIUM 40 MG TABLET PO SCH (20:34)
[2018-01-04 02:16] VITALS: BP 120/75
[2018-01-04] MEDS: DOCUSATE SODIUM 250 MG CAPSULE PO SCH ×2 (08:17→16:32)
[2018-01-04] MEDS: CloZAPine 100 MG TABLET PO SCH ×2 (08:17→20:38)
[2018-01-04] MEDS: PANTOPRAZOLE SODIUM 40 MG DR TABLET PO SCH (08:17)
[2018-01-04] MEDS: OMEGA-3/DHA/EPA/FISH OIL 1,000 MG CAPSULE PO SCH (08:18)
[2018-01-04 09:05] VITALS: BP 120/79
[2018-01-04 16:05] VITALS: BP 112/75
[2018-01-04] MEDS: ATORVASTATIN CALCIUM 40 MG TABLET PO SCH (20:38)
[2018-01-04] MEDS: BENZTROPINE MESYLATE 2 MG TABLET PO SCH (20:38)
[2018-01-05 06:53] VITALS: BP 110/74
[2018-01-05] MEDS: DOCUSATE SODIUM 250 MG CAPSULE PO SCH ×2 (08:03→16:03)
[2018-01-05] MEDS: PANTOPRAZOLE SODIUM 40 MG DR TABLET PO SCH (08:03)
[2018-01-05] MEDS: OMEGA-3/DHA/EPA/FISH OIL 1,000 MG CAPSULE PO SCH (08:03)
[2018-01-05] MEDS: CloZAPine 100 MG TABLET PO SCH ×2 (08:03→20:19)
[2018-01-05 08:34] VITALS: BP 116/60
[2018-01-05 16:10] VITALS: BP 138/83
[2018-01-05] MEDS: BENZTROPINE MESYLATE 2 MG TABLET PO SCH (20:19)
[2018-01-05] MEDS: ATORVASTATIN CALCIUM 40 MG TABLET PO SCH (20:19)
[2018-01-06 06:28] VITALS: BP 120/67
[2018-01-06] MEDS: PANTOPRAZOLE SODIUM 40 MG DR TABLET PO SCH (08:16)
[2018-01-06] MEDS: OMEGA-3/DHA/EPA/FISH OIL 1,000 MG CAPSULE PO SCH (08:16)
[2018-01-06] MEDS: DOCUSATE SODIUM 250 MG CAPSULE PO SCH ×2 (08:16→16:38)
[2018-01-06] MEDS: CloZAPine 100 MG TABLET PO SCH ×2 (08:16→20:38)
[2018-01-06] MEDS: MAGNESIUM CITRATE 300 ML ORAL SOLUTION PO PRN (08:19)
[2018-01-06 08:23] VITALS: BP 102/72
[2018-01-06 16:25] VITALS: BP 126/68
[2018-01-06] MEDS: ATORVASTATIN CALCIUM 40 MG TABLET PO SCH (21:00)
[2018-01-06] MEDS: BENZTROPINE MESYLATE 2 MG TABLET PO SCH (21:00)
[2018-01-07] VITALS: BP 112/85
[2018-01-07] MEDS: CloZAPine 100 MG TABLET PO SCH ×2 (08:12→20:33)
[2018-01-07] MEDS: PANTOPRAZOLE SODIUM 40 MG DR TABLET PO SCH (08:12)
[2018-01-07] MEDS: OMEGA-3/DHA/EPA/FISH OIL 1,000 MG CAPSULE PO SCH (08:12)
[2018-01-07] MEDS: DOCUSATE SODIUM 250 MG CAPSULE PO SCH ×2 (08:12→16:34)
[2018-01-07 08:29] VITALS: BP 105/61
[2018-01-07 16:30] VITALS: BP 137/76
[2018-01-07] MEDS: ATORVASTATIN CALCIUM 40 MG TABLET PO SCH (20:33)
[2018-01-07] MEDS: BENZTROPINE MESYLATE 2 MG TABLET PO SCH (20:33)
[2018-01-07] MEDS: QUEtiapine FUMARATE 100 MG TABLET PO PRN (22:34)
[2018-01-08] VITALS: BP 117/71
[2018-01-08] MEDS: PANTOPRAZOLE SODIUM 40 MG DR TABLET PO SCH (08:16)
[2018-01-08] MEDS: DOCUSATE SODIUM 250 MG CAPSULE PO SCH ×2 (08:17→16:31)
[2018-01-08] MEDS: OMEGA-3/DHA/EPA/FISH OIL 1,000 MG CAPSULE PO SCH (08:17)
[2018-01-08] MEDS: CloZAPine 100 MG TABLET PO SCH ×2 (08:17→20:34)
[2018-01-08 08:34] VITALS: BP 118/67
[2018-01-08 16:18] VITALS: BP 137/82
[2018-01-08] MEDS: BENZTROPINE MESYLATE 2 MG TABLET PO SCH (20:34)
[2018-01-08] MEDS: ATORVASTATIN CALCIUM 40 MG TABLET PO SCH (20:34)
[2018-01-09 01:11] VITALS: BP 110/66
[2018-01-09 08:16] VITALS: BP 105/71
[2018-01-09] MEDS: OMEGA-3/DHA/EPA/FISH OIL 1,000 MG CAPSULE PO SCH (08:46)
[2018-01-09] MEDS: DOCUSATE SODIUM 250 MG CAPSULE PO SCH ×2 (08:47→16:40)
[2018-01-09] MEDS: CloZAPine 100 MG TABLET PO SCH ×2 (08:47→20:37)
[2018-01-09] MEDS: PANTOPRAZOLE SODIUM 40 MG DR TABLET PO SCH (08:47)
[2018-01-09 16:19] VITALS: BP 125/72
[2018-01-09] MEDS: ATORVASTATIN CALCIUM 40 MG TABLET PO SCH (20:37)
[2018-01-09] MEDS: BENZTROPINE MESYLATE 2 MG TABLET PO SCH (20:37)
[2018-01-10 05:00] VITALS: BP 117/67
[2018-01-10 08:06] VITALS: BP 112/63
[2018-01-10 08:20] LABS: BASOPHILS % (AUTO) 0.5 % (0.0-2.0); EOSINOPHILS % (AUTO) 3.3 % (1.0-6.0); HEMATOCRIT 41.2 % (36-46); HEMOGLOBIN 13.7 g/dL (12.0-16.0); LYMPHOCYTES # (AUTO) 4.3 K/uL (1.0-4.8); LYMPHOCYTES % (AUTO) 42.9 % (22.0-44.0); MEAN CORPUSCULAR HEMOGLOBIN 29.1 pg (26.0-34.0); MEAN CORPUSCULAR HGB CONC 33.4 G/dL (31.0-37.0); MEAN CORPUSCULAR VOLUME 87 fL (80-100); MONOCYTES # (AUTO) 0.7 K/uL (0.1-1.0); MONOCYTES % (AUTO) 7.5 % (2.0-9.0); NEUTROPHILS # (AUTO) 4.6 K/uL (1.8-7.7); NEUTROPHILS % (AUTO) 45.8 % (40.0-70.0); PLATELET COUNT (AUTO) 307 K/uL (150-450); RED BLOOD CELL COUNT(AUTO) 4.73 MIL/uL (4.00-5.20); RED CELL DISTRIBUTION WIDTH 14.9 % (11.5-14.5)
[2018-01-10] MEDS: CloZAPine 100 MG TABLET PO SCH ×2 (08:24→20:31)
[2018-01-10] MEDS: PANTOPRAZOLE SODIUM 40 MG DR TABLET PO SCH (08:24)
[2018-01-10] MEDS: DOCUSATE SODIUM 250 MG CAPSULE PO SCH ×2 (08:24→16:32)
[2018-01-10] MEDS: OMEGA-3/DHA/EPA/FISH OIL 1,000 MG CAPSULE PO SCH (08:24)
[2018-01-10 16:23] VITALS: BP 113/70
[2018-01-10] MEDS: ATORVASTATIN CALCIUM 40 MG TABLET PO SCH (20:31)
[2018-01-10] MEDS: BENZTROPINE MESYLATE 2 MG TABLET PO SCH (20:31)
[2018-01-11] VITALS: BP 114/68
[2018-01-11 08:13] VITALS: BP 109/59
[2018-01-11] MEDS: DOCUSATE SODIUM 250 MG CAPSULE PO SCH ×2 (08:18→16:31)
[2018-01-11] MEDS: PANTOPRAZOLE SODIUM 40 MG DR TABLET PO SCH (08:18)
[2018-01-11] MEDS: OMEGA-3/DHA/EPA/FISH OIL 1,000 MG CAPSULE PO SCH (08:18)
[2018-01-11] MEDS: CloZAPine 100 MG TABLET PO SCH ×2 (08:18→20:38)
[2018-01-11 16:17] VITALS: BP 102/70
[2018-01-11] MEDS: BENZTROPINE MESYLATE 2 MG TABLET PO SCH (20:37)
[2018-01-11] MEDS: ATORVASTATIN CALCIUM 40 MG TABLET PO SCH (20:37)
[2018-01-12 00:05] VITALS: BP 118/85
[2018-01-12] MEDS: PANTOPRAZOLE SODIUM 40 MG DR TABLET PO SCH (08:13)
[2018-01-12] MEDS: CloZAPine 100 MG TABLET PO SCH ×2 (08:13→20:31)
[2018-01-12] MEDS: OMEGA-3/DHA/EPA/FISH OIL 1,000 MG CAPSULE PO SCH (08:13)
[2018-01-12] MEDS: DOCUSATE SODIUM 250 MG CAPSULE PO SCH ×2 (08:13→16:42)
[2018-01-12 08:40] VITALS: BP 128/72
[2018-01-12 17:53] VITALS: BP 131/73
[2018-01-12] MEDS: ATORVASTATIN CALCIUM 40 MG TABLET PO SCH (20:31)
[2018-01-12] MEDS: BENZTROPINE MESYLATE 2 MG TABLET PO SCH (20:31)
[2018-01-13 06:27] VITALS: BP 137/79
[2018-01-13] MEDS: CloZAPine 100 MG TABLET PO SCH ×2 (08:26→20:14)
[2018-01-13] MEDS: PANTOPRAZOLE SODIUM 40 MG DR TABLET PO SCH (08:26)
[2018-01-13] MEDS: OMEGA-3/DHA/EPA/FISH OIL 1,000 MG CAPSULE PO SCH (08:26)
[2018-01-13] MEDS: DOCUSATE SODIUM 250 MG CAPSULE PO SCH ×2 (08:26→16:57)
[2018-01-13 08:27] VITALS: BP 135/79
[2018-01-13 16:10] VITALS: BP 129/84
[2018-01-13] MEDS: ATORVASTATIN CALCIUM 40 MG TABLET PO SCH (20:14)
[2018-01-13] MEDS: BENZTROPINE MESYLATE 2 MG TABLET PO SCH (20:14)
[2018-01-14] VITALS: BP 106/70
[2018-01-14] MEDS: QUEtiapine FUMARATE 100 MG TABLET PO PRN (00:03)
[2018-01-14 08:34] VITALS: BP 111/72
[2018-01-14] MEDS: MAGNESIUM CITRATE 300 ML ORAL SOLUTION PO PRN (08:34)
[2018-01-14] MEDS: CloZAPine 100 MG TABLET PO SCH ×2 (08:34→20:19)
[2018-01-14] MEDS: DOCUSATE SODIUM 250 MG CAPSULE PO SCH ×2 (08:34→16:51)
[2018-01-14] MEDS: OMEGA-3/DHA/EPA/FISH OIL 1,000 MG CAPSULE PO SCH (08:34)
[2018-01-14] MEDS: PANTOPRAZOLE SODIUM 40 MG DR TABLET PO SCH (08:34)
[2018-01-14 16:00] VITALS: BP 117/69
[2018-01-14] MEDS: BENZTROPINE MESYLATE 2 MG TABLET PO SCH (20:19)
[2018-01-14] MEDS: ATORVASTATIN CALCIUM 40 MG TABLET PO SCH (20:19)
[2018-01-15 01:46] VITALS: BP 122/60
[2018-01-15 08:25] VITALS: BP 120/65
[2018-01-15] MEDS: OMEGA-3/DHA/EPA/FISH OIL 1,000 MG CAPSULE PO SCH (08:50)
[2018-01-15] MEDS: CloZAPine 100 MG TABLET PO SCH ×2 (08:50→20:32)
[2018-01-15] MEDS: DOCUSATE SODIUM 250 MG CAPSULE PO SCH ×2 (08:50→16:34)
[2018-01-15] MEDS: PANTOPRAZOLE SODIUM 40 MG DR TABLET PO SCH (08:50)
[2018-01-15 16:15] VITALS: BP 106/63
[2018-01-15] MEDS: ATORVASTATIN CALCIUM 40 MG TABLET PO SCH (20:32)
[2018-01-15] MEDS: BENZTROPINE MESYLATE 2 MG TABLET PO SCH (20:32)
[2018-01-16 01:52] VITALS: BP 112/66
[2018-01-16 08:30] VITALS: BP 129/67
[2018-01-16] MEDS: PANTOPRAZOLE SODIUM 40 MG DR TABLET PO SCH (09:10)
[2018-01-16] MEDS: OMEGA-3/DHA/EPA/FISH OIL 1,000 MG CAPSULE PO SCH (09:10)
[2018-01-16] MEDS: CloZAPine 100 MG TABLET PO SCH ×2 (09:10→20:34)
[2018-01-16] MEDS: DOCUSATE SODIUM 250 MG CAPSULE PO SCH ×2 (09:10→16:44)
[2018-01-16 16:11] VITALS: BP 130/73
[2018-01-16] MEDS: BENZTROPINE MESYLATE 2 MG TABLET PO SCH (20:34)
[2018-01-16] MEDS: ATORVASTATIN CALCIUM 40 MG TABLET PO SCH (20:34)
[2018-01-17 00:11] VITALS: BP 121/66
[2018-01-17] MEDS: QUEtiapine FUMARATE 100 MG TABLET PO PRN (00:50)
[2018-01-17 08:34] LABS: BASOPHILS % (AUTO) 0.7 % (0.0-2.0); EOSINOPHILS % (AUTO) 3.9 % (1.0-6.0); HEMATOCRIT 37.6 % (36-46); HEMOGLOBIN 12.7 g/dL (12.0-16.0); LYMPHOCYTES # (AUTO) 3.9 K/uL (1.0-4.8); LYMPHOCYTES % (AUTO) 44.6 % (22.0-44.0); MEAN CORPUSCULAR HEMOGLOBIN 29.4 pg (26.0-34.0); MEAN CORPUSCULAR HGB CONC 33.8 G/dL (31.0-37.0); MEAN CORPUSCULAR VOLUME 87 fL (80-100); MONOCYTES # (AUTO) 0.6 K/uL (0.1-1.0); MONOCYTES % (AUTO) 6.8 % (2.0-9.0); NEUTROPHILS # (AUTO) 3.8 K/uL (1.8-7.7); PLATELET COUNT (AUTO) 264 K/uL (150-450); RED BLOOD CELL COUNT(AUTO) 4.33 MIL/uL (4.00-5.20); RED CELL DISTRIBUTION WIDTH 14.5 % (11.5-14.5)
[2018-01-17] MEDS: CloZAPine 100 MG TABLET PO SCH ×2 (08:38→20:36)
[2018-01-17] MEDS: PANTOPRAZOLE SODIUM 40 MG DR TABLET PO SCH (08:38)
[2018-01-17] MEDS: OMEGA-3/DHA/EPA/FISH OIL 1,000 MG CAPSULE PO SCH (08:38)
[2018-01-17] MEDS: DOCUSATE SODIUM 250 MG CAPSULE PO SCH ×2 (08:38→16:45)
[2018-01-17 08:49] VITALS: BP 120/83
[2018-01-17 16:24] VITALS: BP 117/70
[2018-01-17] MEDS: BENZTROPINE MESYLATE 2 MG TABLET PO SCH (20:35)
[2018-01-17] MEDS: ATORVASTATIN CALCIUM 40 MG TABLET PO SCH (20:35)
[2018-01-18 06:11] VITALS: BP 135/78
[2018-01-18 08:00] VITALS: BP 114/68
[2018-01-18] MEDS: PANTOPRAZOLE SODIUM 40 MG DR TABLET PO SCH (08:17)
[2018-01-18] MEDS: OMEGA-3/DHA/EPA/FISH OIL 1,000 MG CAPSULE PO SCH (08:17)
[2018-01-18] MEDS: DOCUSATE SODIUM 250 MG CAPSULE PO SCH ×2 (08:17→16:15)
[2018-01-18] MEDS: CloZAPine 100 MG TABLET PO SCH ×2 (08:17→20:27)
[2018-01-18 16:17] VITALS: BP 116/76
[2018-01-18] MEDS: ATORVASTATIN CALCIUM 40 MG TABLET PO SCH (20:27)
[2018-01-18] MEDS: BENZTROPINE MESYLATE 2 MG TABLET PO SCH (20:27)
[2018-01-19 06:32] VITALS: BP 118/75
[2018-01-19 08:28] VITALS: BP 110/67
[2018-01-19] MEDS: PANTOPRAZOLE SODIUM 40 MG DR TABLET PO SCH (08:50)
[2018-01-19] MEDS: DOCUSATE SODIUM 250 MG CAPSULE PO SCH ×2 (08:50→16:10)
[2018-01-19] MEDS: CloZAPine 100 MG TABLET PO SCH ×2 (08:50→20:12)
[2018-01-19] MEDS: OMEGA-3/DHA/EPA/FISH OIL 1,000 MG CAPSULE PO SCH (08:50)
[2018-01-19 16:04] VITALS: BP 110/69
[2018-01-19] MEDS: ATORVASTATIN CALCIUM 40 MG TABLET PO SCH (20:12)
[2018-01-19] MEDS: BENZTROPINE MESYLATE 2 MG TABLET PO SCH (20:12)
[2018-01-20 01:01] VITALS: BP 130/79
[2018-01-20 08:17] VITALS: BP 117/63
[2018-01-20] MEDS: DOCUSATE SODIUM 250 MG CAPSULE PO SCH ×2 (08:31→16:41)
[2018-01-20] MEDS: CloZAPine 100 MG TABLET PO SCH ×2 (08:31→20:36)
[2018-01-20] MEDS: OMEGA-3/DHA/EPA/FISH OIL 1,000 MG CAPSULE PO SCH (08:31)
[2018-01-20] MEDS: PANTOPRAZOLE SODIUM 40 MG DR TABLET PO SCH (08:31)
[2018-01-20 16:07] VITALS: BP 110/63
[2018-01-20] MEDS: BENZTROPINE MESYLATE 2 MG TABLET PO SCH (20:36)
[2018-01-20] MEDS: ATORVASTATIN CALCIUM 40 MG TABLET PO SCH (20:36)
[2018-01-21 00:17] VITALS: BP 107/61
[2018-01-21] MEDS: DOCUSATE SODIUM 250 MG CAPSULE PO SCH ×2 (08:04→16:27)
[2018-01-21] MEDS: PANTOPRAZOLE SODIUM 40 MG DR TABLET PO SCH (08:04)
[2018-01-21] MEDS: OMEGA-3/DHA/EPA/FISH OIL 1,000 MG CAPSULE PO SCH (08:04)
[2018-01-21] MEDS: CloZAPine 100 MG TABLET PO SCH ×2 (08:05→20:36)
[2018-01-21 08:23] VITALS: BP 121/71
[2018-01-21 16:04] VITALS: BP 106/62
[2018-01-21] MEDS: ATORVASTATIN CALCIUM 40 MG TABLET PO SCH (20:36)
[2018-01-21] MEDS: BENZTROPINE MESYLATE 2 MG TABLET PO SCH (20:36)
[2018-01-22] VITALS: BP 112/60
[2018-01-22] MEDS: MAG HYDROX/AL HYDROX/SIMETH ES 30 ML SUSPENSION UDCUP PO PRN (00:52)
[2018-01-22] MEDS: OMEGA-3/DHA/EPA/FISH OIL 1,000 MG CAPSULE PO SCH (08:31)
[2018-01-22] MEDS: PANTOPRAZOLE SODIUM 40 MG DR TABLET PO SCH (08:31)
[2018-01-22] MEDS: DOCUSATE SODIUM 250 MG CAPSULE PO SCH ×2 (08:31→16:51)
[2018-01-22] MEDS: CloZAPine 100 MG TABLET PO SCH ×2 (08:31→21:33)
[2018-01-22 08:33] VITALS: BP 118/60
[2018-01-22 16:09] VITALS: BP 135/82
[2018-01-22] MEDS: BENZTROPINE MESYLATE 2 MG TABLET PO SCH (21:33)
[2018-01-22] MEDS: ATORVASTATIN CALCIUM 40 MG TABLET PO SCH (21:33)
[2018-01-23 00:06] VITALS: BP 138/69
[2018-01-23] MEDS: DOCUSATE SODIUM 250 MG CAPSULE PO SCH ×2 (08:20→16:37)
[2018-01-23] MEDS: PANTOPRAZOLE SODIUM 40 MG DR TABLET PO SCH (08:20)
[2018-01-23] MEDS: OMEGA-3/DHA/EPA/FISH OIL 1,000 MG CAPSULE PO SCH (08:20)
[2018-01-23] MEDS: CloZAPine 100 MG TABLET PO SCH ×2 (08:20→20:32)
[2018-01-23 08:35] VITALS: BP 123/69
[2018-01-23 16:10] VITALS: BP 116/61
[2018-01-23] MEDS: BENZTROPINE MESYLATE 2 MG TABLET PO SCH (20:32)
[2018-01-23] MEDS: ATORVASTATIN CALCIUM 40 MG TABLET PO SCH (20:32)
[2018-01-24 06:22] VITALS: BP 119/78
[2018-01-24 08:10] VITALS: BP 113/76
[2018-01-24] MEDS: CloZAPine 100 MG TABLET PO SCH ×2 (08:22→20:35)
[2018-01-24] MEDS: PANTOPRAZOLE SODIUM 40 MG DR TABLET PO SCH (08:22)
[2018-01-24] MEDS: DOCUSATE SODIUM 250 MG CAPSULE PO SCH ×2 (08:23→16:20)
[2018-01-24] MEDS: OMEGA-3/DHA/EPA/FISH OIL 1,000 MG CAPSULE PO SCH (08:23)
[2018-01-24 09:42] LABS: BASOPHILS % (AUTO) 0.4 % (0.0-2.0); EOSINOPHILS % (AUTO) 3.5 % (1.0-6.0); HEMATOCRIT 38.6 % (36-46); LYMPHOCYTES # (AUTO) 4.2 K/uL (1.0-4.8); LYMPHOCYTES % (AUTO) 41.2 % (22.0-44.0); MEAN CORPUSCULAR HEMOGLOBIN 29.3 pg (26.0-34.0); MEAN CORPUSCULAR HGB CONC 33.6 G/dL (31.0-37.0); MEAN CORPUSCULAR VOLUME 87 fL (80-100); MONOCYTES # (AUTO) 0.8 K/uL (0.1-1.0); MONOCYTES % (AUTO) 7.8 % (2.0-9.0); NEUTROPHILS # (AUTO) 4.8 K/uL (1.8-7.7); NEUTROPHILS % (AUTO) 47.1 % (40.0-70.0); PLATELET COUNT (AUTO) 278 K/uL (150-450); RED BLOOD CELL COUNT(AUTO) 4.43 MIL/uL (4.00-5.20); RED CELL DISTRIBUTION WIDTH 14.5 % (11.5-14.5)
[2018-01-24 16:14] VITALS: BP 116/61
[2018-01-24] MEDS: ATORVASTATIN CALCIUM 40 MG TABLET PO SCH (20:34)
[2018-01-24] MEDS: BENZTROPINE MESYLATE 2 MG TABLET PO SCH (20:34)
[2018-01-25 00:36] VITALS: BP 123/68
[2018-01-25 08:00] VITALS: BP 120/87
[2018-01-25] MEDS: PANTOPRAZOLE SODIUM 40 MG DR TABLET PO SCH (08:00)
[2018-01-25] MEDS: DOCUSATE SODIUM 250 MG CAPSULE PO SCH ×2 (08:00→16:37)
[2018-01-25] MEDS: OMEGA-3/DHA/EPA/FISH OIL 1,000 MG CAPSULE PO SCH (08:00)
[2018-01-25] MEDS: CloZAPine 100 MG TABLET PO SCH ×2 (08:00→20:35)
[2018-01-25 17:46] VITALS: BP 127/79
[2018-01-25] MEDS: ATORVASTATIN CALCIUM 40 MG TABLET PO SCH (20:35)
[2018-01-25] MEDS: BENZTROPINE MESYLATE 2 MG TABLET PO SCH (20:35)
[2018-01-26 00:55] VITALS: BP 119/56
[2018-01-26] MEDS: OMEGA-3/DHA/EPA/FISH OIL 1,000 MG CAPSULE PO SCH (08:20)
[2018-01-26] MEDS: CloZAPine 100 MG TABLET PO SCH ×2 (08:20→20:35)
[2018-01-26] MEDS: PANTOPRAZOLE SODIUM 40 MG DR TABLET PO SCH (08:20)
[2018-01-26] MEDS: DOCUSATE SODIUM 250 MG CAPSULE PO SCH ×2 (08:20→16:35)
[2018-01-26 08:43] VITALS: BP 120/66
[2018-01-26 17:17] VITALS: BP 115/65
[2018-01-26] MEDS: ATORVASTATIN CALCIUM 40 MG TABLET PO SCH (20:35)
[2018-01-26] MEDS: BENZTROPINE MESYLATE 2 MG TABLET PO SCH (20:35)
[2018-01-27 06:18] VITALS: BP 113/60
[2018-01-27 08:00] VITALS: BP 112/67
[2018-01-27] MEDS: OMEGA-3/DHA/EPA/FISH OIL 1,000 MG CAPSULE PO SCH (08:27)
[2018-01-27] MEDS: DOCUSATE SODIUM 250 MG CAPSULE PO SCH ×2 (08:27→16:33)
[2018-01-27] MEDS: PANTOPRAZOLE SODIUM 40 MG DR TABLET PO SCH (08:28)
[2018-01-27] MEDS: CloZAPine 100 MG TABLET PO SCH ×2 (08:28→20:06)
[2018-01-27 16:14] VITALS: BP 103/62
[2018-01-27] MEDS: ATORVASTATIN CALCIUM 40 MG TABLET PO SCH (20:06)
[2018-01-27] MEDS: BENZTROPINE MESYLATE 2 MG TABLET PO SCH (20:06)
[2018-01-28 01:50] VITALS: BP 119/60
[2018-01-28 08:35] VITALS: BP 102/62
[2018-01-28] MEDS: PANTOPRAZOLE SODIUM 40 MG DR TABLET PO SCH (08:45)
[2018-01-28] MEDS: CloZAPine 100 MG TABLET PO SCH ×2 (08:45→20:18)
[2018-01-28] MEDS: OMEGA-3/DHA/EPA/FISH OIL 1,000 MG CAPSULE PO SCH (08:45)
[2018-01-28] MEDS: DOCUSATE SODIUM 250 MG CAPSULE PO SCH ×2 (08:45→16:17)
[2018-01-28 16:10] VITALS: BP 115/63
[2018-01-28] MEDS: BENZTROPINE MESYLATE 2 MG TABLET PO SCH (20:18)
[2018-01-28] MEDS: ATORVASTATIN CALCIUM 40 MG TABLET PO SCH (20:18)
[2018-01-29 00:27] VITALS: BP 123/62
[2018-01-29 08:19] VITALS: BP 117/67
[2018-01-29] MEDS: PANTOPRAZOLE SODIUM 40 MG DR TABLET PO SCH (08:24)
[2018-01-29] MEDS: DOCUSATE SODIUM 250 MG CAPSULE PO SCH ×2 (08:24→16:38)
[2018-01-29] MEDS: OMEGA-3/DHA/EPA/FISH OIL 1,000 MG CAPSULE PO SCH (08:24)
[2018-01-29] MEDS: CloZAPine 100 MG TABLET PO SCH ×2 (08:25→20:36)
[2018-01-29 16:06] VITALS: BP 104/66
[2018-01-29] MEDS: BENZTROPINE MESYLATE 2 MG TABLET PO SCH (20:36)
[2018-01-29] MEDS: ATORVASTATIN CALCIUM 40 MG TABLET PO SCH (20:37)
[2018-01-30 00:55] VITALS: BP 123/60
[2018-01-30] MEDS: OMEGA-3/DHA/EPA/FISH OIL 1,000 MG CAPSULE PO SCH (08:13)
[2018-01-30] MEDS: CloZAPine 100 MG TABLET PO SCH ×2 (08:13→20:39)
[2018-01-30] MEDS: DOCUSATE SODIUM 250 MG CAPSULE PO SCH ×2 (08:13→16:35)
[2018-01-30] MEDS: PANTOPRAZOLE SODIUM 40 MG DR TABLET PO SCH (08:13)
[2018-01-30 08:22] VITALS: BP 106/68
[2018-01-30] MEDS: MAGNESIUM CITRATE 300 ML ORAL SOLUTION PO PRN (08:55)
[2018-01-30 16:27] VITALS: BP 125/75
[2018-01-30] MEDS: ATORVASTATIN CALCIUM 40 MG TABLET PO SCH (20:39)
[2018-01-30] MEDS: BENZTROPINE MESYLATE 2 MG TABLET PO SCH (20:39)
[2018-01-31 01:54] VITALS: BP 106/67
[2018-01-31] MEDS: DOCUSATE SODIUM 250 MG CAPSULE PO SCH ×2 (08:25→16:33)
[2018-01-31] MEDS: OMEGA-3/DHA/EPA/FISH OIL 1,000 MG CAPSULE PO SCH (08:25)
[2018-01-31] MEDS: CloZAPine 100 MG TABLET PO SCH ×2 (08:25→20:42)
[2018-01-31] MEDS: PANTOPRAZOLE SODIUM 40 MG DR TABLET PO SCH (08:25)
[2018-01-31 08:34] VITALS: BP 148/69
[2018-01-31 09:46] LABS: BASOPHILS % (AUTO) 0.7 % (0.0-2.0); EOSINOPHILS % (AUTO) 3.7 % (1.0-6.0); HEMATOCRIT 38.7 % (36-46); HEMOGLOBIN 12.9 g/dL (12.0-16.0); LYMPHOCYTES # (AUTO) 3.4 K/uL (1.0-4.8); LYMPHOCYTES % (AUTO) 38.9 % (22.0-44.0); MEAN CORPUSCULAR HEMOGLOBIN 29.2 pg (26.0-34.0); MEAN CORPUSCULAR HGB CONC 33.3 G/dL (31.0-37.0); MEAN CORPUSCULAR VOLUME 88 fL (80-100); MONOCYTES # (AUTO) 0.5 K/uL (0.1-1.0); MONOCYTES % (AUTO) 5.9 % (2.0-9.0); NEUTROPHILS # (AUTO) 4.5 K/uL (1.8-7.7); NEUTROPHILS % (AUTO) 50.8 % (40.0-70.0); PLATELET COUNT (AUTO) 279 K/uL (150-450); RED BLOOD CELL COUNT(AUTO) 4.41 MIL/uL (4.00-5.20); RED CELL DISTRIBUTION WIDTH 14.8 % (11.5-14.5)
[2018-01-31 16:15] VITALS: BP 125/73
[2018-01-31] MEDS: ATORVASTATIN CALCIUM 40 MG TABLET PO SCH (20:42)
[2018-01-31] MEDS: BENZTROPINE MESYLATE 2 MG TABLET PO SCH (20:42)
[2018-02-01] VITALS: BP 124/76
[2018-02-01] MEDS: DOCUSATE SODIUM 250 MG CAPSULE PO SCH ×2 (08:00→16:43)
[2018-02-01] MEDS: OMEGA-3/DHA/EPA/FISH OIL 1,000 MG CAPSULE PO SCH (08:00)
[2018-02-01] MEDS: PANTOPRAZOLE SODIUM 40 MG DR TABLET PO SCH (08:00)
[2018-02-01] MEDS: CloZAPine 100 MG TABLET PO SCH ×2 (08:01→20:37)
[2018-02-01 08:44] VITALS: BP 116/80
[2018-02-01 16:17] VITALS: BP 130/62
[2018-02-01] MEDS: BENZTROPINE MESYLATE 2 MG TABLET PO SCH (20:36)
[2018-02-01] MEDS: ATORVASTATIN CALCIUM 40 MG TABLET PO SCH (20:37)
[2018-02-02 05:54] VITALS: BP 125/73
[2018-02-02] MEDS: OMEGA-3/DHA/EPA/FISH OIL 1,000 MG CAPSULE PO SCH (08:28)
[2018-02-02] MEDS: DOCUSATE SODIUM 250 MG CAPSULE PO SCH ×2 (08:28→16:10)
[2018-02-02] MEDS: PANTOPRAZOLE SODIUM 40 MG DR TABLET PO SCH (08:28)
[2018-02-02] MEDS: CloZAPine 100 MG TABLET PO SCH ×2 (08:28→20:10)
[2018-02-02 08:53] VITALS: BP 110/60
[2018-02-02 16:13] VITALS: BP 116/65
[2018-02-02] MEDS: BENZTROPINE MESYLATE 2 MG TABLET PO SCH (20:10)
[2018-02-02] MEDS: ATORVASTATIN CALCIUM 40 MG TABLET PO SCH (20:10)
[2018-02-03 06:09] VITALS: BP 134/74
[2018-02-03] MEDS: CloZAPine 100 MG TABLET PO SCH ×2 (08:04→20:11)
[2018-02-03] MEDS: DOCUSATE SODIUM 250 MG CAPSULE PO SCH ×2 (08:04→16:09)
[2018-02-03] MEDS: OMEGA-3/DHA/EPA/FISH OIL 1,000 MG CAPSULE PO SCH (08:05)
[2018-02-03] MEDS: PANTOPRAZOLE SODIUM 40 MG DR TABLET PO SCH (08:05)
[2018-02-03 08:31] VITALS: BP 124/60
[2018-02-03 17:17] VITALS: BP 109/63
[2018-02-03] MEDS: ATORVASTATIN CALCIUM 40 MG TABLET PO SCH (20:10)
[2018-02-03] MEDS: BENZTROPINE MESYLATE 2 MG TABLET PO SCH (20:11)
[2018-02-04 00:07] VITALS: BP 110/68
[2018-02-04 08:23] VITALS: BP 117/86
[2018-02-04] MEDS: DOCUSATE SODIUM 250 MG CAPSULE PO SCH ×2 (08:40→16:17)
[2018-02-04] MEDS: OMEGA-3/DHA/EPA/FISH OIL 1,000 MG CAPSULE PO SCH (08:40)
[2018-02-04] MEDS: PANTOPRAZOLE SODIUM 40 MG DR TABLET PO SCH (08:40)
[2018-02-04] MEDS: CloZAPine 100 MG TABLET PO SCH ×2 (08:41→20:20)
[2018-02-04 16:12] VITALS: BP 107/66
[2018-02-04] MEDS: ATORVASTATIN CALCIUM 40 MG TABLET PO SCH (20:20)
[2018-02-04] MEDS: BENZTROPINE MESYLATE 2 MG TABLET PO SCH (20:20)
[2018-02-05] VITALS: BP 117/72
[2018-02-05 08:42] VITALS: BP 107/66
[2018-02-05] MEDS: DOCUSATE SODIUM 250 MG CAPSULE PO SCH ×2 (10:05→17:12)
[2018-02-05] MEDS: PANTOPRAZOLE SODIUM 40 MG DR TABLET PO SCH (10:05)
[2018-02-05] MEDS: OMEGA-3/DHA/EPA/FISH OIL 1,000 MG CAPSULE PO SCH (10:05)
[2018-02-05] MEDS: CloZAPine 100 MG TABLET PO SCH ×2 (10:05→20:29)
[2018-02-05 16:25] VITALS: BP 114/66
[2018-02-05] MEDS: ATORVASTATIN CALCIUM 40 MG TABLET PO SCH (20:29)
[2018-02-05] MEDS: BENZTROPINE MESYLATE 2 MG TABLET PO SCH (20:29)
[2018-02-06 00:12] VITALS: BP 115/68
[2018-02-06] MEDS: DOCUSATE SODIUM 250 MG CAPSULE PO SCH ×2 (08:14→16:05)
[2018-02-06] MEDS: CloZAPine 100 MG TABLET PO SCH ×2 (08:15→20:24)
[2018-02-06] MEDS: OMEGA-3/DHA/EPA/FISH OIL 1,000 MG CAPSULE PO SCH (08:15)
[2018-02-06] MEDS: PANTOPRAZOLE SODIUM 40 MG DR TABLET PO SCH (08:15)
[2018-02-06 08:40] VITALS: BP 124/72
[2018-02-06 16:13] VITALS: BP 124/71
[2018-02-06] MEDS: BENZTROPINE MESYLATE 2 MG TABLET PO SCH (20:24)
[2018-02-06] MEDS: ATORVASTATIN CALCIUM 40 MG TABLET PO SCH (20:24)
[2018-02-07 01:23] VITALS: BP 102/63
[2018-02-07 08:00] VITALS: BP 108/75
[2018-02-07] MEDS: CloZAPine 100 MG TABLET PO SCH ×2 (08:31→20:16)
[2018-02-07] MEDS: OMEGA-3/DHA/EPA/FISH OIL 1,000 MG CAPSULE PO SCH (08:31)
[2018-02-07] MEDS: DOCUSATE SODIUM 250 MG CAPSULE PO SCH ×2 (08:31→16:38)
[2018-02-07] MEDS: PANTOPRAZOLE SODIUM 40 MG DR TABLET PO SCH (08:31)
[2018-02-07 08:56] LABS: BASOPHILS % (AUTO) 0.7 % (0.0-2.0); EOSINOPHILS % (AUTO) 3.3 % (1.0-6.0); HEMATOCRIT 37.5 % (36-46); HEMOGLOBIN 12.6 g/dL (12.0-16.0); LYMPHOCYTES # (AUTO) 3.4 K/uL (1.0-4.8); LYMPHOCYTES % (AUTO) 39.1 % (22.0-44.0); MEAN CORPUSCULAR HEMOGLOBIN 29.3 pg (26.0-34.0); MEAN CORPUSCULAR HGB CONC 33.5 G/dL (31.0-37.0); MEAN CORPUSCULAR VOLUME 88 fL (80-100); MONOCYTES # (AUTO) 0.7 K/uL (0.1-1.0); MONOCYTES % (AUTO) 7.9 % (2.0-9.0); NEUTROPHILS # (AUTO) 4.2 K/uL (1.8-7.7); PLATELET COUNT (AUTO) 269 K/uL (150-450); RED BLOOD CELL COUNT(AUTO) 4.28 MIL/uL (4.00-5.20); RED CELL DISTRIBUTION WIDTH 14.2 % (11.5-14.5)
[2018-02-07 16:28] VITALS: BP 112/69
[2018-02-07] MEDS: ATORVASTATIN CALCIUM 40 MG TABLET PO SCH (20:16)
[2018-02-07] MEDS: BENZTROPINE MESYLATE 2 MG TABLET PO SCH (20:16)
[2018-02-08 02:38] VITALS: BP 122/66
[2018-02-08] MEDS: DOCUSATE SODIUM 250 MG CAPSULE PO SCH ×2 (08:04→16:13)
[2018-02-08] MEDS: PANTOPRAZOLE SODIUM 40 MG DR TABLET PO SCH (08:04)
[2018-02-08] MEDS: OMEGA-3/DHA/EPA/FISH OIL 1,000 MG CAPSULE PO SCH (08:04)
[2018-02-08] MEDS: CloZAPine 100 MG TABLET PO SCH ×2 (08:04→20:29)
[2018-02-08 08:15] VITALS: BP 133/75
[2018-02-08 16:04] VITALS: BP 129/86
[2018-02-08] MEDS: ATORVASTATIN CALCIUM 40 MG TABLET PO SCH (20:28)
[2018-02-08] MEDS: BENZTROPINE MESYLATE 2 MG TABLET PO SCH (20:28)
[2018-02-08] MEDS: QUEtiapine FUMARATE 100 MG TABLET PO PRN (21:06)
[2018-02-09 01:30] VITALS: BP 130/79
[2018-02-09 06:15] VITALS: BP 126/86
[2018-02-09] MEDS: LORazepam 2 MG TABLET PO PRN ×2 (06:52→21:37)
[2018-02-09 08:26] VITALS: BP 106/60
[2018-02-09] MEDS: PANTOPRAZOLE SODIUM 40 MG DR TABLET PO SCH (09:15)
[2018-02-09] MEDS: DOCUSATE SODIUM 250 MG CAPSULE PO SCH ×2 (09:15→16:18)
[2018-02-09] MEDS: OMEGA-3/DHA/EPA/FISH OIL 1,000 MG CAPSULE PO SCH (09:15)
[2018-02-09] MEDS: CloZAPine 100 MG TABLET PO SCH ×2 (09:16→20:31)
[2018-02-09 16:30] VITALS: BP 124/88
[2018-02-09] MEDS: BENZTROPINE MESYLATE 2 MG TABLET PO SCH (20:31)
[2018-02-09] MEDS: ATORVASTATIN CALCIUM 40 MG TABLET PO SCH (20:32)
[2018-02-10 06:52] VITALS: BP 127/64
[2018-02-10 08:04] LABS: APPEARANCE,URINE CLEAR (CLEAR); BILIRUBIN,URINE NEGATIVE (NEGATIVE); GLUCOSE, URINE (UA) NEGATIVE (NEGATIVE); KETONES,URINE NEGATIVE (NEGATIVE); LEUKOCYTE ESTERASE ,URINE NEGATIVE (NEGATIVE); NITRATE,URINE NEGATIVE (NEGATIVE); OCCULT BLOOD,URINE TRACE (NEGATIVE); PH,URINE 5.5 (5.0-8.0); PROTEIN,URINE NEGATIVE (NEGATIVE); UROBILINOGEN,URINE 0.2 mg/dL (<=1.0)
[2018-02-10 08:23] LABS: BACTERIA,URINE Few /HPF (None Seen); CALCIUM OXALATE CRYSTALS,UR Few /LPF (None Seen); RBC,URINE 0-2 /HPF (0-2); SQUAMOUS EPITHELIAL CELL,UR Moderate /LPF (None Seen); WBC,URINE None Seen /HPF (0-5)
[2018-02-10 08:30] VITALS: BP 128/69
[2018-02-10] MEDS: OMEGA-3/DHA/EPA/FISH OIL 1,000 MG CAPSULE PO SCH (08:31)
[2018-02-10] MEDS: DOCUSATE SODIUM 250 MG CAPSULE PO SCH ×2 (08:31→16:36)
[2018-02-10] MEDS: CloZAPine 100 MG TABLET PO SCH ×2 (08:31→20:10)
[2018-02-10] MEDS: PANTOPRAZOLE SODIUM 40 MG DR TABLET PO SCH (08:31)
[2018-02-10 16:25] VITALS: BP 128/77
[2018-02-10] MEDS: BENZTROPINE MESYLATE 2 MG TABLET PO SCH (20:10)
[2018-02-10] MEDS: ATORVASTATIN CALCIUM 40 MG TABLET PO SCH (20:10)
[2018-02-11 06:36] VITALS: BP 103/65
[2018-02-11 08:37] VITALS: BP 117/68
[2018-02-11] MEDS: CloZAPine 100 MG TABLET PO SCH ×2 (09:03→20:41)
[2018-02-11] MEDS: OMEGA-3/DHA/EPA/FISH OIL 1,000 MG CAPSULE PO SCH (09:03)
[2018-02-11] MEDS: DOCUSATE SODIUM 250 MG CAPSULE PO SCH ×2 (09:03→16:26)
[2018-02-11] MEDS: PANTOPRAZOLE SODIUM 40 MG DR TABLET PO SCH (09:04)
[2018-02-11 16:26] VITALS: BP 112/75
[2018-02-11] MEDS: ATORVASTATIN CALCIUM 40 MG TABLET PO SCH (20:41)
[2018-02-11] MEDS: BENZTROPINE MESYLATE 2 MG TABLET PO SCH (20:41)
[2018-02-12 06:37] VITALS: BP 110/70
[2018-02-12 08:30] VITALS: BP 114/69
[2018-02-12] MEDS: DOCUSATE SODIUM 250 MG CAPSULE PO SCH ×2 (09:38→16:16)
[2018-02-12] MEDS: CloZAPine 100 MG TABLET PO SCH ×2 (09:38→20:29)
[2018-02-12] MEDS: PANTOPRAZOLE SODIUM 40 MG DR TABLET PO SCH (09:38)
[2018-02-12] MEDS: OMEGA-3/DHA/EPA/FISH OIL 1,000 MG CAPSULE PO SCH (09:38)
[2018-02-12 16:08] VITALS: BP 113/72
[2018-02-12] MEDS: ATORVASTATIN CALCIUM 40 MG TABLET PO SCH (20:29)
[2018-02-12] MEDS: BENZTROPINE MESYLATE 2 MG TABLET PO SCH (20:29)
[2018-02-13 00:25] VITALS: BP 103/69
[2018-02-13 08:32] VITALS: BP 108/60
[2018-02-13] MEDS: CloZAPine 100 MG TABLET PO SCH ×2 (08:38→20:39)
[2018-02-13] MEDS: DOCUSATE SODIUM 250 MG CAPSULE PO SCH ×2 (08:38→16:38)
[2018-02-13] MEDS: OMEGA-3/DHA/EPA/FISH OIL 1,000 MG CAPSULE PO SCH (08:38)
[2018-02-13] MEDS: PANTOPRAZOLE SODIUM 40 MG DR TABLET PO SCH (08:38)
[2018-02-13 16:19] VITALS: BP 122/78
[2018-02-13] MEDS: BENZTROPINE MESYLATE 2 MG TABLET PO SCH (20:39)
[2018-02-13] MEDS: ATORVASTATIN CALCIUM 40 MG TABLET PO SCH (20:39)
[2018-02-14 06:36] VITALS: BP 139/60
[2018-02-14 08:00] VITALS: BP 122/71
[2018-02-14 08:28] LABS: BASOPHILS % (AUTO) 0.5 % (0.0-2.0); EOSINOPHILS % (AUTO) 3.3 % (1.0-6.0); HEMATOCRIT 38.8 % (36-46); HEMOGLOBIN 12.9 g/dL (12.0-16.0); LYMPHOCYTES # (AUTO) 4.7 K/uL (1.0-4.8); LYMPHOCYTES % (AUTO) 48.2 % (22.0-44.0); MEAN CORPUSCULAR HEMOGLOBIN 29.1 pg (26.0-34.0); MEAN CORPUSCULAR HGB CONC 33.2 G/dL (31.0-37.0); MEAN CORPUSCULAR VOLUME 88 fL (80-100); MONOCYTES # (AUTO) 0.7 K/uL (0.1-1.0); MONOCYTES % (AUTO) 7.6 % (2.0-9.0); NEUTROPHILS % (AUTO) 40.4 % (40.0-70.0); PLATELET COUNT (AUTO) 278 K/uL (150-450); RED BLOOD CELL COUNT(AUTO) 4.43 MIL/uL (4.00-5.20); RED CELL DISTRIBUTION WIDTH 14.4 % (11.5-14.5)
[2018-02-14] MEDS: DOCUSATE SODIUM 250 MG CAPSULE PO SCH ×2 (08:28→16:13)
[2018-02-14] MEDS: OMEGA-3/DHA/EPA/FISH OIL 1,000 MG CAPSULE PO SCH (08:28)
[2018-02-14] MEDS: PANTOPRAZOLE SODIUM 40 MG DR TABLET PO SCH (08:28)
[2018-02-14] MEDS: CloZAPine 100 MG TABLET PO SCH ×2 (08:28→20:49)
[2018-02-14 16:15] VITALS: BP 122/85
[2018-02-14] MEDS: ATORVASTATIN CALCIUM 40 MG TABLET PO SCH (20:49)
[2018-02-14] MEDS: BENZTROPINE MESYLATE 2 MG TABLET PO SCH (20:49)
[2018-02-15] VITALS: BP 137/70
[2018-02-15 08:18] VITALS: BP 98/60
[2018-02-15] MEDS: PANTOPRAZOLE SODIUM 40 MG DR TABLET PO SCH (08:32)
[2018-02-15] MEDS: DOCUSATE SODIUM 250 MG CAPSULE PO SCH ×2 (08:32→16:12)
[2018-02-15] MEDS: OMEGA-3/DHA/EPA/FISH OIL 1,000 MG CAPSULE PO SCH (08:32)
[2018-02-15] MEDS: CloZAPine 100 MG TABLET PO SCH ×2 (08:33→20:08)
[2018-02-15 16:18] VITALS: BP 104/79
[2018-02-15] MEDS: ATORVASTATIN CALCIUM 40 MG TABLET PO SCH (20:08)
[2018-02-15] MEDS: BENZTROPINE MESYLATE 2 MG TABLET PO SCH (20:08)
[2018-02-16 00:05] VITALS: BP 137/79
[2018-02-16] MEDS: OMEGA-3/DHA/EPA/FISH OIL 1,000 MG CAPSULE PO SCH (08:05)
[2018-02-16] MEDS: DOCUSATE SODIUM 250 MG CAPSULE PO SCH ×2 (08:05→16:06)
[2018-02-16] MEDS: PANTOPRAZOLE SODIUM 40 MG DR TABLET PO SCH (08:05)
[2018-02-16] MEDS: CloZAPine 100 MG TABLET PO SCH ×2 (08:05→20:08)
[2018-02-16 08:14] VITALS: BP 115/61
[2018-02-16 16:17] VITALS: BP 129/72
[2018-02-16] MEDS: BENZTROPINE MESYLATE 2 MG TABLET PO SCH (20:08)
[2018-02-16] MEDS: ATORVASTATIN CALCIUM 40 MG TABLET PO SCH (20:08)
[2018-02-17 06:35] VITALS: BP 147/85
[2018-02-17 08:32] VITALS: BP 122/69
[2018-02-17] MEDS: PANTOPRAZOLE SODIUM 40 MG DR TABLET PO SCH (08:48)
[2018-02-17] MEDS: CloZAPine 100 MG TABLET PO SCH ×2 (08:48→20:13)
[2018-02-17] MEDS: OMEGA-3/DHA/EPA/FISH OIL 1,000 MG CAPSULE PO SCH (08:48)
[2018-02-17] MEDS: DOCUSATE SODIUM 250 MG CAPSULE PO SCH ×2 (08:48→16:39)
[2018-02-17] MEDS: MAGNESIUM CITRATE 300 ML ORAL SOLUTION PO PRN (10:30)
[2018-02-17 16:12] VITALS: BP 124/78
[2018-02-17] MEDS: BENZTROPINE MESYLATE 2 MG TABLET PO SCH (20:13)
[2018-02-17] MEDS: ATORVASTATIN CALCIUM 40 MG TABLET PO SCH (20:13)
[2018-02-18 00:10] VITALS: BP 104/61
[2018-02-18] MEDS: OMEGA-3/DHA/EPA/FISH OIL 1,000 MG CAPSULE PO SCH (08:07)
[2018-02-18] MEDS: PANTOPRAZOLE SODIUM 40 MG DR TABLET PO SCH (08:07)
[2018-02-18] MEDS: DOCUSATE SODIUM 250 MG CAPSULE PO SCH ×2 (08:07→16:06)
[2018-02-18] MEDS: CloZAPine 100 MG TABLET PO SCH ×2 (08:08→20:15)
[2018-02-18 09:12] VITALS: BP 110/64
[2018-02-18 16:42] VITALS: BP 103/60
[2018-02-18] MEDS: BENZTROPINE MESYLATE 2 MG TABLET PO SCH (20:15)
[2018-02-18] MEDS: ATORVASTATIN CALCIUM 40 MG TABLET PO SCH (20:15)
[2018-02-19 01:16] VITALS: BP 139/84
[2018-02-19] MEDS: DOCUSATE SODIUM 250 MG CAPSULE PO SCH ×2 (08:13→16:12)
[2018-02-19] MEDS: CloZAPine 100 MG TABLET PO SCH ×2 (08:13→20:14)
[2018-02-19] MEDS: OMEGA-3/DHA/EPA/FISH OIL 1,000 MG CAPSULE PO SCH (08:13)
[2018-02-19] MEDS: PANTOPRAZOLE SODIUM 40 MG DR TABLET PO SCH (08:13)
[2018-02-19 08:39] VITALS: BP 124/70
[2018-02-19 16:10] VITALS: BP 117/79
[2018-02-19] MEDS: ATORVASTATIN CALCIUM 40 MG TABLET PO SCH (20:13)
[2018-02-19] MEDS: BENZTROPINE MESYLATE 2 MG TABLET PO SCH (20:14)
[2018-02-20 03:30] VITALS: BP 121/60
[2018-02-20] MEDS: PANTOPRAZOLE SODIUM 40 MG DR TABLET PO SCH (08:34)
[2018-02-20] MEDS: OMEGA-3/DHA/EPA/FISH OIL 1,000 MG CAPSULE PO SCH (08:34)
[2018-02-20] MEDS: CloZAPine 100 MG TABLET PO SCH ×2 (08:34→20:50)
[2018-02-20] MEDS: DOCUSATE SODIUM 250 MG CAPSULE PO SCH ×2 (08:34→16:48)
[2018-02-20 08:38] VITALS: BP 112/63
[2018-02-20 16:08] VITALS: BP 116/68
[2018-02-20] MEDS: BENZTROPINE MESYLATE 2 MG TABLET PO SCH (20:50)
[2018-02-20] MEDS: ATORVASTATIN CALCIUM 40 MG TABLET PO SCH (20:50)
[2018-02-21] MEDS: MAG HYDROX/AL HYDROX/SIMETH ES 30 ML SUSPENSION UDCUP PO PRN ×2 (00:03→09:19)
[2018-02-21 04:17] VITALS: BP 101/64
[2018-02-21] MEDS: OMEGA-3/DHA/EPA/FISH OIL 1,000 MG CAPSULE PO SCH (08:08)
[2018-02-21] MEDS: DOCUSATE SODIUM 250 MG CAPSULE PO SCH ×2 (08:08→16:30)
[2018-02-21] MEDS: PANTOPRAZOLE SODIUM 40 MG DR TABLET PO SCH (08:08)
[2018-02-21] MEDS: CloZAPine 100 MG TABLET PO SCH ×2 (08:09→20:40)
[2018-02-21 08:17] LABS: BASOPHILS % (AUTO) 0.4 % (0.0-2.0); EOSINOPHILS % (AUTO) 3.2 % (1.0-6.0); HEMATOCRIT 40.7 % (36-46); HEMOGLOBIN 13.6 g/dL (12.0-16.0); LYMPHOCYTES # (AUTO) 4.9 K/uL (1.0-4.8); LYMPHOCYTES % (AUTO) 46.1 % (22.0-44.0); MEAN CORPUSCULAR HEMOGLOBIN 29.1 pg (26.0-34.0); MEAN CORPUSCULAR HGB CONC 33.4 G/dL (31.0-37.0); MEAN CORPUSCULAR VOLUME 87 fL (80-100); MONOCYTES # (AUTO) 0.7 K/uL (0.1-1.0); MONOCYTES % (AUTO) 6.9 % (2.0-9.0); NEUTROPHILS # (AUTO) 4.6 K/uL (1.8-7.7); NEUTROPHILS % (AUTO) 43.4 % (40.0-70.0); PLATELET COUNT (AUTO) 288 K/uL (150-450); RED BLOOD CELL COUNT(AUTO) 4.67 MIL/uL (4.00-5.20); RED CELL DISTRIBUTION WIDTH 14.4 % (11.5-14.5)
[2018-02-21 08:27] VITALS: BP 119/60
[2018-02-21 16:05] VITALS: BP 122/63
[2018-02-21] MEDS: BENZTROPINE MESYLATE 2 MG TABLET PO SCH (20:40)
[2018-02-21] MEDS: ATORVASTATIN CALCIUM 40 MG TABLET PO SCH (20:40)
[2018-02-22 07:02] VITALS: BP 120/78
[2018-02-22 08:32] VITALS: BP 110/76
[2018-02-22] MEDS: OMEGA-3/DHA/EPA/FISH OIL 1,000 MG CAPSULE PO SCH (09:09)
[2018-02-22] MEDS: CloZAPine 100 MG TABLET PO SCH ×2 (09:09→20:37)
[2018-02-22] MEDS: DOCUSATE SODIUM 250 MG CAPSULE PO SCH ×2 (09:09→16:38)
[2018-02-22] MEDS: PANTOPRAZOLE SODIUM 40 MG DR TABLET PO SCH (09:09)
[2018-02-22 16:08] VITALS: BP 114/63
[2018-02-22] MEDS: ATORVASTATIN CALCIUM 40 MG TABLET PO SCH (20:37)
[2018-02-22] MEDS: BENZTROPINE MESYLATE 2 MG TABLET PO SCH (20:37)
[2018-02-23 01:30] VITALS: BP 130/68
[2018-02-23] MEDS: OMEGA-3/DHA/EPA/FISH OIL 1,000 MG CAPSULE PO SCH (08:34)
[2018-02-23] MEDS: DOCUSATE SODIUM 250 MG CAPSULE PO SCH ×2 (08:34→16:34)
[2018-02-23] MEDS: PANTOPRAZOLE SODIUM 40 MG DR TABLET PO SCH (08:35)
[2018-02-23] MEDS: CloZAPine 100 MG TABLET PO SCH ×2 (08:35→20:43)
[2018-02-23 08:42] VITALS: BP 111/64
[2018-02-23 16:00] VITALS: BP 119/73
[2018-02-23] MEDS: BENZTROPINE MESYLATE 2 MG TABLET PO SCH (20:43)
[2018-02-23] MEDS: ATORVASTATIN CALCIUM 40 MG TABLET PO SCH (20:43)
[2018-02-24 06:57] VITALS: BP 111/77
[2018-02-24] MEDS: DOCUSATE SODIUM 250 MG CAPSULE PO SCH ×2 (08:06→16:39)
[2018-02-24] MEDS: OMEGA-3/DHA/EPA/FISH OIL 1,000 MG CAPSULE PO SCH (08:06)
[2018-02-24] MEDS: CloZAPine 100 MG TABLET PO SCH ×2 (08:06→22:29)
[2018-02-24] MEDS: PANTOPRAZOLE SODIUM 40 MG DR TABLET PO SCH (08:06)
[2018-02-24 08:08] VITALS: BP 106/67
[2018-02-24 16:20] VITALS: BP 116/68
[2018-02-24] MEDS: ATORVASTATIN CALCIUM 40 MG TABLET PO SCH (22:29)
[2018-02-24] MEDS: BENZTROPINE MESYLATE 2 MG TABLET PO SCH (22:29)
[2018-02-25 06:30] VITALS: BP 122/70
[2018-02-25 08:39] VITALS: BP 118/60
[2018-02-25] MEDS: DOCUSATE SODIUM 250 MG CAPSULE PO SCH ×2 (08:46→16:08)
[2018-02-25] MEDS: OMEGA-3/DHA/EPA/FISH OIL 1,000 MG CAPSULE PO SCH (08:46)
[2018-02-25] MEDS: CloZAPine 100 MG TABLET PO SCH ×2 (08:46→21:06)
[2018-02-25] MEDS: PANTOPRAZOLE SODIUM 40 MG DR TABLET PO SCH (08:46)
[2018-02-25 16:35] VITALS: BP 125/65
[2018-02-25] MEDS: BENZTROPINE MESYLATE 2 MG TABLET PO SCH (21:06)
[2018-02-25] MEDS: ATORVASTATIN CALCIUM 40 MG TABLET PO SCH (21:06)
[2018-02-26 06:26] VITALS: BP 117/65
[2018-02-26] MEDS: CloZAPine 100 MG TABLET PO SCH ×2 (08:18→20:40)
[2018-02-26] MEDS: DOCUSATE SODIUM 250 MG CAPSULE PO SCH ×2 (08:19→16:42)
[2018-02-26] MEDS: PANTOPRAZOLE SODIUM 40 MG DR TABLET PO SCH (08:19)
[2018-02-26] MEDS: OMEGA-3/DHA/EPA/FISH OIL 1,000 MG CAPSULE PO SCH (08:19)
[2018-02-26 08:28] VITALS: BP 114/69
[2018-02-26 16:24] VITALS: BP 117/72
[2018-02-26] MEDS: ATORVASTATIN CALCIUM 40 MG TABLET PO SCH (20:40)
[2018-02-26] MEDS: BENZTROPINE MESYLATE 2 MG TABLET PO SCH (20:40)
[2018-02-27 06:49] VITALS: BP 128/67
[2018-02-27 08:32] VITALS: BP 107/66
[2018-02-27] MEDS: OMEGA-3/DHA/EPA/FISH OIL 1,000 MG CAPSULE PO SCH (08:41)
[2018-02-27] MEDS: PANTOPRAZOLE SODIUM 40 MG DR TABLET PO SCH (08:41)
[2018-02-27] MEDS: DOCUSATE SODIUM 250 MG CAPSULE PO SCH ×2 (08:41→16:44)
[2018-02-27] MEDS: CloZAPine 100 MG TABLET PO SCH ×2 (08:41→20:47)
[2018-02-27] MEDS: MAGNESIUM CITRATE 300 ML ORAL SOLUTION PO PRN (09:52)
[2018-02-27 16:18] VITALS: BP 109/64
[2018-02-27] MEDS: ATORVASTATIN CALCIUM 40 MG TABLET PO SCH (20:47)
[2018-02-27] MEDS: BENZTROPINE MESYLATE 2 MG TABLET PO SCH (20:48)
[2018-02-28 06:28] VITALS: BP 132/75
[2018-02-28 08:00] VITALS: BP 112/67
[2018-02-28 08:18] LABS: BASOPHILS % (AUTO) 0.5 % (0.0-2.0); EOSINOPHILS % (AUTO) 3.3 % (1.0-6.0); HEMATOCRIT 40.2 % (36-46); HEMOGLOBIN 13.4 g/dL (12.0-16.0); LYMPHOCYTES # (AUTO) 5.4 K/uL (1.0-4.8); LYMPHOCYTES % (AUTO) 49.2 % (22.0-44.0); MEAN CORPUSCULAR HGB CONC 33.2 G/dL (31.0-37.0); MEAN CORPUSCULAR VOLUME 87 fL (80-100); MONOCYTES # (AUTO) 0.7 K/uL (0.1-1.0); MONOCYTES % (AUTO) 6.2 % (2.0-9.0); NEUTROPHILS # (AUTO) 4.5 K/uL (1.8-7.7); NEUTROPHILS % (AUTO) 40.8 % (40.0-70.0); PLATELET COUNT (AUTO) 298 K/uL (150-450); RED CELL DISTRIBUTION WIDTH 14.4 % (11.5-14.5)
[2018-02-28] MEDS: OMEGA-3/DHA/EPA/FISH OIL 1,000 MG CAPSULE PO SCH (08:38)
[2018-02-28] MEDS: CloZAPine 100 MG TABLET PO SCH ×2 (08:38→20:32)
[2018-02-28] MEDS: PANTOPRAZOLE SODIUM 40 MG DR TABLET PO SCH (08:38)
[2018-02-28] MEDS: DOCUSATE SODIUM 250 MG CAPSULE PO SCH ×2 (08:38→16:34)
[2018-02-28 16:13] VITALS: BP 115/81
[2018-02-28] MEDS: BENZTROPINE MESYLATE 2 MG TABLET PO SCH (20:32)
[2018-02-28] MEDS: ATORVASTATIN CALCIUM 40 MG TABLET PO SCH (20:32)
[2018-03-01 04:03] VITALS: BP 136/69
[2018-03-01 08:05] VITALS: BP 108/66
[2018-03-01] MEDS: DOCUSATE SODIUM 250 MG CAPSULE PO SCH ×2 (08:11→16:47)
[2018-03-01] MEDS: CloZAPine 100 MG TABLET PO SCH ×2 (08:11→20:37)
[2018-03-01] MEDS: OMEGA-3/DHA/EPA/FISH OIL 1,000 MG CAPSULE PO SCH (08:11)
[2018-03-01] MEDS: PANTOPRAZOLE SODIUM 40 MG DR TABLET PO SCH (08:11)
[2018-03-01 10:42] VITALS: BP 108/66
[2018-03-01 16:20] VITALS: BP 113/72
[2018-03-01] MEDS: ATORVASTATIN CALCIUM 40 MG TABLET PO SCH (20:37)
[2018-03-01] MEDS: BENZTROPINE MESYLATE 2 MG TABLET PO SCH (20:37)
[2018-03-02 07:08] VITALS: BP 119/72
[2018-03-02 08:00] VITALS: BP 111/66
[2018-03-02] MEDS: CloZAPine 100 MG TABLET PO SCH ×2 (08:17→20:43)
[2018-03-02] MEDS: OMEGA-3/DHA/EPA/FISH OIL 1,000 MG CAPSULE PO SCH (08:17)
[2018-03-02] MEDS: DOCUSATE SODIUM 250 MG CAPSULE PO SCH ×2 (08:17→16:45)
[2018-03-02] MEDS: PANTOPRAZOLE SODIUM 40 MG DR TABLET PO SCH (08:17)
[2018-03-02 16:05] VITALS: BP 131/83
[2018-03-02] MEDS: BENZTROPINE MESYLATE 2 MG TABLET PO SCH (20:43)
[2018-03-02] MEDS: ATORVASTATIN CALCIUM 40 MG TABLET PO SCH (20:43)
[2018-03-03 07:33] VITALS: BP 105/60
[2018-03-03 08:00] VITALS: BP 133/76
[2018-03-03] MEDS: DOCUSATE SODIUM 250 MG CAPSULE PO SCH ×2 (08:16→16:36)
[2018-03-03] MEDS: CloZAPine 100 MG TABLET PO SCH ×2 (08:16→20:46)
[2018-03-03] MEDS: PANTOPRAZOLE SODIUM 40 MG DR TABLET PO SCH (08:16)
[2018-03-03] MEDS: OMEGA-3/DHA/EPA/FISH OIL 1,000 MG CAPSULE PO SCH (08:16)
[2018-03-03 16:28] VITALS: BP 110/65
[2018-03-03] MEDS: BENZTROPINE MESYLATE 2 MG TABLET PO SCH (20:46)
[2018-03-03] MEDS: ATORVASTATIN CALCIUM 40 MG TABLET PO SCH (20:46)
[2018-03-04 05:56] VITALS: BP 105/63
[2018-03-04 08:28] VITALS: BP 128/80
[2018-03-04] MEDS: CloZAPine 100 MG TABLET PO SCH ×2 (08:31→20:38)
[2018-03-04] MEDS: DOCUSATE SODIUM 250 MG CAPSULE PO SCH ×2 (08:31→16:26)
[2018-03-04] MEDS: PANTOPRAZOLE SODIUM 40 MG DR TABLET PO SCH (08:31)
[2018-03-04] MEDS: OMEGA-3/DHA/EPA/FISH OIL 1,000 MG CAPSULE PO SCH (08:31)
[2018-03-04 16:08] VITALS: BP 130/74
[2018-03-04] MEDS: ATORVASTATIN CALCIUM 40 MG TABLET PO SCH (20:38)
[2018-03-04] MEDS: BENZTROPINE MESYLATE 2 MG TABLET PO SCH (20:38)
[2018-03-05 06:19] VITALS: BP 122/60
[2018-03-05] MEDS: PANTOPRAZOLE SODIUM 40 MG DR TABLET PO SCH (08:15)
[2018-03-05] MEDS: OMEGA-3/DHA/EPA/FISH OIL 1,000 MG CAPSULE PO SCH (08:15)
[2018-03-05] MEDS: DOCUSATE SODIUM 250 MG CAPSULE PO SCH ×2 (08:15→16:29)
[2018-03-05] MEDS: CloZAPine 100 MG TABLET PO SCH ×2 (08:16→20:56)
[2018-03-05 08:35] VITALS: BP 106/67
[2018-03-05 16:07] VITALS: BP 113/66
[2018-03-05] MEDS: BENZTROPINE MESYLATE 2 MG TABLET PO SCH (20:56)
[2018-03-05] MEDS: ATORVASTATIN CALCIUM 40 MG TABLET PO SCH (20:56)
[2018-03-06 06:46] VITALS: BP 110/68
[2018-03-06 08:34] VITALS: BP 132/73
[2018-03-06] MEDS: DOCUSATE SODIUM 250 MG CAPSULE PO SCH ×2 (08:49→17:03)
[2018-03-06] MEDS: OMEGA-3/DHA/EPA/FISH OIL 1,000 MG CAPSULE PO SCH (08:49)
[2018-03-06] MEDS: CloZAPine 100 MG TABLET PO SCH ×2 (08:50→20:52)
[2018-03-06] MEDS: PANTOPRAZOLE SODIUM 40 MG DR TABLET PO SCH (08:51)
[2018-03-06 16:08] VITALS: BP 122/85
[2018-03-06] MEDS: ATORVASTATIN CALCIUM 40 MG TABLET PO SCH (20:52)
[2018-03-06] MEDS: BENZTROPINE MESYLATE 2 MG TABLET PO SCH (20:52)
[2018-03-07 00:30] VITALS: BP 139/89
[2018-03-07] MEDS: LORazepam 2 MG TABLET PO PRN ×2 (00:35→20:08)
[2018-03-07] MEDS: QUEtiapine FUMARATE 100 MG TABLET PO PRN (01:17)
[2018-03-07] MEDS: CloZAPine 100 MG TABLET PO SCH ×2 (08:11→20:08)
[2018-03-07] MEDS: DOCUSATE SODIUM 250 MG CAPSULE PO SCH ×2 (08:11→16:34)
[2018-03-07] MEDS: PANTOPRAZOLE SODIUM 40 MG DR TABLET PO SCH (08:11)
[2018-03-07] MEDS: OMEGA-3/DHA/EPA/FISH OIL 1,000 MG CAPSULE PO SCH (08:11)
[2018-03-07 08:14] LABS: BASOPHILS % (AUTO) 0.6 % (0.0-2.0); EOSINOPHILS % (AUTO) 2.6 % (1.0-6.0); HEMATOCRIT 39.2 % (36-46); HEMOGLOBIN 13.2 g/dL (12.0-16.0); LYMPHOCYTES # (AUTO) 4.9 K/uL (1.0-4.8); LYMPHOCYTES % (AUTO) 45.7 % (22.0-44.0); MEAN CORPUSCULAR HEMOGLOBIN 29.5 pg (26.0-34.0); MEAN CORPUSCULAR HGB CONC 33.6 G/dL (31.0-37.0); MEAN CORPUSCULAR VOLUME 88 fL (80-100); MONOCYTES # (AUTO) 0.8 K/uL (0.1-1.0); MONOCYTES % (AUTO) 7.5 % (2.0-9.0); NEUTROPHILS # (AUTO) 4.7 K/uL (1.8-7.7); NEUTROPHILS % (AUTO) 43.6 % (40.0-70.0); PLATELET COUNT (AUTO) 297 K/uL (150-450); RED BLOOD CELL COUNT(AUTO) 4.47 MIL/uL (4.00-5.20); RED CELL DISTRIBUTION WIDTH 14.3 % (11.5-14.5)
[2018-03-07 08:26] VITALS: BP 113/67
[2018-03-07] MEDS: MAGNESIUM CITRATE 300 ML ORAL SOLUTION PO PRN (12:54)
[2018-03-07 16:30] VITALS: BP 134/81
[2018-03-07] MEDS: ATORVASTATIN CALCIUM 40 MG TABLET PO SCH (20:08)
[2018-03-07] MEDS: BENZTROPINE MESYLATE 2 MG TABLET PO SCH (20:08)
[2018-03-08 01:13] VITALS: BP 118/71
[2018-03-08] MEDS: PANTOPRAZOLE SODIUM 40 MG DR TABLET PO SCH (08:05)
[2018-03-08] MEDS: CloZAPine 100 MG TABLET PO SCH ×2 (08:05→20:50)
[2018-03-08] MEDS: DOCUSATE SODIUM 250 MG CAPSULE PO SCH ×2 (08:06→16:41)
[2018-03-08] MEDS: OMEGA-3/DHA/EPA/FISH OIL 1,000 MG CAPSULE PO SCH (08:06)
[2018-03-08 09:23] VITALS: BP 115/73
[2018-03-08 16:44] VITALS: BP 112/60
[2018-03-08] MEDS: ATORVASTATIN CALCIUM 40 MG TABLET PO SCH (20:50)
[2018-03-08] MEDS: BENZTROPINE MESYLATE 2 MG TABLET PO SCH (20:50)
[2018-03-09 02:30] VITALS: BP 123/60
[2018-03-09 08:41] VITALS: BP 111/66
[2018-03-09] MEDS: DOCUSATE SODIUM 250 MG CAPSULE PO SCH ×2 (08:44→16:39)
[2018-03-09] MEDS: OMEGA-3/DHA/EPA/FISH OIL 1,000 MG CAPSULE PO SCH (08:44)
[2018-03-09] MEDS: CloZAPine 100 MG TABLET PO SCH ×2 (08:44→20:37)
[2018-03-09] MEDS: PANTOPRAZOLE SODIUM 40 MG DR TABLET PO SCH (08:44)
[2018-03-09 16:14] VITALS: BP 113/72
[2018-03-09] MEDS: ATORVASTATIN CALCIUM 40 MG TABLET PO SCH (20:36)
[2018-03-09] MEDS: BENZTROPINE MESYLATE 2 MG TABLET PO SCH (20:36)
[2018-03-10 00:10] VITALS: BP 141/73
[2018-03-10 08:16] VITALS: BP 131/78
[2018-03-10] MEDS: OMEGA-3/DHA/EPA/FISH OIL 1,000 MG CAPSULE PO SCH (08:34)
[2018-03-10] MEDS: PANTOPRAZOLE SODIUM 40 MG DR TABLET PO SCH (08:34)
[2018-03-10] MEDS: CloZAPine 100 MG TABLET PO SCH ×2 (08:34→20:06)
[2018-03-10] MEDS: DOCUSATE SODIUM 250 MG CAPSULE PO SCH ×2 (08:34→16:54)
[2018-03-10 16:04] VITALS: BP 121/68
[2018-03-10] MEDS: BENZTROPINE MESYLATE 2 MG TABLET PO SCH (20:06)
[2018-03-10] MEDS: ATORVASTATIN CALCIUM 40 MG TABLET PO SCH (20:06)
[2018-03-11 04:50] VITALS: BP 123/90
[2018-03-11 08:09] VITALS: BP 129/86
[2018-03-11] MEDS: OMEGA-3/DHA/EPA/FISH OIL 1,000 MG CAPSULE PO SCH (08:13)
[2018-03-11] MEDS: PANTOPRAZOLE SODIUM 40 MG DR TABLET PO SCH (08:13)
[2018-03-11] MEDS: CloZAPine 100 MG TABLET PO SCH ×2 (08:13→20:37)
[2018-03-11] MEDS: DOCUSATE SODIUM 250 MG CAPSULE PO SCH ×2 (08:13→16:29)
[2018-03-11 16:14] VITALS: BP 119/71
[2018-03-11] MEDS: ATORVASTATIN CALCIUM 40 MG TABLET PO SCH (20:37)
[2018-03-11] MEDS: BENZTROPINE MESYLATE 2 MG TABLET PO SCH (20:37)
[2018-03-12 00:50] VITALS: BP 112/60
[2018-03-12 08:26] VITALS: BP 132/71
[2018-03-12] MEDS: PANTOPRAZOLE SODIUM 40 MG DR TABLET PO SCH (08:37)
[2018-03-12] MEDS: OMEGA-3/DHA/EPA/FISH OIL 1,000 MG CAPSULE PO SCH (08:37)
[2018-03-12] MEDS: DOCUSATE SODIUM 250 MG CAPSULE PO SCH ×2 (08:37→16:48)
[2018-03-12] MEDS: CloZAPine 100 MG TABLET PO SCH ×2 (08:37→20:39)
[2018-03-12 16:28] VITALS: BP 111/77
[2018-03-12] MEDS: ATORVASTATIN CALCIUM 40 MG TABLET PO SCH (20:39)
[2018-03-12] MEDS: BENZTROPINE MESYLATE 2 MG TABLET PO SCH (20:40)
[2018-03-13 02:23] VITALS: BP 124/63
[2018-03-13 08:23] VITALS: BP 113/63
[2018-03-13] MEDS: PANTOPRAZOLE SODIUM 40 MG DR TABLET PO SCH (08:52)
[2018-03-13] MEDS: DOCUSATE SODIUM 250 MG CAPSULE PO SCH ×2 (08:52→16:41)
[2018-03-13] MEDS: OMEGA-3/DHA/EPA/FISH OIL 1,000 MG CAPSULE PO SCH (08:52)
[2018-03-13] MEDS: CloZAPine 100 MG TABLET PO SCH ×2 (08:52→20:38)
[2018-03-13 16:19] VITALS: BP 105/64
[2018-03-13] MEDS: ATORVASTATIN CALCIUM 40 MG TABLET PO SCH (20:38)
[2018-03-13] MEDS: BENZTROPINE MESYLATE 2 MG TABLET PO SCH (20:38)
[2018-03-14 04:54] VITALS: BP 126/75
[2018-03-14] MEDS: CloZAPine 100 MG TABLET PO SCH ×2 (08:15→20:39)
[2018-03-14] MEDS: PANTOPRAZOLE SODIUM 40 MG DR TABLET PO SCH (08:15)
[2018-03-14] MEDS: OMEGA-3/DHA/EPA/FISH OIL 1,000 MG CAPSULE PO SCH (08:15)
[2018-03-14] MEDS: DOCUSATE SODIUM 250 MG CAPSULE PO SCH ×2 (08:15→16:37)
[2018-03-14 08:39] VITALS: BP 115/66
[2018-03-14 09:38] LABS: BASOPHILS % (AUTO) 0.9 % (0.0-2.0); EOSINOPHILS % (AUTO) 3.1 % (1.0-6.0); HEMATOCRIT 38.5 % (36-46); HEMOGLOBIN 12.9 g/dL (12.0-16.0); LYMPHOCYTES # (AUTO) 4.2 K/uL (1.0-4.8); MEAN CORPUSCULAR HEMOGLOBIN 29.5 pg (26.0-34.0); MEAN CORPUSCULAR HGB CONC 33.6 G/dL (31.0-37.0); MEAN CORPUSCULAR VOLUME 88 fL (80-100); MONOCYTES # (AUTO) 0.7 K/uL (0.1-1.0); MONOCYTES % (AUTO) 7.4 % (2.0-9.0); NEUTROPHILS # (AUTO) 3.9 K/uL (1.8-7.7); NEUTROPHILS % (AUTO) 42.6 % (40.0-70.0); PLATELET COUNT (AUTO) 277 K/uL (150-450); RED BLOOD CELL COUNT(AUTO) 4.38 MIL/uL (4.00-5.20); RED CELL DISTRIBUTION WIDTH 14.5 % (11.5-14.5)
[2018-03-14 16:06] VITALS: BP 109/84
[2018-03-14] MEDS: ATORVASTATIN CALCIUM 40 MG TABLET PO SCH (20:40)
[2018-03-14] MEDS: BENZTROPINE MESYLATE 2 MG TABLET PO SCH (20:40)
[2018-03-15 06:03] VITALS: BP 116/85
[2018-03-15 07:43] VITALS: BP 129/73
[2018-03-15 08:25] VITALS: BP 129/73
[2018-03-15] MEDS: PANTOPRAZOLE SODIUM 40 MG DR TABLET PO SCH (08:36)
[2018-03-15] MEDS: CloZAPine 100 MG TABLET PO SCH ×2 (08:36→20:39)
[2018-03-15] MEDS: DOCUSATE SODIUM 250 MG CAPSULE PO SCH ×2 (08:36→16:42)
[2018-03-15] MEDS: OMEGA-3/DHA/EPA/FISH OIL 1,000 MG CAPSULE PO SCH (08:36)
[2018-03-15 16:34] VITALS: BP 135/85
[2018-03-15] MEDS: ATORVASTATIN CALCIUM 40 MG TABLET PO SCH (20:39)
[2018-03-15] MEDS: BENZTROPINE MESYLATE 2 MG TABLET PO SCH (20:39)
[2018-03-16 01:53] VITALS: BP 119/67
[2018-03-16] MEDS: DOCUSATE SODIUM 250 MG CAPSULE PO SCH ×2 (08:11→16:37)
[2018-03-16] MEDS: OMEGA-3/DHA/EPA/FISH OIL 1,000 MG CAPSULE PO SCH (08:11)
[2018-03-16] MEDS: CloZAPine 100 MG TABLET PO SCH ×2 (08:11→20:39)
[2018-03-16] MEDS: PANTOPRAZOLE SODIUM 40 MG DR TABLET PO SCH (08:11)
[2018-03-16 08:34] VITALS: BP 129/67
[2018-03-16 16:18] VITALS: BP 120/61
[2018-03-16] MEDS ORDERED: MUPIROCIN CALCIUM 2% 15 GM CREAM TP SCH (17:00)
[2018-03-16] MEDS: BENZTROPINE MESYLATE 2 MG TABLET PO SCH (20:39)
[2018-03-16] MEDS: ATORVASTATIN CALCIUM 40 MG TABLET PO SCH (20:39)
[2018-03-16] MEDS: MUPIROCIN CALCIUM 2% 22 GM OINTMENT NASAL SCH (21:34)
[2018-03-17 01:35] VITALS: BP 129/69
[2018-03-17] MEDS: CloZAPine 100 MG TABLET PO SCH ×2 (08:40→20:37)
[2018-03-17] MEDS: PANTOPRAZOLE SODIUM 40 MG DR TABLET PO SCH (08:40)
[2018-03-17] MEDS: DOCUSATE SODIUM 250 MG CAPSULE PO SCH ×2 (08:40→16:36)
[2018-03-17] MEDS: OMEGA-3/DHA/EPA/FISH OIL 1,000 MG CAPSULE PO SCH (08:40)
[2018-03-17] MEDS: MUPIROCIN CALCIUM 2% 22 GM OINTMENT NASAL SCH ×2 (08:41→16:36)
[2018-03-17 08:42] VITALS: BP 108/67
[2018-03-17 16:06] VITALS: BP 125/77
[2018-03-17] MEDS: ATORVASTATIN CALCIUM 40 MG TABLET PO SCH (20:37)
[2018-03-17] MEDS: BENZTROPINE MESYLATE 2 MG TABLET PO SCH (20:37)
[2018-03-18 05:41] VITALS: BP 120/82
[2018-03-18] MEDS: PANTOPRAZOLE SODIUM 40 MG DR TABLET PO SCH (08:18)
[2018-03-18] MEDS: OMEGA-3/DHA/EPA/FISH OIL 1,000 MG CAPSULE PO SCH (08:18)
[2018-03-18] MEDS: DOCUSATE SODIUM 250 MG CAPSULE PO SCH ×2 (08:18→16:22)
[2018-03-18] MEDS: CloZAPine 100 MG TABLET PO SCH ×2 (08:19→20:31)
[2018-03-18] MEDS: MUPIROCIN CALCIUM 2% 22 GM OINTMENT NASAL SCH ×2 (08:20→16:22)
[2018-03-18 08:31] VITALS: BP 122/86
[2018-03-18 16:14] VITALS: BP 127/72
[2018-03-18] MEDS: BENZTROPINE MESYLATE 2 MG TABLET PO SCH (20:30)
[2018-03-18] MEDS: ATORVASTATIN CALCIUM 40 MG TABLET PO SCH (20:30)
[2018-03-19 06:32] VITALS: BP 118/76
[2018-03-19 08:35] VITALS: BP 116/73
[2018-03-19] MEDS: PANTOPRAZOLE SODIUM 40 MG DR TABLET PO SCH (09:45)
[2018-03-19] MEDS: CloZAPine 100 MG TABLET PO SCH ×2 (09:45→20:30)
[2018-03-19] MEDS: MUPIROCIN CALCIUM 2% 22 GM OINTMENT NASAL SCH ×2 (09:46→16:33)
[2018-03-19] MEDS: OMEGA-3/DHA/EPA/FISH OIL 1,000 MG CAPSULE PO SCH (09:46)
[2018-03-19] MEDS: DOCUSATE SODIUM 250 MG CAPSULE PO SCH ×2 (09:46→16:33)
[2018-03-19 16:08] VITALS: BP 137/85
[2018-03-19] MEDS: ATORVASTATIN CALCIUM 40 MG TABLET PO SCH (20:29)
[2018-03-19] MEDS: BENZTROPINE MESYLATE 2 MG TABLET PO SCH (20:29)
[2018-03-20 04:25] VITALS: BP 120/82
[2018-03-20 08:09] VITALS: BP 109/70
[2018-03-20] MEDS: MUPIROCIN CALCIUM 2% 22 GM OINTMENT NASAL SCH ×2 (09:35→16:40)
[2018-03-20] MEDS: OMEGA-3/DHA/EPA/FISH OIL 1,000 MG CAPSULE PO SCH (09:35)
[2018-03-20] MEDS: CloZAPine 100 MG TABLET PO SCH ×2 (09:36→22:20)
[2018-03-20] MEDS: PANTOPRAZOLE SODIUM 40 MG DR TABLET PO SCH (09:36)
[2018-03-20] MEDS: DOCUSATE SODIUM 250 MG CAPSULE PO SCH ×2 (09:37→16:40)
[2018-03-20 16:00] VITALS: BP 119/70
[2018-03-20] MEDS: BENZTROPINE MESYLATE 2 MG TABLET PO SCH (22:20)
[2018-03-20] MEDS: ATORVASTATIN CALCIUM 40 MG TABLET PO SCH (22:20)
[2018-03-21 05:52] VITALS: BP 120/81
[2018-03-21 08:20] LABS: BASOPHILS % (AUTO) 0.6 % (0.0-2.0); EOSINOPHILS % (AUTO) 2.9 % (1.0-6.0); HEMATOCRIT 40.1 % (36-46); HEMOGLOBIN 13.3 g/dL (12.0-16.0); LYMPHOCYTES # (AUTO) 5.5 K/uL (1.0-4.8); LYMPHOCYTES % (AUTO) 47.6 % (22.0-44.0); MEAN CORPUSCULAR HEMOGLOBIN 29.1 pg (26.0-34.0); MEAN CORPUSCULAR HGB CONC 33.2 G/dL (31.0-37.0); MEAN CORPUSCULAR VOLUME 88 fL (80-100); MONOCYTES # (AUTO) 0.7 K/uL (0.1-1.0); MONOCYTES % (AUTO) 6.2 % (2.0-9.0); NEUTROPHILS # (AUTO) 4.9 K/uL (1.8-7.7); NEUTROPHILS % (AUTO) 42.7 % (40.0-70.0); PLATELET COUNT (AUTO) 294 K/uL (150-450); RED BLOOD CELL COUNT(AUTO) 4.58 MIL/uL (4.00-5.20); RED CELL DISTRIBUTION WIDTH 14.4 % (11.5-14.5)
[2018-03-21] MEDS: DOCUSATE SODIUM 250 MG CAPSULE PO SCH ×2 (08:47→16:38)
[2018-03-21] MEDS: PANTOPRAZOLE SODIUM 40 MG DR TABLET PO SCH (08:48)
[2018-03-21] MEDS: OMEGA-3/DHA/EPA/FISH OIL 1,000 MG CAPSULE PO SCH (08:48)
[2018-03-21 08:49] VITALS: BP 122/74
[2018-03-21] MEDS: CloZAPine 100 MG TABLET PO SCH ×2 (08:49→20:29)
[2018-03-21] MEDS: MUPIROCIN CALCIUM 2% 22 GM OINTMENT NASAL SCH (08:50)
[2018-03-21] MEDS: MAGNESIUM CITRATE 300 ML ORAL SOLUTION PO PRN (08:50)
[2018-03-21 09:03] LABS: ALANINE AMINOTRANSFERASE 42 U/L (12-78); ALBUMIN 3.3 g/dL (3.4-5.0); ALKALINE PHOSPHATASE 64 U/L (46-116); ANION GAP 7 mmol/L (8-16); ASPARTATE AMINOTRANSFERASE 16 U/L (15-37); BILIRUBIN,TOTAL 0.4 mg/dL (0.1-1.0); CALCIUM, TOTAL 9.1 mg/dL (8.8-10.5); CARBON DIOXIDE 28 mmol/L (22-29); CHLORIDE 106 mmol/L (98-107); CHOL/HDL RATIO 2.8 (3.9-5.7); CHOLESTEROL 125 mg/dL (131-200); FREE T4 (FREE THYROXINE) 0.68 ng/dL (0.76-1.46); GLOMERULAR FILTR. RATE CALC > 60 mL/min (>60); GLUCOSE,RANDOM 90 mg/dL (70-110); HDL CHOLESTEROL 44 mg/dL (40-60); LDL CHOL (CALC.) 52 mg/dL (0-130); POTASSIUM 4.1 mmol/L (3.5-5.1); SODIUM SERUM 141 mmol/L (136-145); THYROID STIMULATING HORMONE 3.42 uIU/mL (0.36-3.74); TOTAL PROTEIN, SERUM 6.6 g/dL (6.4-8.2); TRIGLYCERIDES 144 mg/dL (15-150); UREA NITROGEN, BLOOD 26 mg/dL (7-18)
[2018-03-21 16:43] VITALS: BP 111/65
[2018-03-21] MEDS: BENZTROPINE MESYLATE 2 MG TABLET PO SCH (20:29)
[2018-03-21] MEDS: ATORVASTATIN CALCIUM 40 MG TABLET PO SCH (20:30)
[2018-03-22 06:43] VITALS: BP 116/63
[2018-03-22 08:00] VITALS: BP 110/60
[2018-03-22] MEDS: OMEGA-3/DHA/EPA/FISH OIL 1,000 MG CAPSULE PO SCH (08:04)
[2018-03-22] MEDS: DOCUSATE SODIUM 250 MG CAPSULE PO SCH ×2 (08:04→16:35)
[2018-03-22] MEDS: CloZAPine 100 MG TABLET PO SCH ×2 (08:04→20:28)
[2018-03-22] MEDS: PANTOPRAZOLE SODIUM 40 MG DR TABLET PO SCH (08:04)
[2018-03-22 16:05] VITALS: BP 122/63
[2018-03-22] MEDS: BENZTROPINE MESYLATE 2 MG TABLET PO SCH (20:28)
[2018-03-22] MEDS: ATORVASTATIN CALCIUM 40 MG TABLET PO SCH (20:28)
[2018-03-23 02:23] VITALS: BP 101/62
[2018-03-23] MEDS: DOCUSATE SODIUM 250 MG CAPSULE PO SCH ×2 (08:11→16:03)
[2018-03-23] MEDS: PANTOPRAZOLE SODIUM 40 MG DR TABLET PO SCH (08:11)
[2018-03-23] MEDS: CloZAPine 100 MG TABLET PO SCH ×2 (08:11→20:12)
[2018-03-23] MEDS: OMEGA-3/DHA/EPA/FISH OIL 1,000 MG CAPSULE PO SCH (08:11)
[2018-03-23 08:15] VITALS: BP 102/61
[2018-03-23 16:08] VITALS: BP 107/65
[2018-03-23] MEDS: BENZTROPINE MESYLATE 2 MG TABLET PO SCH (20:11)
[2018-03-23] MEDS: ATORVASTATIN CALCIUM 40 MG TABLET PO SCH (20:11)
[2018-03-24 01:00] VITALS: BP 106/67
[2018-03-24 08:14] VITALS: BP 120/61
[2018-03-24] MEDS: OMEGA-3/DHA/EPA/FISH OIL 1,000 MG CAPSULE PO SCH (08:20)
[2018-03-24] MEDS: DOCUSATE SODIUM 250 MG CAPSULE PO SCH ×2 (08:20→16:16)
[2018-03-24] MEDS: PANTOPRAZOLE SODIUM 40 MG DR TABLET PO SCH (08:20)
[2018-03-24] MEDS: CloZAPine 100 MG TABLET PO SCH ×2 (08:21→20:21)
[2018-03-24 16:05] VITALS: BP 132/81
[2018-03-24] MEDS: ATORVASTATIN CALCIUM 40 MG TABLET PO SCH (20:20)
[2018-03-24] MEDS: BENZTROPINE MESYLATE 2 MG TABLET PO SCH (20:21)
[2018-03-25 05:46] VITALS: BP 122/77
[2018-03-25 08:24] VITALS: BP 102/66
[2018-03-25] MEDS: CloZAPine 100 MG TABLET PO SCH ×2 (08:49→20:12)
[2018-03-25] MEDS: OMEGA-3/DHA/EPA/FISH OIL 1,000 MG CAPSULE PO SCH (08:49)
[2018-03-25] MEDS: DOCUSATE SODIUM 250 MG CAPSULE PO SCH ×2 (08:49→16:03)
[2018-03-25] MEDS: PANTOPRAZOLE SODIUM 40 MG DR TABLET PO SCH (08:49)
[2018-03-25 16:04] VITALS: BP 137/82
[2018-03-25] MEDS: ATORVASTATIN CALCIUM 40 MG TABLET PO SCH (20:12)
[2018-03-25] MEDS: BENZTROPINE MESYLATE 2 MG TABLET PO SCH (20:12)
[2018-03-26 00:02] VITALS: BP 123/60
[2018-03-26 08:06] VITALS: BP 103/70
[2018-03-26] MEDS: DOCUSATE SODIUM 250 MG CAPSULE PO SCH ×2 (08:12→16:34)
[2018-03-26] MEDS: PANTOPRAZOLE SODIUM 40 MG DR TABLET PO SCH (08:12)
[2018-03-26] MEDS: OMEGA-3/DHA/EPA/FISH OIL 1,000 MG CAPSULE PO SCH (08:12)
[2018-03-26] MEDS: CloZAPine 100 MG TABLET PO SCH ×2 (08:12→20:56)
[2018-03-26 09:07] LABS: ALANINE AMINOTRANSFERASE 49 U/L (12-78); ALBUMIN 3.1 g/dL (3.4-5.0); ALKALINE PHOSPHATASE 61 U/L (46-116); ANION GAP 5 mmol/L (8-16); ASPARTATE AMINOTRANSFERASE 22 U/L (15-37); BILIRUBIN,TOTAL 0.3 mg/dL (0.1-1.0); CALCIUM, TOTAL 8.9 mg/dL (8.8-10.5); CARBON DIOXIDE 28 mmol/L (22-29); CHLORIDE 110 mmol/L (98-107); CREATININE 0.87 mg/dL (0.60-1.30); GLOMERULAR FILTR. RATE CALC > 60 mL/min (>60); GLUCOSE,RANDOM 85 mg/dL (70-110); POTASSIUM 4.7 mmol/L (3.5-5.1); SODIUM SERUM 143 mmol/L (136-145); TOTAL PROTEIN, SERUM 6.2 g/dL (6.4-8.2); UREA NITROGEN, BLOOD 23 mg/dL (7-18)
[2018-03-26] MEDS ORDERED: TUBERCULIN, PURIFIED PROTEIN DERIVATIVE 5 TU/0.1 ML SYG ID ONE (13:00)
[2018-03-26 16:12] VITALS: BP 114/77
[2018-03-26] MEDS: BENZTROPINE MESYLATE 2 MG TABLET PO SCH (20:56)
[2018-03-26] MEDS: ATORVASTATIN CALCIUM 40 MG TABLET PO SCH (20:56)
[2018-03-27 01:51] VITALS: BP 100/72
[2018-03-27] MEDS: PANTOPRAZOLE SODIUM 40 MG DR TABLET PO SCH (08:07)
[2018-03-27] MEDS: DOCUSATE SODIUM 250 MG CAPSULE PO SCH ×2 (08:07→16:14)
[2018-03-27] MEDS: OMEGA-3/DHA/EPA/FISH OIL 1,000 MG CAPSULE PO SCH (08:07)
[2018-03-27] MEDS: CloZAPine 100 MG TABLET PO SCH ×2 (08:08→20:22)
[2018-03-27 08:27] VITALS: BP 110/68
[2018-03-27 16:00] VITALS: BP 120/85
[2018-03-27] MEDS: BENZTROPINE MESYLATE 2 MG TABLET PO SCH (20:22)
[2018-03-27] MEDS: ATORVASTATIN CALCIUM 40 MG TABLET PO SCH (20:27)
[2018-03-28 06:00] VITALS: BP 115/69
[2018-03-28 08:00] VITALS: BP 118/71
[2018-03-28 08:03] LABS: BASOPHILS % (AUTO) 0.4 % (0.0-2.0); HEMATOCRIT 40.5 % (36-46); HEMOGLOBIN 13.5 g/dL (12.0-16.0); LYMPHOCYTES # (AUTO) 4.9 K/uL (1.0-4.8); LYMPHOCYTES % (AUTO) 49.4 % (22.0-44.0); MEAN CORPUSCULAR HEMOGLOBIN 29.4 pg (26.0-34.0); MEAN CORPUSCULAR HGB CONC 33.3 G/dL (31.0-37.0); MEAN CORPUSCULAR VOLUME 88 fL (80-100); MONOCYTES # (AUTO) 0.7 K/uL (0.1-1.0); NEUTROPHILS % (AUTO) 40.2 % (40.0-70.0); PLATELET COUNT (AUTO) 305 K/uL (150-450); RED BLOOD CELL COUNT(AUTO) 4.58 MIL/uL (4.00-5.20); RED CELL DISTRIBUTION WIDTH 14.5 % (11.5-14.5)
[2018-03-28] MEDS ORDERED: DOCU250C91 PO (08:06)
[2018-03-28] MEDS ORDERED: ATOR40TA28 PO (08:06)
[2018-03-28] MEDS ORDERED: OMEG-12 PO (08:06)
[2018-03-28] MEDS: PANTOPRAZOLE SODIUM 40 MG DR TABLET PO SCH (08:40)
[2018-03-28] MEDS: DOCUSATE SODIUM 250 MG CAPSULE PO SCH (08:40)
[2018-03-28] MEDS: CloZAPine 100 MG TABLET PO SCH (08:41)
[2018-03-28] MEDS: OMEGA-3/DHA/EPA/FISH OIL 1,000 MG CAPSULE PO SCH (08:41)
== END 2018-03-28 11:15 | disposition home or self-care (01) | DRG 885 ==
LOC: EMS 07:16 → B2X 09:35
PROVIDERS: ATTEND Psychiatry & Neurology Psychiatry
DX: F20.0 Paranoid schizophrenia (principal); E11.9 Type 2 diabetes mellitus without complications; R45.851 Suicidal ideations; E03.9 Hypothyroidism, unspecified; F41.9 Anxiety disorder, unspecified; K21.9 Gastro-esophageal reflux disease without esophagitis; J44.9 Chronic obstructive pulmonary disease, unspecified; E87.6 Hypokalemia; K59.00 Constipation, unspecified; E78.00 Pure hypercholesterolemia, unspecified; I10 Essential (primary) hypertension; Z79.899 Other long term (current) drug therapy; Z80.9 Family history of malignant neoplasm, unspecified; Z82.49 Family history of ischemic heart disease and other diseases of the circulatory system
CPT/HCPCS: 83036; 84132; 84439; 84443; 87081; 99285; G0480